=== PATIENT | male | born 1950 ===

== ENCOUNTER 2020-05-28 11:56 | Inpatient (IN) | payer MEDICARE, OTHER, SELFPAY ==
[2020-05-28] VITALS (27 sets, daily range): BP systolic 89–161; BP diastolic 53–103; PULSE 80–106; RESP 11–24; TEMP 36.9–39.5; O2SAT 93–98; BMI 30.7
--- NOTE | 2020-05-28 | PATH_ITS ---
[facility] Accession Number: [id number] . 01 Material submitted: . colon - SIGMOID COLON . 01 Clinical history: . SYMPTOMS RELATED TO COVID, SOB, ABD PAIN STITCH IS IN PROXIMAL END . 02 Diagnosis: Sigmoid Colon, Sigmoid Colectomy: Acute suppurative diverticulitis with abscess formation. Serositis. Negative for dysplasia or malignancy. MRV 05/31/2020 1613 Local . 02 Electronically signed: . Tyesha Holliday MD, Pathologist NPI- [id number] . 01 Gross description: . The specimen is received in formalin, labeled sigmoid colon and consists of a 10.0 cm in length by 2.5 cm in diameter portion of colon with a suture designated proximal end. Both margins are stapled. The specimen has been previously partially opened. The serosa is richardson-pink to pink-purple with fibrinous adhesion, and there is a moderate amount of attached adipose tissue with adherent richardson-still purulent exudate. Opening reveals multiple diverticula and a 4.5 x 1.5 x 1.0 cm richardson-still to green abscess cavity extending into the adipose tissue, located greater than 4 cm from the proximal and distal margins. The wall thickness ranges from 0.3 to 2.0 cm. Sectioning through the attached adipose tissue reveals multiple lymph nodes ranging from 0.1 to 0.4 cm. Also received are multiple additional fragments of colon and richardson-yellow soft tissue measuring 4.5 x 3.0 x 2.0 cm in aggregate. Pneumatic Jack Operator sections are submitted. . A1: proximal margin, loan servicing representative perpendicular sections (blue). A2: distal margin, loan servicing representative perpendicular sections (black). A3-A4: loan servicing representative diverticula. A5-A6: loan servicing representative abscess cavity. A7: lymph nodes. A8: loan servicing representative sections of additional colon fragments. ([id number]) /MRV 05/30/2020 1637 Local . 02 Pathologist provided ICD-10: K57.00 . 02 CPT . 223066 Performed at: 01 [facility] [address] [id number] MD Leonard Cain MD Phone: [phone] Performed at: 02 [place] [id number] [address] [place] [id number] MD Tyesha Holliday MD Phone: [phone]
[2020-05-28 13:02] LABS: COVID19 -Nasal RAPID Negative (Negative)
[2020-05-28 13:17] LABS: Add Manual Diff / Slide Review NO; Basophils Absolute Auto 0 /uL (0-100); Basophils Percent Auto 0.5 % (0-2); Eosinophils Absolute Auto 100 /uL (0-450); Eosinophils Percent Auto 0.8 % (2-4); Hematocrit 44.4 % (41-53); Hemoglobin 15.6 g/dL (13.5-17.5); Lymphocytes Absolute Auto 1000 /uL (1100-4500); Lymphocytes Percent Auto 10.4 % (25-40); Mean Corpuscular HGB Conc 35.2 % (30-36); Mean Corpuscular Hemoglobin 34.5 PG (26-34); Mean Corpuscular Volume 98.1 fL (80-100); Monocytes Absolute Auto 700 /uL (0-900); Monocytes Percent Auto 7.2 % (3-14); Neutrophils Absolute Auto 8200 /uL (1500-7000); Neutrophils Percent Auto 81.1 % (50-75); Platelet Count 233 X10^3/uL (150-400); Red Blood Cell Count 4.53 X10^6/uL (4.5-5.9); White Blood Cell Count 10.1 X10^3/uL (4.5-11.0)
[2020-05-28 13:24] LABS: INR 1.2 (0.9-1.3)
[2020-05-28 13:27] LABS: PTT Partial Thromboplastin Tim 31 SECONDS (26.4-36.2)
[2020-05-28 13:29] LABS: Alanine Aminotransferase 29 IU/L (<50); Albumin 4.5 g/dL (3.5-5.0); Albumin Globulin Ratio 1.1 (1.0-2.8); Alkaline Phosphatase 85 U/L (38-126); Amylase 54 U/L (30-110); Aspartate Aminotransferase 27 IU/L (17-59); BUN Creatinine Ratio 20.7 (6-22); Bilirubin Total 2.2 mg/dL (0.2-1.3); Blood Urea Nitrogen 19 mg/dL (9-20); Calcium 9.7 mg/dL (8.4-10.2); Carbon Dioxide 29 mmol/L (22-32); Chloride 101 mmol/L (98-107); Creatine Kinase 77 U/L (55-170); Estimated Glomerular Filt Rate > 60.0 mL/min (>60); Glucose 121 mg/dL (80-110); HEMOLYSIS < 15 (0-50); Lactate (Lactic Acid) 1.2 mmol/L (0.7-2.1); Lipase 31 U/L (23-300); Potassium 3.8 mmol/L (3.4-5.1); Sodium 137 mmol/L (137-145); Total Protein 8.5 g/dL (6.3-8.2)
[2020-05-28 13:40] LABS: Troponin I < 0.012 ng/mL (0.01-0.034)
[2020-05-28 13:44] LABS: Ethanol (ETOH) < 10 mg/dL
[2020-05-28 13:45] LABS: Procalcitonin 1.95 ng/mL (<0.5)
[2020-05-28 14:14] LABS: D Dimer 2432 ng/mL (<230)
--- NOTE | 2020-05-28 14:22 | DI.CT.S_ITS ---
PROCEDURE: CT ABDOMEN PELVIS W CON INDICATIONS: abd pain, fever TECHNIQUE: After the administration of intravenous contrast, 5 mm thick sections acquired from the diaphragm to the symphysis. 5 mm coronal and sagittal reformats were acquired. For radiation dose reduction, the following was used: automated exposure control, adjustment of mA and/or kV according to patient size. COMPARISON: [facility], CT, CT ANGIO CHEST PE PROTOCOL, 05/28/2020, 14:32. FINDINGS: Image quality: Excellent. ABDOMEN: Lung bases: Mild dependent atelectasis can be seen. Heart size is normal. Solid organs: Liver is normal in size and enhancement. Diffuse fatty liver infiltration is noted. Gallbladder wall is not thickened. Biliary system is non dilated. Pancreas enhances normally. Spleen is normal in size and enhancement. No adrenal nodules. Kidneys demonstrate normal size and enhancement, without hydronephrosis. Along the lateral aspect of the left kidney, there is a simple appearing cyst seen that measures water density and 1.8 cm. Peritoneum and bowel: There is a moderate amount of pneumoperitoneum. There is focal wall thickening seen involving the sigmoid colon, with diverticula formation within this region. Surrounding inflammatory changes are seen. No loculated fluid collection is seen to suggest abscess. Mild dilatation of adjacent small bowel loops can be seen, with mildly thickened [place]. No transition point is seen to suggest bowel obstruction. Nodes and vessels: No retroperitoneal or mesenteric adenopathy by size criteria. Aorta and inferior vena cava are normal in size. Miscellaneous: No ventral hernias. PELVIS: Genitourinary: The bladder is relatively decompressed. Moderate circumferential bladder wall thickening is seen. Miscellaneous: No inguinal hernias or adenopathy. Bones: No suspicious bony lesions. No vertebral body compression fractures. Moderate lower lumbar spine degenerative changes are seen. Milder degenerative changes are seen elsewhere. IMPRESSION: Perforated diverticulitis until proven otherwise. No loculated abscess can be seen. Adjacent to the sigmoid inflammatory change, there are thickened, dilated loops of small bowel, which are considered to be reactive to the diverticulitis. Moderate circumferential bladder wall thickening is seen, which is also attributed to the diverticulitis. When clinically appropriate (following adequate treatment of the patient's current clinical episode) a colonoscopy is recommended for further evaluation for a potential underlying mass (if not already recently done). Incidental note is made of: Fatty liver infiltration Simple appearing left renal cyst Lower lumbar spine degenerative change Note: Findings and recommendations discussed by telephone with OTIS Barahona at 2:32 p.m. [place] time on May 28, 2020. Dictated by: Karan Cifuentes M.D. on 05/28/2020 at 14:29 Approved by: Karan Cifuentes M.D. on 05/28/2020 at 14:34
--- NOTE | 2020-05-28 14:22 | DI.CT.S_ITS ---
PROCEDURE: CT ANGIO CHEST PE PROTOCOL INDICATIONS: Short of breath, ddimer 2432 TECHNIQUE: After the administration of intravenous contrast, 2 mm thick sections acquired from the pulmonary apices to the posterior costophrenic angles. 3-dimensional maximum intensity projection (MIP) coronal and sagittal reformats were then acquired through the thorax. For radiation dose reduction, the following was used: automated exposure control, adjustment of mA and/or kV according to patient size. COMPARISON: [facility], CT, CT ABDOMEN PELVIS W CON, 05/28/2020, 14:32. FINDINGS: Image quality: Excellent. Pulmonary arteries: Pulmonary arteries are normal in size, and demonstrate no intraluminal filling defects to suggest central pulmonary embolism. Lungs and pleura: Dependent atelectasis can be seen. No pleural effusions or pneumothorax. Central and peripheral airways are patent. Mediastinum: Heart size is normal, without pericardial effusion. There is moderate coronary artery calcification. No mediastinal or hilar adenopathy. Thoracic aorta is normal in caliber and enhancement. Esophagus is normal in caliber. There is a small hiatal hernia. Bones and chest wall: No suspicious bony lesions. Ribs and thoracic spine appear intact throughout. Thyroid gland is small in size. No axillary or supraclavicular adenopathy. Abdomen: Pneumoperitoneum can be seen within upper. There is a simple appearing cyst exophytic from left kidney laterally measuring 1.8 cm. The visualized portions of the upper abdominal structures are otherwise unremarkable for imaging technique. IMPRESSION: Negative for pulmonary embolism. Pneumoperitoneum can be seen. Please see the accompanying report of the abdomen and pelvis CT. Incidental note is made of: Small hiatal hernia Moderate coronary artery calcification Simple appearing left renal cyst Dictated by: Karan Cifuentes M.D. on 05/28/2020 at 14:26 Approved by: Karan Cifuentes M.D. on 05/28/2020 at 14:29
[2020-05-28] MEDS: ONDANSETRON 4 MG/2 ML INJ IV ×2 (14:30→22:54)
[2020-05-28] MEDS: SODIUM CHLORIDE 0.9% 1,000 ML 1000 ML IV (14:30)
[2020-05-28] MEDS: MORPHINE 4 MG/ML INJ IV (14:31)
[2020-05-28 14:42] LABS: RBC Urine None Seen (0-5/HPF)
[2020-05-28 14:46] LABS: Bilirubin Urine UA 2+ (NEGATIVE); Glucose Urine UA TRACE g/dL (Negative); Ketones Urine UA 3+ (NEGATIVE); Leukocyte Esterase Urine UA TRACE (NEGATIVE); Nitrite Urine UA NEGATIVE (Negative); Occult Blood Urine UA NEGATIVE (Negative); Protein Urine UA 2+ (Negative); Specific Gravity Urine UA 1.025 (1.000-1.035); pH Urine UA 5.5 (4.5-8.0)
[2020-05-28 14:47] LABS: Color Urine UA OTHER
[2020-05-28 14:52] LABS: Amorphous Sediment Urine 1+; Appearance Urine UA Slightly Cloudy; Ictotest Urine Negative (Negative); Squamous Epithelial Cell Urine 1-5 /HPF (0-5/HPF); WBC Urine 5-10/HPF (0-5/HPF)
[2020-05-28 14:53] LABS: Bacteria Urine Few (2-10); Culture Indicated Urine Specimen Cultured; Mucus Urine 3+ (Negative); UR Morphine/Opiate cutoff 300 Negative (Negative); Ur Creatinine Normal (Normal); Ur Specific Gravity Normal (Normal); Urine Amphetamines Negative (Negative); Urine Barbiturates Negative (Negative); Urine Benzodiazepines Negative (Negative); Urine Cocaine Negative (Negative); Urine MDMA Negative (Negative); Urine Methadone Negative (Negative); Urine Methamphetamines Negative (Negative); Urine Oxycodone Negative (Negative); Urine Phencyclidine Negative (Negative); Urine Tetrahydrocannabinol Positive (Negative); Urine Tricyclic Antidepressant Negative (Negative); Urine pH Normal (Normal)
--- NOTE | 2020-05-28 15:20 | ED_ITS ---
HPI - Fever <OTIS Barahona-BC - Last Filed: 05/28/20 16:13> General Chief Complaint: Fever Stated Complaint: Symptoms Related To COVID, SOB, Abd Pain Time Seen by Provider: 05/28/20 12:22 Source: patient Mode of arrival: Ambulatory Limitations: no limitations History of Present Illness HPI Narrative: The patient is a 69-year-old male former smoker who denies pertinent medical history who presents with a chief complaint of multiple complaints. He complains of lower abdominal pain that started a few days ago. He states he was working on his boat, lifting a lot and felt subsequent abdominal pain. He states that he also feels short of breath for the past few days and is unable to walk up stairs any longer. He notes that he has had fevers on and off up to 101-102 for the past 2-3 days. He states that he feels very run down. Denies any dysuria urgency or frequency. He does wonder if this is related to his 1st coronavirus vaccination which he had on Friday. He does note that he drinks every night, at least a few drinks and states that he knows he drinks too much. He denies having a lot of medical history, though notes that he does not go to his primary care physician has not seen them in many years. 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 He does complain of fatigue muscle aches and chills indigestion to the shortness of breath and abdominal pain. Patient states that last solid intake was yesterday, he had water this morning at approximately 9 or 10:00 a.m.. Related Data Home Medications Medication Instructions Recorded Confirmed aspirin 325 mg PO QDAY #0 07/13/16 05/28/20 multivitamin [Multiple Vitamins] 1 tab PO QDAY #0 07/13/16 05/28/20 Previous Rx's Medication Instructions Recorded cephalexin [Keflex] 500 mg PO Q6H #40 cap 07/13/16 Allergies Allergy/AdvReac Type Severity Reaction Status Date / Time No Known Drug Allergies Allergy Verified 05/28/20 17:29 Review of Systems <STARR BarahonaBC - Last Filed: 05/28/20 16:13> Review of Systems Narrative: GENERAL: Denies chills, fatigue, malaise, fever, sweats. HEENT: Denies sinus pain, ear pain, sore throat, difficulty swallowing, dizziness. RESPIRATORY: See HPI CARDIOVASCULAR: Denies chest pain, palpitations, orthopnea, edema, GASTROINTESTINAL: See HPI : Denies dysuria, frequency, incontinence, hematuria, urinary retention. MUSCULOSKELETAL: denies weakness, joint pain, or bony pain SKIN: Denies rash, skin lesions, or other NEUROLOGIC: Denies weakness, headache, numbness, change in speech, confusion, seizures, incoordination. PSYCHIATRIC: No concerning psychosocial issues. 12 point review of systems is negative except for those stated above Patient History <Julia AMALIA LuuP- - Last Filed: 05/28/20 16:13> Social History Smoking Status: Former smoker Smoking Status: Former smoker alcohol intake frequency: 3 or more drinks per day Substance Use Type: marijuana Exam <Julia LuuAMALIAP- - Last Filed: 05/28/20 16:13> Narrative Exam Narrative: GENERAL: This is a well-nourished, well-developed patient, in mild distress. HEAD: Atraumatic. Normocephalic. No temporal or scalp tenderness. EYES: Pupils equal round and reactive. Extraocular motions intact. No scleral icterus. No injection or drainage. ENT: Nose without bleeding, purulent drainage or septal hematoma. No cough. No increased respiratory effort. No accessory muscle use. Airway patent. NECK: Trachea midline. No JVD or lymphadenopathy. Supple, nontender, no meningeal signs. CARDIOVASCULAR: Regular rate and rhythm RESPIRATORY: Clear to auscultation. Breath sounds equal bilaterally. No wheezes, rales, or rhonchi. No cough. No increased respiratory effort. No accessory muscle use. GASTROINTESTINAL: Abdomen soft, diffusely tender to palpation with guarding noted left lower quadrant, right lower quadrant. Active bowel sounds. EXTREMITIES: No clubbing, cyanosis, or edema. No joint tenderness, effusion, or edema noted. BACK: Nontender without deformity or crepitance. No flank tenderness. NEURO: AOx3. SKIN: No rash or erythema on visible skin Initial Vital Signs Initial Vital Signs: Vital Signs Temperature 98.6 F 05/28/20 12:18 Pulse Rate 102 H 05/28/20 12:18 Respiratory Rate 24 05/28/20 12:18 Blood Pressure 156/98 H 05/28/20 12:18 Pulse Oximetry 97 05/28/20 12:18 <Joseph Groves MD - Last Filed: 05/28/20 18:48> Initial Vital Signs Initial Vital Signs: Vital Signs Temperature 98.6 F 05/28/20 12:18 Pulse Rate 102 H 05/28/20 12:18 Respiratory Rate 24 05/28/20 12:18 Blood Pressure 156/98 H 05/28/20 12:18 Pulse Oximetry 97 05/28/20 12:18 Scores <SABRINA Barahona - Last Filed: 05/28/20 16:13> GCS Noah coma scale eye opening: Spontaneous Gays coma scale verbal response: Orientated Noah coma scale motor response: Obey commands Noah coma scale total score: 15 Course <SABRINA Barahona - Last Filed: 05/28/20 16:13> Orders Ordered: ED Orders 05/28/20 12:13 COVID19 Stat 05/28/20 13:05 Amylase Stat Complete Blood Count AUTO DIFF Stat Comprehensive Metabolic Panel Stat D Dimer Stat Ethanol (ETOH) Stat Lactate (Lactic Acid) Stat Lipase Stat Partial Thromboplastin Time Stat Procalcitonin Stat Prothrombin Time INR Stat Troponin & CK Cardiac Panel Stat 05/28/20 13:38 Blood Culture Stat 05/28/20 14:22 CT abdomen pelvis w con Stat CT angio chest PE protocol Stat 05/28/20 14:30 Ictotest Urine Stat UA Complete [Urinalysis and Microscopic] Stat Urine Culture Stat Urine Drug Screen, Rapid Stat Fentanyl (Fentanyl 100 Mcg/2 Ml Inj) 0 mcg IV Q5MIN PRN PRN Reason: Pain, Severe (7-10) Hydromorphone HCl (Hydromorphone 2 Mg Inj) 0 mg IV Q5MIN PRN PRN Reason: Pain, Mild (1-3) Lactated Ringer's (Lactated Ringers) 1,000 mls @ 120 mls/hr IV CONT FERNANDA Lorazepam (Lorazepam 2 Mg/Ml Inj) 0.5 mg IV NOW PRN PRN Reason: Anxiety Ondansetron HCl (Ondansetron 4 Mg/2 Ml Inj) 4 mg IV NOW PRN PRN Reason: Nausea And Vomiting Oxycodone HCl (Oxycodone Ir 5 Mg Tablet) 5 mg PO PACUNOW PRN PRN Reason: Mild or moderate pain Discontinued Medications Sodium Chloride (Normal Saline 0.9%) 1,000 mls @ 1,000 mls/hr IV BOLUS ONE Stop: 05/28/20 15:21 Last Infusion: 05/28/20 15:37 Dose: 0 mls/hr Documented by: Admin: 05/28/20 14:30 Dose: 1,000 mls/hr Documented by: MAXIMILIANO Piperacillin Sod/Tazobactam (Sod 4.5 gm/ Sodium Chloride) 100 mls @ 200 mls/hr IV NOW ONE Stop: 05/28/20 16:00 Last Infusion: 05/28/20 16:54 Dose: 0 mls/hr Documented by: Admin: 05/28/20 16:14 Dose: 200 mls/hr Documented by: MAXIMILIANO Morphine Sulfate (Morphine 4 Mg/Ml Inj) 4 mg IV NOW ONE Stop: 05/28/20 14:23 Last Admin: 05/28/20 14:31 Dose: 4 mg Documented by: MAXIMILIANO Ondansetron HCl (Ondansetron 4 Mg/2 Ml Inj) 4 mg IV NOW ONE Stop: 05/28/20 14:23 Last Admin: 05/28/20 14:30 Dose: 4 mg Documented by: MAXIMILIANO Vital Signs Vital signs: Vital Signs - 8 hr 05/28/20 12:18 05/28/20 12:30 05/28/20 13:00 Temperature 98.6 F Pulse Rate 102 H 96 H 95 H Respiratory Rate 24 Blood Pressure 156/98 H 136/88 157/103 H Pulse Oximetry 97 95 95 05/28/20 13:30 05/28/20 14:00 05/28/20 14:01 Temperature Pulse Rate 91 H 83 86 Respiratory Rate Blood Pressure 100/53 L Pulse Oximetry 93 94 95 05/28/20 14:30 05/28/20 14:31 05/28/20 14:48 Temperature Pulse Rate 102 H 91 H 101 H Respiratory Rate Blood Pressure 149/89 H 161/95 H Pulse Oximetry 94 95 95 05/28/20 15:00 05/28/20 15:30 05/28/20 16:00 Temperature Pulse Rate 99 H 106 H 106 H Respiratory Rate Blood Pressure 144/80 H 134/86 136/89 Pulse Oximetry 95 94 95 05/28/20 16:30 05/28/20 17:00 Temperature Pulse Rate 104 H 105 H Respiratory Rate Blood Pressure 135/87 139/87 Pulse Oximetry 96 94 <Joseph Groves MD - Last Filed: 05/28/20 18:48> Orders Ordered: ED Orders 05/28/20 12:13 COVID19 Stat 05/28/20 13:05 Amylase Stat Complete Blood Count AUTO DIFF Stat Comprehensive Metabolic Panel Stat D Dimer Stat Ethanol (ETOH) Stat Lactate (Lactic Acid) Stat Lipase Stat Partial Thromboplastin Time Stat Procalcitonin Stat Prothrombin Time INR Stat Troponin & CK Cardiac Panel Stat 05/28/20 13:38 Blood Culture Stat 05/28/20 14:22 CT abdomen pelvis w con Stat CT angio chest PE protocol Stat 05/28/20 14:30 Ictotest Urine Stat UA Complete [Urinalysis and Microscopic] Stat Urine Culture Stat Urine Drug Screen, Rapid Stat Fentanyl (Fentanyl 100 Mcg/2 Ml Inj) 0 mcg IV Q5MIN PRN PRN Reason: Pain, Severe (7-10) Hydromorphone HCl (Hydromorphone 2 Mg Inj) 0 mg IV Q5MIN PRN PRN Reason: Pain, Mild (1-3) Lactated Ringer's (Lactated Ringers) 1,000 mls @ 120 mls/hr IV CONT FERNANDA Lorazepam (Lorazepam 2 Mg/Ml Inj) 0.5 mg IV NOW PRN PRN Reason: Anxiety Ondansetron HCl (Ondansetron 4 Mg/2 Ml Inj) 4 mg IV NOW PRN PRN Reason: Nausea And Vomiting Oxycodone HCl (Oxycodone Ir 5 Mg Tablet) 5 mg PO PACUNOW PRN PRN Reason: Mild or moderate pain Discontinued Medications Sodium Chloride (Normal Saline 0.9%) 1,000 mls @ 1,000 mls/hr IV BOLUS ONE Stop: 05/28/20 15:21 Last Infusion: 05/28/20 15:37 Dose: 0 mls/hr Documented by: Admin: 05/28/20 14:30 Dose: 1,000 mls/hr Documented by: MAXIMILIANO Piperacillin Sod/Tazobactam (Sod 4.5 gm/ Sodium Chloride) 100 mls @ 200 mls/hr IV NOW ONE Stop: 05/28/20 16:00 Last Infusion: 05/28/20 16:54 Dose: 0 mls/hr Documented by: Admin: 05/28/20 16:14 Dose: 200 mls/hr Documented by: MAXIMILIANO Morphine Sulfate (Morphine 4 Mg/Ml Inj) 4 mg IV NOW ONE Stop: 05/28/20 14:23 Last Admin: 05/28/20 14:31 Dose: 4 mg Documented by: MAXIMILIANO Ondansetron HCl (Ondansetron 4 Mg/2 Ml Inj) 4 mg IV NOW ONE Stop: 05/28/20 14:23 Last Admin: 05/28/20 14:30 Dose: 4 mg Documented by: MAXIMILIANO Vital Signs Vital signs: Vital Signs - 8 hr 05/28/20 12:18 05/28/20 12:30 05/28/20 13:00 Temperature 98.6 F Pulse Rate 102 H 96 H 95 H Respiratory Rate 24 Blood Pressure 156/98 H 136/88 157/103 H Pulse Oximetry 97 95 95 05/28/20 13:30 05/28/20 14:00 05/28/20 14:01 Temperature Pulse Rate 91 H 83 86 Respiratory Rate Blood Pressure 100/53 L Pulse Oximetry 93 94 95 05/28/20 14:30 05/28/20 14:31 05/28/20 14:48 Temperature Pulse Rate 102 H 91 H 101 H Respiratory Rate Blood Pressure 149/89 H 161/95 H Pulse Oximetry 94 95 95 05/28/20 15:00 05/28/20 15:30 05/28/20 16:00 Temperature Pulse Rate 99 H 106 H 106 H Respiratory Rate Blood Pressure 144/80 H 134/86 136/89 Pulse Oximetry 95 94 95 05/28/20 16:30 05/28/20 17:00 Temperature Pulse Rate 104 H 105 H Respiratory Rate Blood Pressure 135/87 139/87 Pulse Oximetry 96 94 MDM - Fever <OTIS Barahona- - Last Filed: 05/28/20 16:13> Lab Data Attestation: I reviewed the patient's lab results. Result diagrams: 05/28/20 13:05 05/28/20 13:05 Labs: Lab Results 05/28/20 05/28/20 05/28/20 Range/Units 12:13 13:05 13:05 WBC 10.1 (4.5-11.0) X10^3/uL RBC 4.53 (4.5-5.9) X10^6/uL Hgb 15.6 (13.5-17.5) g/dL Hct 44.4 (41-53) % MCV 98.1 (80-100) fL MCH 34.5 H (26-34) PG MCHC 35.2 (30-36) % RDW 13.0 (11.6-14.8) % Plt Count 233 (150-400) X10^3/uL Neut % (Auto) 81.1 H (50-75) % Lymph % (Auto) 10.4 L (25-40) % [place] % (Auto) 7.2 (3-14) % Eos % (Auto) 0.8 L (2-4) % Baso % (Auto) 0.5 (0-2) % Neut # (Auto) 8200 H (5455-6519) /uL Lymph # (Auto) 1000 L (2736-8610) /uL [place] # (Auto) 700 (0-900) /uL Eos # (Auto) 100 (0-450) /uL Baso # (Auto) 0 (0-100) /uL PT 14.0 H (10.1-12.7) SECONDS INR 1.2 (0.9-1.3) APTT 31 (26.4-36.2) SECONDS D-Dimer (<230) ng/mL Sodium (137-145) mmol/L Potassium (3.4-5.1) mmol/L Chloride (98-107) mmol/L Carbon Dioxide (22-32) mmol/L BUN (9-20) mg/dL Creatinine (0.66-1.25) mg/dL Estimated GFR (>60) mL/min BUN/Creatinine Ratio (6-22) Glucose (80-110) mg/dL Lactate (0.7-2.1) mmol/L Calcium (8.4-10.2) mg/dL Total Bilirubin (0.2-1.3) mg/dL AST (17-59) IU/L ALT (<50) IU/L Alkaline Phosphatase (38-126) U/L Total Creatine Kinase (55-170) U/L CK-MB (CK-2) CK-MB (CK-2) Rel Index Troponin I (0.01-0.034) ng/mL Total Protein (6.3-8.2) g/dL Albumin (3.5-5.0) g/dL Globulin (1.7-4.1) g/dL Albumin/Globulin Ratio (1.0-2.8) Amylase (30-110) U/L Lipase (23-300) U/L Procalcitonin (<0.5) ng/mL Urine Color Urine Appearance Urine pH (4.5-8.0) Ur Specific [place] (1.000-1.035) Urine Protein (Negative) Urine Glucose (UA) (Negative) g/dL Urine Ketones (NEGATIVE) Urine Occult Blood (Negative) Urine Nitrate (Negative) Urine Bilirubin (NEGATIVE) Ur Bilirubin Confirm (Negative) Urine Urobilinogen (0.2) E.U./dL Ur Leukocyte Esterase (NEGATIVE) Urine RBC (0-5/HPF) Urine WBC (0-5/HPF) Ur Squamous Epith Cells (0-5/HPF) Amorphous Sediment Urine Bacteria (None) Urine Mucus (Negative) Ur Culture Indicated? U Opiates 300ng/mL cut (Negative) Ur Oxycodone Screen (Negative) Urine Methadone Screen (Negative) Ur Barbiturates Screen (Negative) U Tricyclic Antidepress (Negative) Ur Phencyclidine Scrn (Negative) Ur Amphetamines Screen (Negative) U Methamphetamines Scrn (Negative) Ur MDMA Scrn (Ecstasy) (Negative) U Benzodiazepines Scrn (Negative) Urine Cocaine Screen (Negative) U Marijuana (THC) Screen (Negative) Ethyl Alcohol ( - 10) mg/dL SARS-CoV-2 (PCR) Negative (Negative) 05/28/20 05/28/20 05/28/20 Range/Units 13:05 13:05 13:05 WBC (4.5-11.0) X10^3/uL RBC (4.5-5.9) X10^6/uL Hgb (13.5-17.5) g/dL Hct (41-53) % MCV (80-100) fL MCH (26-34) PG MCHC (30-36) % RDW (11.6-14.8) % Plt Count (150-400) X10^3/uL Neut % (Auto) (50-75) % Lymph % (Auto) (25-40) % [place] % (Auto) (3-14) % Eos % (Auto) (2-4) % Baso % (Auto) (0-2) % Neut # (Auto) (3885-4804) /uL Lymph # (Auto) (5584-6600) /uL [place] # (Auto) (0-900) /uL Eos # (Auto) (0-450) /uL Baso # (Auto) (0-100) /uL PT (10.1-12.7) SECONDS INR (0.9-1.3) APTT (26.4-36.2) SECONDS D-Dimer (<230) ng/mL Sodium 137 (137-145) mmol/L Potassium 3.8 (3.4-5.1) mmol/L Chloride 101 (98-107) mmol/L Carbon Dioxide 29 (22-32) mmol/L BUN 19 (9-20) mg/dL Creatinine 0.92 (0.66-1.25) mg/dL Estimated GFR > 60.0 (>60) mL/min BUN/Creatinine Ratio 20.7 (6-22) Glucose 121 H (80-110) mg/dL Lactate 1.2 (0.7-2.1) mmol/L Calcium 9.7 (8.4-10.2) mg/dL Total Bilirubin 2.2 H (0.2-1.3) mg/dL AST 27 (17-59) IU/L ALT 29 (<50) IU/L Alkaline Phosphatase 85 (38-126) U/L Total Creatine Kinase 77 (55-170) U/L CK-MB (CK-2) TNP CK-MB (CK-2) Rel Index TNP Troponin I < 0.012 (0.01-0.034) ng/mL Total Protein 8.5 H (6.3-8.2) g/dL Albumin 4.5 (3.5-5.0) g/dL Globulin 4.0 (1.7-4.1) g/dL Albumin/Globulin Ratio 1.1 (1.0-2.8) Amylase 54 (30-110) U/L Lipase 31 (23-300) U/L Procalcitonin 1.95 H (<0.5) ng/mL Urine Color Urine Appearance Urine pH (4.5-8.0) Ur Specific [place] (1.000-1.035) Urine Protein (Negative) Urine Glucose (UA) (Negative) g/dL Urine Ketones (NEGATIVE) Urine Occult Blood (Negative) Urine Nitrate (Negative) Urine Bilirubin (NEGATIVE) Ur Bilirubin Confirm (Negative) Urine Urobilinogen (0.2) E.U./dL Ur Leukocyte Esterase (NEGATIVE) Urine RBC (0-5/HPF) Urine WBC (0-5/HPF) Ur Squamous Epith Cells (0-5/HPF) Amorphous Sediment Urine Bacteria (None) Urine Mucus (Negative) Ur Culture Indicated? U Opiates 300ng/mL cut (Negative) Ur Oxycodone Screen (Negative) Urine Methadone Screen (Negative) Ur Barbiturates Screen (Negative) U Tricyclic Antidepress (Negative) Ur Phencyclidine Scrn (Negative) Ur Amphetamines Screen (Negative) U Methamphetamines Scrn (Negative) Ur MDMA Scrn (Ecstasy) (Negative) U Benzodiazepines Scrn (Negative) Urine Cocaine Screen (Negative) U Marijuana (THC) Screen (Negative) Ethyl Alcohol < 10 ( - 10) mg/dL SARS-CoV-2 (PCR) (Negative) 05/28/20 05/28/20 05/28/20 Range/Units 13:05 14:30 14:30 WBC (4.5-11.0) X10^3/uL RBC (4.5-5.9) X10^6/uL Hgb (13.5-17.5) g/dL Hct (41-53) % MCV (80-100) fL MCH (26-34) PG MCHC (30-36) % RDW (11.6-14.8) % Plt Count (150-400) X10^3/uL Neut % (Auto) (50-75) % Lymph % (Auto) (25-40) % [place] % (Auto) (3-14) % Eos % (Auto) (2-4) % Baso % (Auto) (0-2) % Neut # (Auto) (7447-0979) /uL Lymph # (Auto) (4310-8205) /uL [place] # (Auto) (0-900) /uL Eos # (Auto) (0-450) /uL Baso # (Auto) (0-100) /uL PT (10.1-12.7) SECONDS INR (0.9-1.3) APTT (26.4-36.2) SECONDS D-Dimer 2432 H (<230) ng/mL Sodium (137-145) mmol/L Potassium (3.4-5.1) mmol/L Chloride (98-107) mmol/L Carbon Dioxide (22-32) mmol/L BUN (9-20) mg/dL Creatinine (0.66-1.25) mg/dL Estimated GFR (>60) mL/min BUN/Creatinine Ratio (6-22) Glucose (80-110) mg/dL Lactate (0.7-2.1) mmol/L Calcium (8.4-10.2) mg/dL Total Bilirubin (0.2-1.3) mg/dL AST (17-59) IU/L ALT (<50) IU/L Alkaline Phosphatase (38-126) U/L Total Creatine Kinase (55-170) U/L CK-MB (CK-2) CK-MB (CK-2) Rel Index Troponin I (0.01-0.034) ng/mL Total Protein (6.3-8.2) g/dL Albumin (3.5-5.0) g/dL Globulin (1.7-4.1) g/dL Albumin/Globulin Ratio (1.0-2.8) Amylase (30-110) U/L Lipase (23-300) U/L Procalcitonin (<0.5) ng/mL Urine Color Other Urine Appearance Slightly cloudy Urine pH 5.5 (4.5-8.0) Ur Specific [place] 1.025 (1.000-1.035) Urine Protein 2+ H (Negative) Urine Glucose (UA) Trace H (Negative) g/dL Urine Ketones 3+ H (NEGATIVE) Urine Occult Blood Negative (Negative) Urine Nitrate Negative (Negative) Urine Bilirubin 2+ H (NEGATIVE) Ur Bilirubin Confirm Negative (Negative) Urine Urobilinogen 1.0 (0.2) E.U./dL Ur Leukocyte Esterase Trace H (NEGATIVE) Urine RBC None seen (0-5/HPF) Urine WBC 5-10/hpf H (0-5/HPF) Ur Squamous Epith Cells 1-5 /hpf (0-5/HPF) Amorphous Sediment 1+ Urine Bacteria Few (2-10) H (None) Urine Mucus 3+ H (Negative) Ur Culture Indicated? Specimen cultured U Opiates 300ng/mL cut Negative (Negative) Ur Oxycodone Screen Negative (Negative) Urine Methadone Screen Negative (Negative) Ur Barbiturates Screen Negative (Negative) U Tricyclic Antidepress Negative (Negative) Ur Phencyclidine Scrn Negative (Negative) Ur Amphetamines Screen Negative (Negative) U Methamphetamines Scrn Negative (Negative) Ur MDMA Scrn (Ecstasy) Negative (Negative) U Benzodiazepines Scrn Negative (Negative) Urine Cocaine Screen Negative (Negative) U Marijuana (THC) Screen Positive H (Negative) Ethyl Alcohol ( - 10) mg/dL SARS-CoV-2 (PCR) (Negative) Imaging Data CT scan - chest: Radiologist's Impression: [address] [place] [id number] Scan ReportSigned Patient: Maxim Childs RMR#: [id number]: 1950cct:[id number]/Sex: 69 / MDate of Service: 05/28/20Loc: EDAccession Number: [id number] Procedure: CT angio chest PE protocol Ordering Provider: Julia Luu [facility] PROCEDURE: CT ANGIO CHEST PE PROTOCOL INDICATIONS: Short of breath, ddimer 2432 TECHNIQUE: After the administration of intravenous contrast, 2 mm thick sections acquired from the pulmonary apices to the posterior costophrenic angles. 3-dimensional maximum intensity projection (MIP) coronal and sagittal reformats were then acquired through the thorax. For radiation dose reduction, the following was used: automated exposure control, adjustment of mA and/or kV according to patient size. COMPARISON: [facility], CT, CT ABDOMEN PELVIS W CON, 05/28/2020, 14:32. FINDINGS: Image quality: Excellent. Pulmonary arteries: Pulmonary arteries are normal in size, and demonstrate no intraluminal filling defects to suggest central pulmonary embolism. Lungs and pleura: Dependent atelectasis can be seen. No pleural effusions or pneumothorax. Central and peripheral airways are patent. Mediastinum: Heart size is normal, without pericardial effusion. There is moderate coronary artery calcification. No mediastinal or hilar adenopathy. Thoracic aorta is normal in caliber and enhancement. Esophagus is normal in caliber. There is a small hiatal hernia. Bones and chest wall: No suspicious bony lesions. Ribs and thoracic spine appear intact throughout. Thyroid gland is small in size. No axillary or supraclavicular adenopathy. Abdomen: Pneumoperitoneum can be seen within upper. There is a simple appearing cyst exophytic from left kidney laterally measuring 1.8 cm. The visualized portions of the upper abdominal structures are otherwise unremarkable for imaging technique. IMPRESSION: Negative for pulmonary embolism. Pneumoperitoneum can be seen. Please see the accompanying report of the abdomen and pelvis CT. Incidental note is made of: Small hiatal hernia Moderate coronary artery calcification Simple appearing left renal cyst Dictated by: Karan Cifuentes M.D. on 05/28/2020 at 14:26 Approved by: Karan Cifuentes M.D. on 05/28/2020 at 14:29 CT scan - abdomen/pelvis: Radiologist's Impression: [facility] [address] [place] [address] [id number] Scan ReportSigned Patient: Maxim Childs RMR#: [id number]: [id number]:[id number]/Sex: 69 / MDate of Service: 05/28/20Loc: EDAccession Number: [id number] Procedure: CT abdomen pelvis w con Ordering Provider: Julia Luu- PROCEDURE: CT ABDOMEN PELVIS W CON INDICATIONS: abd pain, fever TECHNIQUE: After the administration of intravenous contrast, 5 mm thick sections acquired from the diaphragm to the symphysis. 5 mm coronal and sagittal reformats were acquired. For radiation dose reduction, the following was used: automated exposure control, adjustment of mA and/or kV according to patient size. COMPARISON: [facility], CT, CT ANGIO CHEST PE PROTOCOL, 05/28/2020, 14:32. FINDINGS: Image quality: Excellent. ABDOMEN: Lung bases: Mild dependent atelectasis can be seen. Heart size is normal. Solid organs: Liver is normal in size and enhancement. Diffuse fatty liver infiltration is noted. Gallbladder wall is not thickened. Biliary system is non dilated. Pancreas enhances normally. Spleen is normal in size and enhancement. No adrenal nodules. Kidneys demonstrate normal size and enhancement, without hydronephrosis. Along the lateral aspect of the left kidney, there is a simple appearing cyst seen that measures water density and 1.8 cm. Peritoneum and bowel: There is a moderate amount of pneumoperitoneum. There is focal wall thickening seen involving the sigmoid colon, with diverticula formation within this region. Surrounding inflammatory changes are seen. No loculated fluid collection is seen to suggest abscess. Mild dilatation of adjacent small bowel loops can be seen, with mildly thickened [place]. No transition point is seen to suggest bowel obstruction. Nodes and vessels: No retroperitoneal or mesenteric adenopathy by size cri teria. Aorta and inferior vena cava are normal in size. Miscellaneous: No ventral hernias. PELVIS: Genitourinary: The bladder is relatively decompressed. Moderate circumferential bladder wall thickening is seen. Miscellaneous: No inguinal hernias or adenopathy. Bones: No suspicious bony lesions. No vertebral body compression fractures. Moderate lower lumbar spine degenerative changes are seen. Milder degenerative changes are seen elsewhere. IMPRESSION: Perforated diverticulitis until proven otherwise. No loculated abscess can be seen. Adjacent to the sigmoid inflammatory change, there are thickened, dilated loops of small bowel, which are considered to be reactive to the diverticulitis. Moderate circumferential bladder wall thickening is seen, which is also attributed to the diverticulitis. When clinically appropriate (following adequate treatment of the patient's current clinical episode) a colonoscopy is recommended for further evaluation for a potential underlying mass (if not already recently done). Incidental note is made of: Fatty liver infiltration Simple appearing left renal cyst Lower lumbar spine degenerative change Note: Findings and recommendations discussed by telephone with OTIS Barahona at 2:32 p.m. [place] time on May 28, 2020. Dictated by: Karan Cifuentes M.D. on 05/28/2020 at 14:29 Approved by: Karan Cifuentes M.D. on 05/28/2020 at 14:34 [facility] Narrative Medical decision making narrative: The patient is a 69-year-old male who presents with a chief complaint of fever, lower abdominal pain and shortness of breath. He believes that this might be related to his recent coronavirus vaccination and or musculoskeletal pain. He has no leukocytosis on lab work, no elevated lactate, however his procalcitonin is elevated at 1.95. Given his positive D-dimer as well as significant pain to abdominal wall palpation, CT ang io taken of chest to rule out pulmonary embolism. This resulted negative. CT abdomen pelvis also obtained given his exam, elevated procalcitonin. This was noted to have perforated diverticulitis with associated pneumoperitoneum. I spoke with Dr. Weigle, general surgery at 15:50. The patient is coronavirus negative, has been NPO all day today, last sips of water at 10:00 a.m., last solid food last night. Zosyn ordered per her request. Surgery will be over to see patient. Discussed patient with Dr. Groves pending surgery evaluation. Did speak with Becca collado niece per his request at 16:00 <Joseph Groves MD - Last Filed: 05/28/20 18:48> Lab Data Labs: Lab Results 05/28/20 05/28/20 05/28/20 Range/Units 12:13 13:05 13:05 WBC 10.1 (4.5-11.0) X10^3/uL RBC 4.53 (4.5-5.9) X10^6/uL Hgb 15.6 (13.5-17.5) g/dL Hct 44.4 (41-53) % MCV 98.1 (80-100) fL MCH 34.5 H (26-34) PG MCHC 35.2 (30-36) % RDW 13.0 (11.6-14.8) % Plt Count 233 (150-400) X10^3/uL Neut % (Auto) 81.1 H (50-75) % Lymph % (Auto) 10.4 L (25-40) % [place] % (Auto) 7.2 (3-14) % Eos % (Auto) 0.8 L (2-4) % Baso % (Auto) 0.5 (0-2) % Neut # (Auto) 8200 H (5069-3441) /uL Lymph # (Auto) 1000 L (9538-4685) /uL [place] # (Auto) 700 (0-900) /uL Eos # (Auto) 100 (0-450) /uL Baso # (Auto) 0 (0-100) /uL PT 14.0 H (10.1-12.7) SECONDS INR 1.2 (0.9-1.3) APTT 31 (26.4-36.2) SECONDS D-Dimer (<230) ng/mL Sodium (137-145) mmol/L Potassium (3.4-5.1) mmol/L Chloride (98-107) mmol/L Carbon Dioxide (22-32) mmol/L BUN (9-20) mg/dL Creatinine (0.66-1.25) mg/dL Estimated GFR (>60) mL/min BUN/Creatinine Ratio (6-22) Glucose (80-110) mg/dL Lactate (0.7-2.1) mmol/L Calcium (8.4-10.2) mg/dL Total Bilirubin (0.2-1.3) mg/dL AST (17-59) IU/L ALT (<50) IU/L Alkaline Phosphatase (38-126) U/L Total Creatine Kinase (55-170) U/L CK-MB (CK-2) CK-MB (CK-2) Rel Index Troponin I (0.01-0.034) ng/mL Total Protein (6.3-8.2) g/dL Albumin (3.5-5.0) g/dL Globulin (1.7-4.1) g/dL Albumin/Globulin Ratio (1.0-2.8) Amylase (30-110) U/L Lipase (23-300) U/L Procalcitonin (<0.5) ng/mL Urine Color Urine Appearance Urine pH (4.5-8.0) Ur Specific [place] (1.000-1.035) Urine Protein (Negative) Urine Glucose (UA) (Negative) g/dL Urine Ketones (NEGATIVE) Urine Occult Blood (Negative) Urine Nitrate (Negative) Urine Bilirubin (NEGATIVE) Ur Bilirubin Confirm (Negative) Urine Urobilinogen (0.2) E.U./dL Ur Leukocyte Esterase (NEGATIVE) Urine RBC (0-5/HPF) Urine WBC (0-5/HPF) Ur Squamous Epith Cells (0-5/HPF) Amorphous Sediment Urine Bacteria (None) Urine Mucus (Negative) Ur Culture Indicated? U Opiates 300ng/mL cut (Negative) Ur Oxycodone Screen (Negative) Urine Methadone Screen (Negative) Ur Barbiturates Screen (Negative) U Tricyclic Antidepress (Negative) Ur Phencyclidine Scrn (Negative) Ur Amphetamines Screen (Negative) U Methamphetamines Scrn (Negative) Ur MDMA Scrn (Ecstasy) (Negative) U Benzodiazepines Scrn (Negative) Urine Cocaine Screen (Negative) U Marijuana (THC) Screen (Negative) Ethyl Alcohol ( - 10) mg/dL SARS-CoV-2 (PCR) Negative (Negative) 05/28/20 05/28/20 05/28/20 Range/Units 13:05 13:05 13:05 WBC (4.5-11.0) X10^3/uL RBC (4.5-5.9) X10^6/uL Hgb (13.5-17.5) g/dL Hct (41-53) % MCV (80-100) fL MCH (26-34) PG MCHC (30-36) % RDW (11.6-14.8) % Plt Count (150-400) X10^3/uL Neut % (Auto) (50-75) % Lymph % (Auto) (25-40) % [place] % (Auto) (3-14) % Eos % (Auto) (2-4) % Baso % (Auto) (0-2) % Neut # (Auto) (8754-1920) /uL Lymph # (Auto) (7094-4043) /uL [place] # (Auto) (0-900) /uL Eos # (Auto) (0-450) /uL Baso # (Auto) (0-100) /uL PT (10.1-12.7) SECONDS INR (0.9-1.3) APTT (26.4-36.2) SECONDS D-Dimer (<230) ng/mL Sodium 137 (137-145) mmol/L Potassium 3.8 (3.4-5.1) mmol/L Chloride 101 (98-107) mmol/L Carbon Dioxide 29 (22-32) mmol/L BUN 19 (9-20) mg/dL Creatinine 0.92 (0.66-1.25) mg/dL Estimated GFR > 60.0 (>60) mL/min BUN/Creatinine Ratio 20.7 (6-22) Glucose 121 H (80-110) mg/dL Lactate 1.2 (0.7-2.1) mmol/L Calcium 9.7 (8.4-10.2) mg/dL Total Bilirubin 2.2 H (0.2-1.3) mg/dL AST 27 (17-59) IU/L ALT 29 (<50) IU/L Alkaline Phosphatase 85 (38-126) U/L Total Creatine Kinase 77 (55-170) U/L CK-MB (CK-2) TNP CK-MB (CK-2) Rel Index TNP Troponin I < 0.012 (0.01-0.034) ng/mL Total Protein 8.5 H (6.3-8.2) g/dL Albumin 4.5 (3.5-5.0) g/dL Globulin 4.0 (1.7-4.1) g/dL Albumin/Globulin Ratio 1.1 (1.0-2.8) Amylase 54 (30-110) U/L Lipase 31 (23-300) U/L Procalcitonin 1.95 H (<0.5) ng/mL Urine Color Urine Appearance Urine pH (4.5-8.0) Ur Specific [place] (1.000-1.035) Urine Protein (Negative) Urine Glucose (UA) (Negative) g/dL Urine Ketones (NEGATIVE) Urine Occult Blood (Negative) Urine Nitrate (Negative) Urine Bilirubin (NEGATIVE) Ur Bilirubin Confirm (Negative) Urine Urobilinogen (0.2) E.U./dL Ur Leukocyte Esterase (NEGATIVE) Urine RBC (0-5/HPF) Urine WBC (0-5/HPF) Ur Squamous Epith Cells (0-5/HPF) Amorphous Sediment Urine Bacteria (None) Urine Mucus (Negative) Ur Culture Indicated? U Opiates 300ng/mL cut (Negative) Ur Oxycodone Screen (Negative) Urine Methadone Screen (Negative) Ur Barbiturates Screen (Negative) U Tricyclic Antidepress (Negative) Ur Phencyclidine Scrn (Negative) Ur Amphetamines Screen (Negative) U Methamphetamines Scrn (Negative) Ur MDMA Scrn (Ecstasy) (Negative) U Benzodiazepines Scrn (Negative) Urine Cocaine Screen (Negative) U Marijuana (THC) Screen (Negative) Ethyl Alcohol < 10 ( - 10) mg/dL SARS-CoV-2 (PCR) (Negative) 05/28/20 05/28/20 05/28/20 Range/Units 13:05 14:30 14:30 WBC (4.5-11.0) X10^3/uL RBC (4.5-5.9) X10^6/uL Hgb (13.5-17.5) g/dL Hct (41-53) % MCV (80-100) fL MCH (26-34) PG MCHC (30-36) % RDW (11.6-14.8) % Plt Count (150-400) X10^3/uL Neut % (Auto) (50-75) % Lymph % (Auto) (25-40) % [place] % (Auto) (3-14) % Eos % (Auto) (2-4) % Baso % (Auto) (0-2) % Neut # (Auto) (7500-5825) /uL Lymph # (Auto) (0348-1509) /uL [place] # (Auto) (0-900) /uL Eos # (Auto) (0-450) /uL Baso # (Auto) (0-100) /uL PT (10.1-12.7) SECONDS INR (0.9-1.3) APTT (26.4-36.2) SECONDS D-Dimer 2432 H (<230) ng/mL Sodium (137-145) mmol/L Potassium (3.4-5.1) mmol/L Chloride (98-107) mmol/L Carbon Dioxide (22-32) mmol/L BUN (9-20) mg/dL Creatinine (0.66-1.25) mg/dL Estimated GFR (>60) mL/min BUN/Creatinine Ratio (6-22) Glucose (80-110) mg/dL Lactate (0.7-2.1) mmol/L Calcium (8.4-10.2) mg/dL Total Bilirubin (0.2-1.3) mg/dL AST (17-59) IU/L ALT (<50) IU/L Alkaline Phosphatase (38-126) U/L Total Creatine Kinase (55-170) U/L CK-MB (CK-2) CK-MB (CK-2) Rel Index Troponin I (0.01-0.034) ng/mL Total Protein (6.3-8.2) g/dL Albumin (3.5-5.0) g/dL Globulin (1.7-4.1) g/dL Albumin/Globulin Ratio (1.0-2.8) Amylase (30-110) U/L Lipase (23-300) U/L Procalcitonin (<0.5) ng/mL Urine Color Other Urine Appearance Slightly cloudy Urine pH 5.5 (4.5-8.0) Ur Specific [place] 1.025 (1.000-1.035) Urine Protein 2+ H (Negative) Urine Glucose (UA) Trace H (Negative) g/dL Urine Ketones 3+ H (NEGATIVE) Urine Occult Blood Negative (Negative) Urine Nitrate Negative (Negative) Urine Bilirubin 2+ H (NEGATIVE) Ur Bilirubin Confirm Negative (Negative) Urine Urobilinogen 1.0 (0.2) E.U./dL Ur Leukocyte Esterase Trace H (NEGATIVE) Urine RBC None seen (0-5/HPF) Urine WBC 5-10/hpf H (0-5/HPF) Ur Squamous Epith Cells 1-5 /hpf (0-5/HPF) Amorphous Sediment 1+ Urine Bacteria Few (2-10) H (None) Urine Mucus 3+ H (Negative) Ur Culture Indicated? Specimen cultured U Opiates 300ng/mL cut Negative (Negative) Ur Oxycodone Screen Negative (Negative) Urine Methadone Screen Negative (Negative) Ur Barbiturates Screen Negative (Negative) U Tricyclic Antidepress Negative (Negative) Ur Phencyclidine Scrn Negative (Negative) Ur Amphetamines Screen Negative (Negative) U Methamphetamines Scrn Negative (Negative) Ur MDMA Scrn (Ecstasy) Negative (Negative) U Benzodiazepines Scrn Negative (Negative) Urine Cocaine Screen Negative (Negative) U Marijuana (THC) Screen Positive H (Negative) Ethyl Alcohol ( - 10) mg/dL SARS-CoV-2 (PCR) (Negative) Discharge Plan Departure Admit Date/Time: 05/28/20 17:11 Admit Provider: Ijeoma Castelan <Joseph Groves MD - Last Filed: 05/28/20 18:48> Cosign ED Attending Cosignature Attestation: I was immediately available in the department for consultation. This documentation has been reviewed and I agree with assessment and plan. Supervised by Joseph Groves MD
[2020-05-28] MEDS: PIPERACILLIN/TAZO 4.5 GM in SODIUM CHLORIDE 0.9% 100 ML 200 ML IV (16:14)
--- NOTE | 2020-05-28 17:09 | PM.HP.1 ---
History of Present Illness History of Present Illness Date Patient Seen: 05/28/20 Time Patient Seen: 17:09 Chief complaint: Symptoms Related To COVID, SOB, Abd Pain Narrative: This is a 69-year-old man with about 5 days of lower abdominal pain. 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 Since then he says that he has been feeling short of breath and having upper abdominal pain as well as lower. His worst pain is in the left lower abdomen. He reports on and off fevers up to 102 for the past 2-3 days. He reports generally feeling run down. Denies any dysuria, pyuria, air in the urine, or debris in the urine. He reports he has not had a bowel movement in 3 days. He came into the ER today, had a CT scan which showed free air, and some inflamed looking diverticula in the sigmoid colon. He reports his only significant medical history includes bilateral knee replacements. He denies any prior abdominal surgery. He says he had a colonoscopy over 10 years ago, and was told that he needed to come back for another 1 in 10 years. He denies any known episodes of diverticulitis in the past. He denies any heart or lung problems. He denies being a cigarette smoker. He says he uses marijuana from time to time, and drinks about 3-4 drinks per night. He says his last drink was Friday. He says he does not tend to get the shakes if he goes without a drink. He says he sometimes goes with the drink for a month when he is on a boat. ROS: General: Reports fevers, fatigue, malaise HEENT: Denies sinus pain, ear pain, sore throat, difficulty swallowing, dizziness. RESPIRATORY: See HPI CARDIOVASCULAR: Denies chest pain, palpitations, orthopnea, edema, GASTROINTESTINAL: See HPI : Denies dysuria, frequency, incontinence, hematuria, urinary retention. MUSCULOSKELETAL: denies weakness, joint pain, or bony pain SKIN: Denies rash, skin lesions, or other NEUROLOGIC: Denies weakness, headache, numbness, change in speech, confusion, seizures, incoordination. PSYCHIATRIC: No concerning psychosocial issues. PE: GENERAL: Alert, in no acute distress. Appears stated age. Answers questions promptly and appropriately. Vital signs noted. HENT: Normocephalic, atraumatic. Hearing intact. EYES: Conjunctiva pink, sclera white, no periorbital swelling. CARDIOVASCULAR: Regular rate. No pedal edema. RESPIRATORY: Non-tachypneic, breathing comfortably on room air. GASTROINTESTINAL: Abdomen somewhat firm, distended, focally tender to palpation in the left lower quadrant, vaguely tender and tympanic in the upper abdomen GENITALURINARY: No flank tenderness. MUSCULOSKELETAL: Equal tone and mass bilaterally. SKIN: Warm, dry, soft, appropriate color for ethnicity. No other lesions, rashes, or wounds. NEURO: Alert and Oriented X 3. No gross sensory deficits, or cognitive issues. PSYCH: A little bit hypervigilant, with a hint of pressured speech. Otherwise appropriate affect and mood. Patient History Family & Social History Safety & Behavioral: Feels Safe in Current Yes Environment Tobacco & Substance use: Smoking Status Former smoker alcohol intake frequency 3 or more drinks per day Substance Use Type marijuana Meds Home Medications and Allergies Home Medications Medication Instructions Recorded Confirmed Type aspirin 325 mg PO QDAY #0 07/13/16 History cephalexin [Keflex] 500 mg PO Q6H #40 cap 07/13/16 Rx multivitamin [Multiple Vitamins] 1 tab PO QDAY #0 07/13/16 History oxycodone-acetaminophen [Percocet] 1 tab PO Q4HP PRN #15 tab 07/13/16 Rx Allergies Allergy/AdvReac Type Severity Reaction Status Date / Time No Known Drug Allergies Allergy Verified 05/28/20 12:18 Exam Vital Signs (past 8 hours): - 05/28/20 12:18 05/28/20 12:30 05/28/20 13:00 Temperature 98.6 F Pulse Rate 102 H 96 H 95 H Respiratory Rate 24 Blood Pressure 156/98 H 136/88 157/103 H Pulse Oximetry 97 95 95 05/28/20 13:30 05/28/20 14:00 05/28/20 14:01 Temperature Pulse Rate 91 H 83 86 Respiratory Rate Blood Pressure 100/53 L Pulse Oximetry 93 94 95 05/28/20 14:30 05/28/20 14:31 05/28/20 14:48 Temperature Pulse Rate 102 H 91 H 101 H Respiratory Rate Blood Pressure 149/89 H 161/95 H Pulse Oximetry 94 95 95 05/28/20 15:00 05/28/20 15:30 Temperature Pulse Rate 99 H 106 H Respiratory Rate Blood Pressure 144/80 H 134/86 Pulse Oximetry 95 94 Oxygen Delivery Method Room Air Objective Imaging CT scan - abdomen: Radiologist's impression: [address] [id number] Scan ReportSigned Patient: Maxim Childs RMR#: [id number]: [id number]/Sex: 69 / MDate of Service: 05/28/20Loc: EDAccession Number: [id number] Procedure: CT abdomen pelvis w con Ordering Provider: Julia Luu DEVOPS ENGINEER-BC PROCEDURE: CT ABDOMEN PELVIS W CON INDICATIONS: abd pain, fever TECHNIQUE: After the administration of intravenous contrast, 5 mm thick sections acquired from the diaphragm to the symphysis. 5 mm coronal and sagittal reformats were acquired. For radiation dose reduction, the following was used: automated exposure control, adjustment of mA and/or kV according to patient size. COMPARISON: [facility], CT, CT ANGIO CHEST PE PROTOCOL, 05/28/2020, 14:32. FINDINGS: Image quality: Excellent. ABDOMEN: Lung bases: Mild dependent atelectasis can be seen. Heart size is normal. Solid organs: Liver is normal in size and enhancement. Diffuse fatty liver infiltration is noted. Gallbladder wall is not thickened. Biliary system is non dilated. Pancreas enhances normally. Spleen is normal in size and enhancement. No adrenal nodules. Kidneys demonstrate normal size and enhancement, without hydronephrosis. Along the lateral aspect of the left kidney, there is a simple appearing cyst seen that measures water density and 1.8 cm. Peritoneum and bowel: There is a moderate amount of pneumoperitoneum. There is focal wall thickening seen involving the sigmoid colon, with diverticula formation within this region. Surrounding inflammatory changes are seen. No loculated fluid collection is seen to suggest abscess. Mild dilatation of adjacent small bowel loops can be seen, with mildly thickened [place]. No transition point is seen to suggest bowel obstruction. Nodes and vessels: No retroperitoneal or mesenteric adenopathy by size criteria. Aorta and inferior vena cava are normal in size. Miscellaneous: No ventral hernias. PELVIS: Genitourinary: The bladder is relatively decompressed. Moderate circumferential bladder wall thickening is seen. Miscellaneous: No inguinal hernias or adenopathy. Bones: No suspicious bony lesions. No vertebral body compression fractures. Moderate lower lumbar spine degenerative changes are seen. Milder degenerative changes are seen elsewhere. IMPRESSION: Perforated diverticulitis until proven otherwise. No loculated abscess can be seen. Adjacent to the sigmoid inflammatory change, there are thickened, dilated loops of small bowel, which are considered to be reactive to the diverticulitis. Moderate circumferential bladder wall thickening is seen, which is also attributed to the diverticulitis. When clinically appropriate (following adequate treatment of the patient's current clinical episode) a colonoscopy is recommended for further evaluation for a potential underlying mass (if not already recently done). Incidental note is made of: Fatty liver infiltration Simple appearing left renal cyst Lower lumbar spine degenerative change Note: Findings and recommendations discussed by telephone with OTIS Barahona at 2:32 p.m. [place] time on May 28, 2020. Labs Result Diagrams: 05/28/20 13:05 05/28/20 13:05 Labs: Laboratory Results - last 24 hr 05/28/20 05/28/20 05/28/20 12:13 13:05 13:05 WBC 10.1 RBC 4.53 Hgb 15.6 Hct 44.4 MCV 98.1 MCH 34.5 H MCHC 35.2 RDW 13.0 Plt Count 233 Neut % (Auto) 81.1 H Lymph % (Auto) 10.4 L [place] % (Auto) 7.2 Eos % (Auto) 0.8 L Baso % (Auto) 0.5 Neut # (Auto) 8200 H Lymph # (Auto) 1000 L [place] # (Auto) 700 Eos # (Auto) 100 Baso # (Auto) 0 PT 14.0 H INR 1.2 APTT 31 D-Dimer Sodium Potassium Chloride Carbon Dioxide BUN Creatinine Estimated GFR BUN/Creatinine Ratio Glucose Lactate Calcium Total Bilirubin AST ALT Alkaline Phosphatase Total Creatine Kinase CK-MB (CK-2) CK-MB (CK-2) Rel Index Troponin I Total Protein Albumin Globulin Albumin/Globulin Ratio Amylase Lipase Procalcitonin Urine Color Urine Appearance Urine pH Ur Specific [place] Urine Protein Urine Glucose (UA) Urine Ketones Urine Occult Blood Urine Nitrate Urine Bilirubin Ur Bilirubin Confirm Urine Urobilinogen Ur Leukocyte Esterase Urine RBC Urine WBC Ur Squamous Epith Cells Amorphous Sediment Urine Bacteria Urine Mucus Ur Culture Indicated? U Opiates 300ng/mL cut Ur Oxycodone Screen Urine Methadone Screen Ur Barbiturates Screen U Tricyclic Antidepress Ur Phencyclidine Scrn Ur Amphetamines Screen U Methamphetamines Scrn Ur MDMA Scrn (Ecstasy) U Benzodiazepines Scrn Urine Cocaine Screen U Marijuana (THC) Screen Ethyl Alcohol SARS-CoV-2 (PCR) Negative 05/28/20 05/28/20 05/28/20 13:05 13:05 13:05 WBC RBC Hgb Hct MCV MCH MCHC RDW Plt Count Neut % (Auto) Lymph % (Auto) [place] % (Auto) Eos % (Auto) Baso % (Auto) Neut # (Auto) Lymph # (Auto) [place] # (Auto) Eos # (Auto) Baso # (Auto) PT INR APTT D-Dimer Sodium 137 Potassium 3.8 Chloride 101 Carbon Dioxide 29 BUN 19 Creatinine 0.92 Estimated GFR > 60.0 BUN/Creatinine Ratio 20.7 Glucose 121 H Lactate 1.2 Calcium 9.7 Total Bilirubin 2.2 H AST 27 ALT 29 Alkaline Phosphatase 85 Total Creatine Kinase 77 CK-MB (CK-2) TNP CK-MB (CK-2) Rel Index TNP Troponin I < 0.012 Total Protein 8.5 H Albumin 4.5 Globulin 4.0 Albumin/Globulin Ratio 1.1 Amylase 54 Lipase 31 Procalcitonin 1.95 H Urine Color Urine Appearance Urine pH Ur Specific [place] Urine Protein Urine Glucose (UA) Urine Ketones Urine Occult Blood Urine Nitrate Urine Bilirubin Ur Bilirubin Confirm Urine Urobilinogen Ur Leukocyte Esterase Urine RBC Urine WBC Ur Squamous Epith Cells Amorphous Sediment Urine Bacteria Urine Mucus Ur Culture Indicated? U Opiates 300ng/mL cut Ur Oxycodone Screen Urine Methadone Screen Ur Barbiturates Screen U Tricyclic Antidepress Ur Phencyclidine Scrn Ur Amphetamines Screen U Methamphetamines Scrn Ur MDMA Scrn (Ecstasy) U Benzodiazepines Scrn Urine Cocaine Screen U Marijuana (THC) Screen Ethyl Alcohol < 10 SARS-CoV-2 (PCR) 05/28/20 05/28/20 05/28/20 13:05 14:30 14:30 WBC RBC Hgb Hct MCV MCH MCHC RDW Plt Count Neut % (Auto) Lymph % (Auto) [place] % (Auto) Eos % (Auto) Baso % (Auto) Neut # (Auto) Lymph # (Auto) [place] # (Auto) Eos # (Auto) Baso # (Auto) PT INR APTT D-Dimer 2432 H Sodium Potassium Chloride Carbon Dioxide BUN Creatinine Estimated GFR BUN/Creatinine Ratio Glucose Lactate Calcium Total Bilirubin AST ALT Alkaline Phosphatase Total Creatine Kinase CK-MB (CK-2) CK-MB (CK-2) Rel Index Troponin I Total Protein Albumin Globulin Albumin/Globulin Ratio Amylase Lipase Procalcitonin Urine Color Other Urine Appearance Slightly cloudy Urine pH 5.5 Ur Specific [place] 1.025 Urine Protein 2+ H Urine Glucose (UA) Trace H Urine Ketones 3+ H Urine Occult Blood Negative Urine Nitrate Negative Urine Bilirubin 2+ H Ur Bilirubin Confirm Negative Urine Urobilinogen 1.0 Ur Leukocyte Esterase Trace H Urine RBC None seen Urine WBC 5-10/hpf H Ur Squamous Epith Cells 1-5 /hpf Amorphous Sediment 1+ Urine Bacteria Few (2-10) H Urine Mucus 3+ H Ur Culture Indicated? Specimen cultured U Opiates 300ng/mL cut Negative Ur Oxycodone Screen Negative Urine Methadone Screen Negative Ur Barbiturates Screen Negative U Tricyclic Antidepress Negative Ur Phencyclidine Scrn Negative Ur Amphetamines Screen Negative U Methamphetamines Scrn Negative Ur MDMA Scrn (Ecstasy) Negative U Benzodiazepines Scrn Negative Urine Cocaine Screen Negative U Marijuana (THC) Screen Positive H Ethyl Alcohol SARS-CoV-2 (PCR) Assessment & Plan Assessment and plan (1) Free intraperitoneal air: Status: Acute (2) Diverticulosis: Status: Acute (3) Diverticulitis: Status: Acute (4) Obstipation: Status: Acute Assessment & Plan narrative: I had a long discussion with the patient regarding his symptoms, and CT scan findings. He clearly has free air on the CT scan, although no visible evidence of free fluid over stool in the abdomen. I told him that we would need to take a look, and assess things with a camera, laparoscopically at 1st. Depending on how it looks, we may need to do a colon resection, and he may end up with an end colostomy, or diverting ileostomy. I explained the concept of each, and the fact that either 1 would be intended to be temporary. Explained the risks of surgery including bleeding, infection, damage to nearby structures, need for additional procedures, need for open surgery, need for in into or diverting colostomy, need for future surgery for colostomy or ileostomy takedown. The patient desires to proceed with surgery. Plan: NPO, IV fluids, IV antibiotics, schedule for emergency diagnostic laparoscopy, possible bowel resection, possible laparotomy, possible ileostomy or colostomy COVID-19 COVID-19 status: Negative Result date/Date tested (Pos, Neg/Pending): 05/28/20 Time Spent With Patient Time with patient: 25 - 35 minutes Quality VTE Deep Vein Thrombosis/Pulmonary Embolism Present on Admission: No
--- NOTE | 2020-05-28 17:38 | SUR.HOLD ---
Notified Anesthesiology of oral temp of 103.1..
[2020-05-28] MEDS: LACTATED RINGERS 1,000 ML 120 ML IV ×3 (18:00→21:58)
--- NOTE | 2020-05-28 18:56 | SUR.OPER ---
Supine on padded OR bed, head on pillow, arms padded and tucked at sides, legs uncrossed, safety belt at thigh, tape over blanket over lower legs .
[2020-05-28] MEDS: BUPIVACAINE 0.5% W/ EPI (PF) 30 ML VIAL INJ ×2 (19:32→21:09)
[2020-05-28] MEDS: LACTATED RINGERS 1,000 ML 100 ML IV ×2 (19:53→22:58)
[2020-05-28] MEDS: METHYLENE BLUE 50 MG/10 ML VIAL 100 MG INJ (20:39)
[2020-05-28] MEDS: BUPIVACAINE LIPOSOME 266 MG/20 ML VIAL INJ (21:10)
--- NOTE | 2020-05-28 22:11 | PM.OP.1 ---
Operative Date/Time/Diagnoses Date of procedure: 05/28/20 Time of procedure: 22:11 Pre-op diagnosis: Free air, abdominal pain, diverticulitis, obstipation x 3 days Post-op diagnosis: other (Perforated and obstructed sigmoid colon, with inflammatory appearing sigmoid mass/possible neoplasm; fecal peritonitis) Procedure & Clinicians Procedure: 1) Diagnostic laparoscopy 2) Open Manuel's procedure (sigmoid colectomy, end colostomy) 3) Washout of fecal peritonitis Same procedure as scheduled: Yes Indications: This is a 69 yo man who came into the ER with several days of worsening abdominal pain and was found to have free air with unclear source on CT scan. Surgeon: Ijeoma Castelan Click Yes if Unassisted: Yes Anesthesia Type: General Operative Notes Findings: Liquid stool and purulent fluid in all four quadrants of the abomen; thickened perforated sigmoid colon consistent with possible diverticulitis or possible neoplam; sigmoid colon densely adherent to abdominal wall Specimen(s): other (Sigmoid colon) Applied: catheter (guido) and drain(s) (DAYTON, NGT, ostomy appliance) Estimated Blood Loss (mL): 500 Blood products transfused: none Procedure in detail: The patient was brought into the operating room and placed supine on the OR table. Sequential compression devices were placed on both legs and turned on. Appropriate perioperative antibiotics were given prior to the start of surgery. General anesthesia was induced the patient was intubated. Guido catheter was placed sterilely in the bladder. The abdomen was prepped and draped in sterile fashion. Surgical time-out was conducted. Local anesthetic was injected under the skin just superior to the umbilicus and a 5 mm vertical incision was made at this site. The umbilical stalk was grasped with a Hunter and elevated. A Veress needle was passed through the fascia into proper position. The position was tested with a saline drop test which was appropriate for intra-abdominal Veress needle placement. The abdomen was then insufflated in the usual fashion. Once insufflated to 15 mm Hg the Veress needle was removed and a 5 mm optical trocar was placed under direct vision using a 5 mm 30 degree scope. Once the camera was inside the abdomen I took a look around. There was no injury from port placement. On first look there were many loops of dilated small bowel seen, and purulent fluid in the left and right gutters and in the pelvis. Two additional ports were placed in a similar fashion in the right mid abdomen, and left mid abdomen. Attention was then turned to the pelvis and the patient was placed in steep Trendelenburg position. With gentle pressure, began to push down the dilated loops of small bowel that were adherent to the lower abdominal wall. Relatively quickly, green stool began to well up. This was clearly our source. At this point, a vertical midline incision was made about 7cm in length and a hand port was placed. Dissection was carried down to the fascia, and the fascia was opened vertically for about 7 cm in order to place a Gelport hand port. A GelPort hand port was placed. I then used my right hand to assist with dissection. I was able to use blunt dissection with finger fracture technique to free the adhesed small bowel loops from the abdominal wall, but ultimately, the sigmoid colon was so densely attached to the abdominal wall anteriorly I could not take it down by this technique. At this point, the decision was made to open. The midline incision was lengthened to 25cm vertically and the Bookwalter was placed. We ran the entire small bowel and found no injuries to the small bowel although much of it was caked with purulent adhesions and stool. I then turned my attention back to the sigmoid colon. It was hard and thickened, and a perforation was seen just proximal to the obstruction and stool was leaking out. Using cautery and LigaSure, I was able to gradually take this down from the abdominal wall, taking some of the fascia with it. I dissected out the involved sigmoid colon and divided it proximal and distal to the perforated and thickened portion of colon using blue load Endo-HUMERA stapler proximal in using a green load contour stapler distal. The involved sigmoid colon was marked with a stitch proximal, and then passed off the table for pathology. There was a remaining defect in the lower anterior abdominal wall where the sigmoid colon was excised. We filled the bladder with methylene blue and saline to test for a leak. Once the bladder was tense, no fluid was seen leaking out, and the bladder was again allowed to empty into the guido bag. The mesentery of the sigmoid was firm and thickened and friable. There were several areas of bleeding from the mesentery which were controlled with sutures and Ligasure. We then got hemostasis using 3-0 silk suture and LigaSure. We then washed out the entire abdomen with 3 L of warm saline, washing out all 4 quadrants. I placed an 0 Prolene suture at the apex of the rectal stump. I then turned my attention to creating an end colostomy. The descending colon was freed from its lateral attachments, taking down the white line of toldt along the descending colon, adequate for end colostomy. A circular incision in the skin was then made using cut cautery. It was then then carried down to the fascia, and the fascia was opened in a cruciate fashion in the anterior fascia, and the muscle was split deep to that using a hemostat, and then the peritoneum was opened with cautery. I was able to fit 2 fingers in the opening, and I brought up the stapled end of the descending colon through that site. I then placed a 19 round Gregg drain in the right lower quadrant with the drain down in the pelvis. This was sutured in place with a 2 0 nylon suture. The fascia was then closed at the midline with running 0 PDS, and interrupted 0 Vicryl [id number]. And the skin was closed with skin jeanne. Each port site was then closed with skin jeanne. Each of the wounds was dressed with a sterile dressing. The colostomy was then brooked in the usual fashion, and an ostomy appliance was placed. The specimen was opened on the back table and was found to be thickened stenotic colon consistent with chronic diverticulitis, but could not rule out neoplasm. The Guido catheter was left in place. Ostomy appliance was placed. Needle sponge and instrument counts were correct x2 at the end of the procedure. The patient tolerated the procedure well. Patient was awakened from anesthesia and extubated. He was transferred to the postanesthesia care unit in stable condition. Complications: none Post-operative Condition: stable Disposition: PACU
--- NOTE | 2020-05-28 22:49 | SUR.PHASEI ---
Late entry (2225) Patient presents to PACU with NG tube to right nare; oral airway, guido catheter and Gregg drain. Placed patient on pvc monitor; simple face mask at 6 liters per minute, and NG tube to low intermittent suction. Patient not responsive to any actions taken by nursing staff. Suctioned out oral airway. No gag reflex appreciated at this time. Dressings to abdominal wall clean, dry and intact. Ostomy noted.
--- NOTE | 2020-05-28 22:51 | SUR.PHASEI ---
Patient remains stable but still unresponsive. VSS. Titrated oxygen down from 6 liters per minute to 4 liters per minute. .
[2020-05-28] MEDS: HYDROMORPHONE 2 MG INJ IV (22:54)
[2020-05-29] VITALS (10 sets, daily range): BP systolic 110–136; BP diastolic 59–97; PULSE 76–92; RESP 16–20; TEMP 36.9–37.8; O2SAT 92–96; BMI 30.7
[2020-05-29] MEDS: LACTATED RINGERS 1,000 ML 100 ML IV ×2 (00:51→11:47)
--- NOTE | 2020-05-29 02:19 | PC.NURSE ---
Addendum entered by Tawanna Onofre R.N. 05/29/20 06:21: Spoke with Dr. Castelan. There were transfer orders in the chart that I was not aware needed to be entered by clicking the transfer orders button. Orders are now transferred. Thankfully, all care orders were already in place: NG tube was set to low, intermittent suction; SCDs were in place; guido in place; LR was infusing at 100mL/h. Addendum entered by Tawanna Onofre R.N. 05/29/20 03:41: Note: There is no antibiotic scheduled in the [facility] at this time. Addendum entered by Tawanna Onofre R.N. 05/29/20 03:31: 0130 CIWA score was a 4 for moderate tremor in bilateral upper extremities; possibly r/t anesthesia? baseline? Unclear. Will reassess when patient is more awake. Original Note: 0050 Pt arrives from PACU via surgical bed. He is alert but lethargic; s/p anesthesia. He is on room air. He has a right hand PIV that is saline-locked and a left antecubital, saline-locked. He has an indwelling catheter in place and an NG tube in the left nare. He also has a DAYTON drain with sangineous drainage. His ostomy is beefy, red and moist; skin around is intact; drainage is sangineous. No s/sx of distress. Pt oriented to room and unit. Bed alarm is on, call-light within reach.
[2020-05-29 06:40] LABS: Add Manual Diff / Slide Review NO; Basophils Absolute Auto 0 /uL (0-100); Basophils Percent Auto 0.2 % (0-2); Eosinophils Absolute Auto 0 /uL (0-450); Hematocrit 36.5 % (41-53); Hemoglobin 12.6 g/dL (13.5-17.5); Lymphocytes Absolute Auto 400 /uL (1100-4500); Lymphocytes Percent Auto 3.5 % (25-40); Mean Corpuscular HGB Conc 34.4 % (30-36); Mean Corpuscular Volume 98.8 fL (80-100); Monocytes Absolute Auto 600 /uL (0-900); Monocytes Percent Auto 5.9 % (3-14); Neutrophils Absolute Auto 9900 /uL (1500-7000); Neutrophils Percent Auto 90.4 % (50-75); Platelet Count 196 X10^3/uL (150-400); Red Cell Distribution Width 12.9 % (11.6-14.8)
[2020-05-29 06:58] LABS: BUN Creatinine Ratio 22.2 (6-22); Blood Urea Nitrogen 20 mg/dL (9-20); Carbon Dioxide 25 mmol/L (22-32); Chloride 104 mmol/L (98-107); Estimated Glomerular Filt Rate > 60.0 mL/min (>60); Glucose 159 mg/dL (80-110); HEMOLYSIS < 15 (0-50); Magnesium 1.9 mg/dL (1.6-2.3); Phosphorous 2.9 mg/dL (2.3-3.7); Potassium 4.1 mmol/L (3.4-5.1); Sodium 135 mmol/L (137-145)
[2020-05-29] MEDS: HYDROMORPHONE 1 MG INJ 0.5 MG IV (07:28)
[2020-05-29] MEDS: PIPERACILLIN-TAZO 3.375 GM/50 ML FROZ.PIGGY IV ×3 (07:29→18:05)
[2020-05-29] MEDS: ACETAMINOPHEN 325 MG TABLET 650 MG PO ×3 (08:39→18:01)
[2020-05-29] MEDS: ENOXAPARIN 40 MG/0.4 ML SYRINGE SUBCUT (08:43)
[2020-05-29] MEDS: GABAPENTIN 300 MG CAPSULE PO ×2 (08:43→22:12)
--- NOTE | 2020-05-29 08:44 | CM.DANOTE ---
Addendum entered by Petra Rucker R.N. 05/29/20 08:52: Confirmed with Lisa at [facility] that they do not go to [facility]. Original Note: DCP: Case received, EMR reviewed and met with patient. Introduced self and role. Was able to obtain information from patient regarding his baseline activity status and living situation prior to hospitalization. DCP assessment completed with information currently available. Patient is a 69 year old male who admitted yesterday afternoon to the care of the hospitalist/surgical team. PCP: Dr. King. Payer: confirmed: Medicare/[employer]. Patient came to the hospital via private vehicle secondary to having abdominal discomfort as well as shortness of breath. Patient was diagnosed with perforated diverticulitis/perforated signoid colon. Patient has surgical procedure yesterday, a diagnostic laparoscopy. Patient currently has ostomy, and has NG tube as well. Met with patient in his room. He is alert and oriented. 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 He is away during fishing season, has his own boat, for this is also the mode of transportation on [facility], which is where he lives. He understands that he will most likely go home with an ostomy. Stated, they will try to reverse it, but it will be a new thing that I will need to manage. Patient also has a cousin named Lindsey Redd who also lives on [place]. P: DCP to continue to follow and be available for any resources needed. Patient will most likely not qualify for home health, since he is not home bound, and [facility] most likely does not go to [facility]. Petra Rucker RN/Compliance Testing Analyst
[2020-05-29] MEDS: PANTOPRAZOLE 40 MG VIAL IV (09:12)
[2020-05-29] MEDS: KETOROLAC 30 MG/ML VIAL IV (13:16)
--- NOTE | 2020-05-29 14:15 | PC.NURSE ---
Patient denies nausea and has minimal abdominal pain, bowel tones tympanic in all quadrants. Patient mostly complains of throat pain and soreness. Patient has had 550 cc of fluid out of NG tube. Abdominal dressing is intact with some shadow drainage that has been outlined on this shift. Gregg drain drainage 75cc, Ostomy is red/beefy and has serous drainage. Patient pain control with toradol Q6 PRN and dilaudid 0.5 PRN. Patient's throat is sore, could benefit from some lozenges.
[2020-05-29] MEDS: BENZOCAINE/MENTHOL 1 LOZ PKT 1 EACH PO ×2 (15:35→18:02)
--- NOTE | 2020-05-29 18:48 | PM.PNPO.1 ---
Subjective Subjective Date Patient Seen: 05/29/20 Time Patient Seen: 18:49 Interval history: The patient was seen earlier today and again this evening. Seems to be pretty comfortable. Having some pain and generalized discomfort but overall given the abnormality what was accomplished seems to be feeling okay. Little anxious and need something for sleep. Looked at his ostomy bag for the 1st time this evening and was pleased to find out it was not is because he had imagined it. Exam Vital Signs (past 8 hours): - 05/29/20 11:30 05/29/20 15:10 Temperature 98.7 F 99.9 F H Pulse Rate 78 76 Respiratory Rate 20 19 Blood Pressure 116/59 L 126/88 Pulse Oximetry 93 93 Oxygen Delivery Method Room Air Oxygen Flow Rate 0 Narrative Exam Narrative: Patient's eyes are nonicteric. Lungs excellent effort drawing about 2000 cc on his incentive spirometer. He does cut off at that point because of pain in his abdomen. Heart regular rate and rhythm. His abdomen is distended and protuberant. Soft. Ostomy is edematous but bright pink and healthy. Objective Labs Result Diagrams: 05/29/20 06:31 05/29/20 06:31 Labs: Laboratory Results - last 24 hr 05/29/20 05/29/20 06:31 06:31 WBC 11.0 RBC 3.70 L Hgb 12.6 L Hct 36.5 L MCV 98.8 MCH 34.0 MCHC 34.4 RDW 12.9 Plt Count 196 Neut % (Auto) 90.4 H Lymph % (Auto) 3.5 L [place] % (Auto) 5.9 Eos % (Auto) 0.0 L Baso % (Auto) 0.2 Neut # (Auto) 9900 H Lymph # (Auto) 400 L [place] # (Auto) 600 Eos # (Auto) 0 Baso # (Auto) 0 Sodium 135 L Potassium 4.1 Chloride 104 Carbon Dioxide 25 BUN 20 Creatinine 0.90 Estimated GFR > 60.0 BUN/Creatinine Ratio 22.2 H Glucose 159 H Calcium 8.0 L Phosphorus 2.9 Magnesium 1.9 PFSH Social History household members: none Smoking Status: Former smoker Assessment & Plan Post-op Postoperative Procedures: Procedures Operation Date: 05/28/20 18:00 Actual Procedures Side Surgeon p Laparoscopy, Diagnostic, GEN; converted to laparotomy w/bowel resection and colostomy Ijeoma Castelan MD Postoperative status narrative: Postop diversion, resection of a perforated colon and Manuel's procedure. Doing pretty much as 1 would expect at this point. Encouraged him to work on breathing. He has been out of bed walking in the room. NG continues. The drainage from his drain is a bit cloudy. Mostly serous. Slight blood tinge. Postoperative plan narrative: Continue broad-spectrum antibiotics. Mobilize. Labs in the morning. Continue IV fluids. Quality VTE Deep Vein Thrombosis/Pulmonary Embolism Present on Admission: No
[2020-05-29] MEDS: LORazepam 2 MG/ML INJ 1 MG IV (22:12)
--- NOTE | 2020-05-29 23:26 | PC.NURSE ---
Pt reports sore throat, and mild pain to abdomen; Bulky drsg c/d/i; BTs hypoactive; Colostomy draining liquid, pink; Gregg drain Serosanguinous; this RN instructed patient regarding disease process, and surgery, encouraged deep breathing with pillow across abdomen, IS 1500; IV ativan at bedtime for mild anxiety; CIWA 0
[2020-05-30] VITALS (8 sets, daily range): BP systolic 127–153; BP diastolic 69–93; PULSE 59–76; RESP 16–20; TEMP 36.5–37.7; O2SAT 92–96
[2020-05-30] MEDS: ACETAMINOPHEN 325 MG TABLET 650 MG PO ×4 (00:16→17:54)
[2020-05-30] MEDS: PIPERACILLIN-TAZO 3.375 GM/50 ML FROZ.PIGGY IV ×4 (00:16→17:54)
[2020-05-30] MEDS: LACTATED RINGERS 1,000 ML 100 ML IV ×3 (00:19→22:02)
[2020-05-30] MEDS: BENZOCAINE/MENTHOL 1 LOZ PKT 1 EACH PO (00:31)
--- NOTE | 2020-05-30 01:44 | PC.NURSE ---
Addendum entered by Shamika Bueno R.N. 05/30/20 06:04: Slept well. States pain only 3/10 this morning but after coughing states pain now up to 6/10 so medicated with Toradol. Original Note: 0046: patient is alert and oriented. Breath sounds CTA with RA sat of 92%. Complains of sore throat due to NG tube; medicated with Cepacol lozenge. HRR w/telemetry reading of SR w/1st degree AVB. Denies nausea. NG patent to intermittent suction; clamped for 30 minutes after meds. Is able to take ice chips and sips of water with meds. BT are present but hypoactive but has not passed flatus as yet. Abdomen is soft but distended. Midline dressing with old drainage within previously drawn outline. Bandaid dressing is CDI. Gregg drain is intact and compressed with serosanguinous drainage in bulb. Ostomy with beefy red stoma and small amount blood tinged liquid in bag. Indwelling catheter is patent; urine is dark noemí. Able to turn himself in bed. Gait not assessed but reports he is weak when up so using a walker and 1 assist. Wearing bilateral calf SCD's. Denies pain except when being assisted to be repositioned higher in the bed. CIWA score is 1 as patient uncertain of date. Fall risk score is high and bed alarm is activated.
[2020-05-30] MEDS: KETOROLAC 30 MG/ML VIAL IV (06:00)
[2020-05-30 06:23] LABS: Add Manual Diff / Slide Review NO; Basophils Absolute Auto 0 /uL (0-100); Basophils Percent Auto 0.1 % (0-2); Eosinophils Absolute Auto 0 /uL (0-450); Eosinophils Percent Auto 0.1 % (2-4); Hematocrit 31.4 % (41-53); Hemoglobin 10.7 g/dL (13.5-17.5); Lymphocytes Absolute Auto 700 /uL (1100-4500); Lymphocytes Percent Auto 5.8 % (25-40); Mean Corpuscular Hemoglobin 33.8 PG (26-34); Mean Corpuscular Volume 99.2 fL (80-100); Monocytes Absolute Auto 1000 /uL (0-900); Monocytes Percent Auto 7.6 % (3-14); Neutrophils Absolute Auto 10800 /uL (1500-7000); Neutrophils Percent Auto 86.4 % (50-75); Platelet Count 247 X10^3/uL (150-400); Red Blood Cell Count 3.17 X10^6/uL (4.5-5.9); Red Cell Distribution Width 12.8 % (11.6-14.8); White Blood Cell Count 12.5 X10^3/uL (4.5-11.0)
[2020-05-30 06:36] LABS: Alanine Aminotransferase 20 IU/L (<50); Albumin 3.2 g/dL (3.5-5.0); Alkaline Phosphatase 55 U/L (38-126); Aspartate Aminotransferase 33 IU/L (17-59); BUN Creatinine Ratio 23.6 (6-22); Blood Urea Nitrogen 26 mg/dL (9-20); Calcium 8.4 mg/dL (8.4-10.2); Carbon Dioxide 29 mmol/L (22-32); Chloride 104 mmol/L (98-107); Estimated Glomerular Filt Rate > 60.0 mL/min (>60); Globulin 3.1 g/dL (1.7-4.1); Glucose 115 mg/dL (80-110); HEMOLYSIS < 15 (0-50); Magnesium 2.4 mg/dL (1.6-2.3); Potassium 3.8 mmol/L (3.4-5.1); Sodium 138 mmol/L (137-145); Total Protein 6.3 g/dL (6.3-8.2)
[2020-05-30 06:49] LABS: Procalcitonin 5.08 ng/mL (<0.5)
[2020-05-30] MEDS: PANTOPRAZOLE 40 MG VIAL IV (08:11)
[2020-05-30] MEDS: ENOXAPARIN 40 MG/0.4 ML SYRINGE SUBCUT (08:13)
[2020-05-30] MEDS: GABAPENTIN 300 MG CAPSULE PO ×2 (08:14→21:37)
--- NOTE | 2020-05-30 12:54 | PC.NURSE ---
Addendum entered by Isiah Pan R.N. 05/30/20 14:26: Provided patient with educational material regarding Colostomy. We looked over material and talked about it. I asked him to let us know if he has any questions. Addendum entered by Isiah Pan R.N. 05/30/20 13:00: Patient had laptop and phone accessories dropped off by Joseph Romero at 1200. Original Note: Patient is having only mild stomach discomfort, denies nausea, bowel tones hypoactive in all quadrants, mild serosanguinous drainage in colostomy bag. Patient had dressing change on abdomen today, ABD pad applied with tape, new gauze and tape around Gregg drain site. Patient is up ambulating in room and hallway this shift.
--- NOTE | 2020-05-30 14:32 | P.PN_ITS ---
Subjective Subjective Date Patient Seen: 05/30/20 Time Patient Seen: 09:00 Interval history: No acute events overnight. No gas in the bag. Pain well controlled. Exam Vital Signs (past 8 hours): - 05/30/20 08:00 05/30/20 08:42 05/30/20 12:00 Temperature 97.7 F 99.1 F 98.8 F Pulse Rate 60 76 64 Respiratory Rate 16 20 18 Blood Pressure 127/84 127/84 133/91 H Pulse Oximetry 94 92 95 Oxygen Delivery Method Room Air Oxygen Flow Rate 0 Narrative Exam Narrative: PE: GENERAL: Alert, comfortable. Appears stated age. Answers questions promptly and appropriately. Vital signs noted. HENT: Normocephalic, atraumatic. Hearing intact. EYES: Conjunctiva pink, sclera white, no periorbital swelling. CARDIOVASCULAR: Regular rate. No pedal edema. RESPIRATORY: Non-tachypneic, breathing comfortably on room air. GASTROINTESTINAL: Abdomen soft, incision c/d/i, DAYTON drain serosanguinous, ostomy p/p; no output GENITALURINARY: No flank tenderness. MUSCULOSKELETAL: Equal tone and mass bilaterally. SKIN: Warm, dry, soft, appropriate color for ethnicity. No other lesions, rashes, or wounds. NEURO: Alert and Oriented X 3. No gross sensory deficits, or cognitive issues. PSYCH: A little bit hypervigilant, with a hint of pressured speech. Otherwise appropriate affect and mood. Objective Labs Result Diagrams: 05/31/20 06:39 05/31/20 06:39 Labs: Laboratory Results - last 24 hr 05/30/20 05/30/20 05:57 05:57 WBC 12.5 H RBC 3.17 L Hgb 10.7 L Hct 31.4 L MCV 99.2 MCH 33.8 MCHC 34.0 RDW 12.8 Plt Count 247 Neut % (Auto) 86.4 H Lymph % (Auto) 5.8 L [place] % (Auto) 7.6 Eos % (Auto) 0.1 L Baso % (Auto) 0.1 Neut # (Auto) 60865 H Lymph # (Auto) 700 L [place] # (Auto) 1000 H Eos # (Auto) 0 Baso # (Auto) 0 Sodium 138 Potassium 3.8 Chloride 104 Carbon Dioxide 29 BUN 26 H Creatinine 1.10 Estimated GFR > 60.0 BUN/Creatinine Ratio 23.6 H Glucose 115 H Calcium 8.4 Magnesium 2.4 H Total Bilirubin 1.0 AST 33 ALT 20 Alkaline Phosphatase 55 Total Protein 6.3 Albumin 3.2 L Globulin 3.1 Albumin/Globulin Ratio 1.0 Procalcitonin 5.08 H PFSH Social History household members: none Smoking Status: Former smoker Assessment & Plan Assessment and plan (1) S/P partial colectomy: Status: Acute (2) Fecal peritonitis: Status: Acute Assessment & Plan narrative: 69 yo man POD# 2 s/p lap converted to open sigmoid colectomy for perforated colon with fecal peritonitis. Doing well. No clear return of bowel function. Plan: Continue NGT ambulate ostomy teaching IV fluids IV abx COVID-19 COVID-19 status: Negative Result date/Date tested (Pos, Neg/Pending): 05/28/20 Time Spent With Patient Time with patient: 15-24 minutes Quality VTE Deep Vein Thrombosis/Pulmonary Embolism Present on Admission: No
--- NOTE | 2020-05-30 15:04 | CM.DPC ---
DCP Cont: Met with patient. Discussed discharge planning, and let him know the resources available. Asked him if he was interested in residential,due to his new ostomy. Patient indicated, he didn't think he needed it, but if so, would let care management know. Also, mentioned [facility] for outpatient follow up to assist with ostomy teaching. Wrote down information for patient. P: DCP to continue to follow and be available for any resources needed. Patient is still NPO, with NG tube. Gracia was removed today, has drains. Petra Rucker RN/Envelope Stamping Machine Operator
[2020-05-31] MEDS: ACETAMINOPHEN 325 MG TABLET 650 MG PO ×4 (00:04→18:28)
[2020-05-31] MEDS: PIPERACILLIN-TAZO 3.375 GM/50 ML FROZ.PIGGY IV ×4 (00:05→18:29)
[2020-05-31] MEDS: LORazepam 2 MG/ML INJ 1 MG IV (00:20)
--- NOTE | 2020-05-31 03:19 | PC.NURSE ---
0028: patient is alert and oriented. Breath sounds CTA w/RA sat of 95%. HRR. Continues to trend higher BP with current reading of 153/69. Denies nausea. NG to intermittent suction except for clamping when ambulating in [place] and for 30 minutes after po meds. Continues to be NPO except for ice chips. BT present but hypoactive. Abdomen is soft but distended. Evening RN reported earlier flatus in ostomy bag but none noted at this time; does have small amount serosanguinous drainage in ostomy bag. Had catheter removed yesterday and has been using urinal; denies dysuria, frequency or urgency. Moving himself in bed. Gait not assessed but states he ambulated multiple times yesterday with walker and 1 assist. Denies pain at rest but states pain increases to 3/10 when coughing; receiving scheduled Tylenol. Midline dressing, bandaid dressing and Gregg drain dressings are all CDI. Gregg drain is intact and compressed with serosanguinous drainage in bulb. Stoma of ostomy is beefy red. Wearing bilateral calf SCD's. Fall risk score is high and bed alarm is activated. Patient requested/medicated with Ativan to help him sleep. CIWA score is 1 as patient is uncertain of date and has slight hand tremors.
[2020-05-31 06:00] VITALS: BP 171/94; PULSE 60; RESP 16; TEMP 37.9; O2SAT 97
[2020-05-31] MEDS: DEXTROSE 5%-LACTATED RINGERS 1,000 ML 100 ML IV (06:25)
[2020-05-31 06:30] VITALS: TEMP 36.9
[2020-05-31 07:03] LABS: Blood Urea Nitrogen 29 mg/dL (9-20); Calcium 8.4 mg/dL (8.4-10.2); Carbon Dioxide 28 mmol/L (22-32); Chloride 107 mmol/L (98-107); Estimated Glomerular Filt Rate > 60.0 mL/min (>60); Glucose 95 mg/dL (80-110); HEMOLYSIS < 15 (0-50); Magnesium 2.6 mg/dL (1.6-2.3); Phosphorous 3.3 mg/dL (2.3-3.7); Potassium 3.7 mmol/L (3.4-5.1); Sodium 138 mmol/L (137-145)
[2020-05-31 07:04] LABS: Add Manual Diff / Slide Review NO; Basophils Absolute Auto 0 /uL (0-100); Basophils Percent Auto 0.5 % (0-2); Eosinophils Absolute Auto 300 /uL (0-450); Eosinophils Percent Auto 3.1 % (2-4); Hematocrit 31.5 % (41-53); Hemoglobin 10.7 g/dL (13.5-17.5); Lymphocytes Absolute Auto 1300 /uL (1100-4500); Lymphocytes Percent Auto 12.6 % (25-40); Mean Corpuscular HGB Conc 34.1 % (30-36); Mean Corpuscular Hemoglobin 33.9 PG (26-34); Mean Corpuscular Volume 99.3 fL (80-100); Monocytes Absolute Auto 800 /uL (0-900); Monocytes Percent Auto 7.3 % (3-14); Neutrophils Absolute Auto 7900 /uL (1500-7000); Neutrophils Percent Auto 76.5 % (50-75); Platelet Count 282 X10^3/uL (150-400); Red Blood Cell Count 3.17 X10^6/uL (4.5-5.9); White Blood Cell Count 10.4 X10^3/uL (4.5-11.0)
--- NOTE | 2020-05-31 07:58 | PM.PN.1 ---
Subjective Subjective Date Patient Seen: 05/31/20 Time Patient Seen: 16:26 Interval history: Passing copious gas into the ostomy bag last night and this morning. Pain well controlled. Ambulating independently. Exam Vital Signs (past 8 hours): - 05/31/20 06:00 05/31/20 06:30 Temperature 100.2 F H 98.5 F Pulse Rate 60 Respiratory Rate 16 Blood Pressure 171/94 H Pulse Oximetry 97 Oxygen Delivery Method Room Air Oxygen Flow Rate 0 Narrative Exam Narrative: GENERAL: Alert, comfortable. Appears stated age. Answers questions promptly and appropriately. Vital signs noted. HENT: Normocephalic, atraumatic. Hearing intact. EYES: Conjunctiva pink, sclera white, no periorbital swelling. CARDIOVASCULAR: Regular rate. No pedal edema. RESPIRATORY: Non-tachypneic, breathing comfortably on room air. GASTROINTESTINAL: Abdomen soft, incision c/d/i, DAYTON drain serosanguinous, ostomy p/p; Gas in the bag Objective Labs Result Diagrams: 05/31/20 06:39 05/31/20 06:39 Labs: Laboratory Results - last 24 hr 05/31/20 05/31/20 05/31/20 06:39 06:39 06:39 WBC 10.4 RBC 3.17 L Hgb 10.7 L Hct 31.5 L MCV 99.3 MCH 33.9 MCHC 34.1 RDW 13.0 Plt Count 282 Neut % (Auto) 76.5 H Lymph % (Auto) 12.6 L [place] % (Auto) 7.3 Eos % (Auto) 3.1 Baso % (Auto) 0.5 Neut # (Auto) 7900 H Lymph # (Auto) 1300 [place] # (Auto) 800 Eos # (Auto) 300 Baso # (Auto) 0 Sodium 138 Potassium 3.7 Chloride 107 Carbon Dioxide 28 BUN 29 H Creatinine 1.00 Estimated GFR > 60.0 BUN/Creatinine Ratio 29.0 H Glucose 95 Calcium 8.4 Phosphorus 3.3 Magnesium 2.6 H Procalcitonin 2.90 H PFSH Social History household members: none Smoking Status: Former smoker Assessment & Plan Assessment and plan (1) S/P partial colectomy: Status: Acute (2) Fecal peritonitis: Status: Acute Assessment & Plan narrative: 69 yo man POD# 3 s/p lap converted to open sigmoid colectomy for perforated colon with fecal peritonitis. Doing well. Has gas in the bag, NG tube removed during exam. Procalcitonin is coming down, but is still markedly abnormal. Plan: And labs tomorrow Advance to clears Advanced to fulls as tolerated ambulate ostomy teaching DC IV fluids Continue IV abx COVID-19 COVID-19 status: Negative Result date/Date tested (Pos, Neg/Pending): 05/28/20 Time Spent With Patient Time with patient: 15-24 minutes Quality VTE Deep Vein Thrombosis/Pulmonary Embolism Present on Admission: No
[2020-05-31 08:44] VITALS: BP 146/59; PULSE 64; RESP 20; TEMP 37.2; O2SAT 95
[2020-05-31] MEDS: PANTOPRAZOLE 40 MG VIAL IV (09:20)
[2020-05-31] MEDS: ENOXAPARIN 40 MG/0.4 ML SYRINGE SUBCUT (09:24)
[2020-05-31] MEDS: GABAPENTIN 300 MG CAPSULE PO ×2 (09:24→20:58)
[2020-05-31] MEDS: KETOROLAC 30 MG/ML VIAL IV (12:07)
[2020-05-31 12:35] VITALS: BP 140/63; PULSE 63; RESP 18; TEMP 37; O2SAT 96
--- NOTE | 2020-05-31 15:38 | PC.NURSE ---
Colostomy stoma remains beefy red, with appliance in place. Patient educated on colostomy care, full appliance changed with patient to assist with education and return demonstration. Midline incision with jeanne in place, CDI, and clean gauze dressing applied to incision and bulb drain insertion site. Bulb drain intact and compressed. Patient tolerating clear liquids without nausea or vomiting. Ostomy shows gas but no stool yet. Order to advance to full liquids tonight as patient tolerates and to SLIV. Patient up in chair, talking on phone, call light withinr each
[2020-05-31 19:38] VITALS: BP 139/93; PULSE 64; RESP 16; TEMP 36.3; O2SAT 98
[2020-05-31 23:50] VITALS: BP 138/83; PULSE 54; RESP 16; TEMP 37.2; O2SAT 97
[2020-06-01] MEDS: PIPERACILLIN-TAZO 3.375 GM/50 ML FROZ.PIGGY IV ×5 (00:04→23:50)
[2020-06-01] MEDS: ACETAMINOPHEN 325 MG TABLET 650 MG PO ×5 (00:04→23:49)
[2020-06-01] MEDS: SODIUM CHLORIDE 0.9% FLUSH 10 ML IV ×7 (00:05→23:53)
[2020-06-01] MEDS: LORazepam 2 MG/ML INJ 1 MG IV (01:12)
--- NOTE | 2020-06-01 03:09 | PC.NURSE ---
0100: patient is alert and oriented. Breath sounds CTA with RA sat of 97%. HRR but bradycardic with rate in 50's. BP elevated at 138/83 but improved from last nights readings. Denies nausea. BT present and abdomen is soft but still distended. Ostomy is patent and has small amount soft brown stool at stoma. Dressings to abdomen are all CDI; Gregg drain is intact and compressed. Denies dysuria, frequency or urgency with urination. Able to move self in bed. Evening RN reports patient getting up by himself and gait not assessed at this time. Since fall risk score is high activated bed alarm and instructed patient to use urinal or call staff for assist when getting up to bathroom. Denies pain. Medicated with Ativan for sleep. CIWA is 1 for slight tremor in left UE. Bilateral calf SCD's put on at shift change.
[2020-06-01 05:59] VITALS: BP 138/87; PULSE 53; RESP 16; TEMP 36.9; O2SAT 99
[2020-06-01 06:33] LABS: Procalcitonin 1.65 ng/mL (<0.5)
[2020-06-01 07:40] VITALS: BP 160/98; PULSE 55; RESP 16; TEMP 37.6; O2SAT 98
[2020-06-01] MEDS: PANTOPRAZOLE 40 MG VIAL IV (09:10)
[2020-06-01] MEDS: ENOXAPARIN 40 MG/0.4 ML SYRINGE SUBCUT (09:10)
[2020-06-01] MEDS: GABAPENTIN 300 MG CAPSULE PO ×2 (09:10→20:21)
--- NOTE | 2020-06-01 10:08 | PM.PN.1 ---
Subjective Subjective Date Patient Seen: 05/31/20 Time Patient Seen: 16:26 Interval history: Passing gas and some stool into the ostomy bag this morning. Pain well controlled. Ambulating independently. Exam Vital Signs (past 8 hours): - 06/01/20 05:59 06/01/20 07:40 Temperature 98.4 F 99.6 F Pulse Rate 53 L 55 L Respiratory Rate 16 16 Blood Pressure 138/87 160/98 H Pulse Oximetry 99 98 Oxygen Delivery Method Room Air Oxygen Flow Rate 0 Narrative Exam Narrative: GENERAL: Alert, comfortable. Appears stated age. Answers questions promptly and appropriately. Vital signs noted. HENT: Normocephalic, atraumatic. Hearing intact. EYES: Conjunctiva pink, sclera white, no periorbital swelling. CARDIOVASCULAR: Regular rate. No pedal edema. RESPIRATORY: Non-tachypneic, breathing comfortably on room air. GASTROINTESTINAL: Abdomen soft, incision c/d/i, DAYTON drain serosanguinous, ostomy p/p; Gas and stool in the bag Objective Labs Result Diagrams: 05/31/20 06:39 05/31/20 06:39 Labs: Laboratory Results - last 24 hr 06/01/20 05:49 Procalcitonin 1.65 H PFS Social History household members: none Smoking Status: Former smoker Assessment & Plan Assessment and plan (1) S/P partial colectomy: Status: Acute (2) Fecal peritonitis: Status: Acute Assessment & Plan narrative: 69 yo man POD# 4 s/p lap converted to open sigmoid colectomy for perforated colon with fecal peritonitis. Doing well. Getting ostomy teaching, continuing IV antibiotics until procalcitonin is normal. Plan: AM procalcitonin tomorrow ADAT ambulate ostomy teaching Continue IV abx COVID-19 COVID-19 status: Negative Result date/Date tested (Pos, Neg/Pending): 05/28/20 Time Spent With Patient Time with patient: 15-24 minutes Quality VTE Deep Vein Thrombosis/Pulmonary Embolism Present on Admission: No
--- NOTE | 2020-06-01 11:44 | DIET.PN ---
Dietary Progress Note RD Note: Met c pt this afternoon to go over ostomy nutrition and provided pt c copy of the [facility] Eating with an Ostomy guide. Recc pt follow low residue diet for 4-6w. Bookmarked acceptable foods and foods to avoid in each category. Pt feels confident he can follow dietary guidelines and is grateful for the book. Pt asked appropriate questions and all questions answered.
[2020-06-01 11:56] VITALS: BP 174/104; PULSE 57; RESP 16; TEMP 36.6; O2SAT 100
[2020-06-01 13:30] VITALS: BP 130/86; PULSE 66
--- NOTE | 2020-06-01 13:32 | PC.NURSE ---
Left AC IV line was leaking and discontinued by professional nursing assistant Lisa , IV site was restarted at right AC by professional nursing assistant Lisa
--- NOTE | 2020-06-01 14:11 | CM.DPNOTE ---
[facility]ed [facility] per Debbie for pt to have services in [place] and this service could not be provided by these facilities in that location. I called [facility] in [place] [phone] and their fax is [phone]. I sent a referral packet to them on 06/01/20. Fax confirmation received. Mary Shaw CM Asst.
--- NOTE | 2020-06-01 14:45 | CM.DPC ---
DCP: continued: case received, EMR reviewed, was updated several times today be Dr. Castelan re specifics of the d/c plan need. Dietary consult was ordered and Jewell did see pt and provided materials for him to take home. Met now with pt. Introduced self and role. Pt confirms that he is now planning to recover at his sister's home in [place]: Alisson Yosi: [address] [facility] [address]. Confirmed all this with discussion on pt's cell phone/speaker with pt, this d/c conference planner and Alisson. Alisson noted that she would be the one to pick pt up and her schedule is open except for her Covid vax #2 on Friday. Have now called [facility] agency back to let them know specifics of the d/c disposition. Was routed to the [place] branch: [phone] and spoke with Lisa. She confirmed that the fax has gone to a general [facility] fax and she was just receiving it now. She took the updated information. (the [facility] branch is aware to disregard the referral) Will be faxing more clinical tomorrow and letting her know d/c date. Dr. Castelan did note today in discussion with RN Coordinator Anabel that she does not know the specifics of the ostomy supplies being used. She asked that nurses caring for pt place specific noted in their PT Notes charting and Karlene agreed to facilitate this with her floor nurse team. Dr. Castelan also stated she wanted enough supply sent with pt as a bridge until the RN can open him to service and begin to provide the supplies. Will be following up tomorrow. Will include this DCP note in updates sent to [facility].
[2020-06-01 16:00] VITALS: BP 124/90; PULSE 62; RESP 18; TEMP 35.7; O2SAT 94
[2020-06-01 20:30] VITALS: BP 138/84; PULSE 62; RESP 17; TEMP 36.9; O2SAT 97
--- NOTE | 2020-06-01 23:31 | PC.NURSE ---
Ostomy Teaching Ostomy teaching for discharge home done with this patient to nurses best ability. Patient given booklet on ostomy teaching and step by step chart/diagram on changing appliance. This RN offered patient to change appliance with nurse supervision. Patient stated appliance had been previously change by day shift RN the day prior along with some ostomy teaching. Refused change of appliance today but this RN suggested at least one change with nurse supervision before patient discharge home, patient agreeable. Patient given take home packet with supplies to bridge until home health visit. These supplies included stoma measuring guide, skin prep packages, several ostomy wafers/bags, Stomahesive powder, Stomahesive paste and ostomy appliance belt. Demonstrated/described use of all supplies. Questions/concerns answered to nurses best ability. Take home package at patients bedside.
[2020-06-01] MEDS: OXYCODONE IR 5 MG TABLET PO (23:53)
[2020-06-02] VITALS: BP 132/85; PULSE 62; RESP 18; TEMP 37.2; O2SAT 93
--- NOTE | 2020-06-02 03:45 | PC.NURSE ---
0011: patient is alert and oriented. Breath sounds CTA with RA sat of 93%. HRR. BP continues elevated at 132/85. Denies nausea. Having more abdominal pain tonight rating severity as 5/10 with movement or coughing so medicated with Oxycodone. BT present and abdomen is soft but tender. Dressings CDI. Gregg drain is intact and compressed with scant serosanguinous drainage in bulb. Ostomy patent with brown liquid in bag; flatus from bag expelled. Abdomen still appears a little distended. Is independent with mobility. Bilateral calf SCD's applied for night. Due to patient being given oxycodone bed alarm is activated and patient verbalizes understanding. Fall risk score is moderate. CIWA score is 1 due to slight tremor in left UE.
[2020-06-02] MEDS: SODIUM CHLORIDE 0.9% FLUSH 10 ML IV ×4 (05:38→23:26)
[2020-06-02] MEDS: ACETAMINOPHEN 325 MG TABLET 650 MG PO ×3 (05:38→17:40)
[2020-06-02] MEDS: PIPERACILLIN-TAZO 3.375 GM/50 ML FROZ.PIGGY IV ×4 (05:38→23:25)
[2020-06-02 06:00] VITALS: BP 137/86; PULSE 59; RESP 18; TEMP 36.8; O2SAT 96
[2020-06-02 06:14] LABS: Procalcitonin 1.02 ng/mL (<0.5)
[2020-06-02] MEDS: PANTOPRAZOLE 40 MG TABLET PO (06:40)
[2020-06-02] MEDS: ENOXAPARIN 40 MG/0.4 ML SYRINGE SUBCUT (08:07)
[2020-06-02] MEDS: PSYLLIUM HUSK 1 PACKET PO ×2 (08:08→20:12)
[2020-06-02] MEDS: OXYCODONE IR 5 MG TABLET PO ×2 (08:08→16:23)
[2020-06-02] MEDS: GABAPENTIN 300 MG CAPSULE PO ×2 (08:08→20:12)
[2020-06-02 08:20] VITALS: BP 125/91; PULSE 67; RESP 16; TEMP 36.4; O2SAT 97
--- NOTE | 2020-06-02 10:22 | PC.NURSE ---
Assess- Patient is alert and oriented x3. He took a shower this morning on his own and tolerated well. Gregg drain intact with ss drainage, output is minimal. Dressing to ml is cdi, just up to the floor and she states that she will be up to take out his drain and that he is also going to stay here for another day as his Prolactin is still elevated, he is aware of this. Colostomy putting out brown liquid stool, stoma beefy red, patient also started on metamucil today.
--- NOTE | 2020-06-02 12:05 | PM.PN.1 ---
Subjective Subjective Date Patient Seen: 06/02/20 Time Patient Seen: 16:52 Interval history: No acute events overnight. The patient is tolerating PO, denies significant pain. Passing gas and stool, and learning ostomy care. Exam Vital Signs (past 8 hours): - 06/02/20 06:00 06/02/20 08:20 Temperature 98.3 F 97.6 F Pulse Rate 59 L 67 Respiratory Rate 18 16 Blood Pressure 137/86 125/91 H Pulse Oximetry 96 97 Oxygen Delivery Method Room Air Oxygen Flow Rate 0 Narrative Exam Narrative: GENERAL: Alert, comfortable. Appears stated age. Answers questions promptly and appropriately. Vital signs noted. HENT: Normocephalic, atraumatic. Hearing intact. EYES: Conjunctiva pink, sclera white, no periorbital swelling. CARDIOVASCULAR: Regular rate. No pedal edema. RESPIRATORY: Non-tachypneic, breathing comfortably on room air. GASTROINTESTINAL: Abdomen soft, incision c/d/i, DAYTON drain serosanguinous, ostomy p/p; Gas and stool in the bag; erythematous band along the right lower abdominal wall; three jeanne removed from the incision during exam and packed with xeroform; no purulence or fluid drained out Objective Labs Result Diagrams: 05/31/20 06:39 05/31/20 06:39 Labs: Laboratory Results - last 24 hr 06/02/20 05:16 Procalcitonin 1.02 H [facility] Social History household members: none Smoking Status: Former smoker Assessment & Plan Assessment and plan (1) S/P partial colectomy: Status: Acute (2) Fecal peritonitis: Status: Acute Assessment & Plan narrative: 69 yo man POD# 5 s/p lap converted to open sigmoid colectomy for perforated colon with fecal peritonitis. Doing well. Getting ostomy teaching, continuing IV antibiotics until procalcitonin is normal. New cellulitis identified today. Adding vancomycin. Will recheck procalcitonin and exam tomorrow before deciding about discharge. Patient will need education about wound care. Plan: AM procalcitonin tomorrow ADAT ambulate ostomy teaching Continue IV abx, added vancomycin Wound care COVID-19 COVID-19 status: Negative Result date/Date tested (Pos, Neg/Pending): 05/28/20 Time Spent With Patient Time with patient: 15-24 minutes Quality VTE Deep Vein Thrombosis/Pulmonary Embolism Present on Admission: No
--- NOTE | 2020-06-02 12:45 | CM.DPC ---
Addendum entered by Debbie Carey LPN 06/02/20 15:28: Spoke now with Dr. Castelan. She confirms she will gladly follow as the physician for HH services. She states she is unsure if pt's labs will be stable enough for d/c tomorrow but she will be here to see him and if all is ok he will d/c with HH services as noted and I will make sure he has enough ostomy product to bridge him to HH opening. Followed up with phone conversation to [facility]. She states they now have all they need except for the DC orders/summary and that If we have an opening earlier than we will see pt earlier. DCP team will be following up tomorrow. Original Note: DCP: assessment: Received a call from Cassy MEADOWS/[facility]. She noted that she had reached out to pt's PCP, identified by pt as Dr. Cuate King. She stated Dr. King's office had not seen pt in clinic since 2015 and are not willing to follow pt for HH need until he is re-established as a pt there. She stated they cannot accept the referral unless Dr. Castelan is willing to follow in this capacity. Have alerted care team members to alert this dc shoe planner when Dr. Castelan returns to the acute care floor again today and will discuss same with her. Called [facility] but they clarified that she is doing surgical procedures today. Have updated pt re this also. Cassy says if they receive all that they need they can see pt at his sister's home FridayJune 07. She advises sending pt with a full week of supplies when he leaves. Did find a note from martin FELDMAN re ostomy training and will send this along to Cassy as well as ABDIEL pringle and Dr. Castelan's updated note from yesterday. DCP team to follow up tomorrow with Cassy/Ladonna: [phone] and fax: [phone]. Will fax completed Face/Face once Dr. Castelan confirms she will follow for the HH services.
[2020-06-02 12:53] VITALS: BP 143/89; PULSE 67; RESP 16; TEMP 36.2; O2SAT 98
--- NOTE | 2020-06-02 16:43 | PC.NURSE ---
Shift note: Dr Castelan came to bedside to remove drain, noted increased erythema around drain site and to staple line. Removed several jeanne and then packed open area with xeroform gauze. Place multiple steri strips over site of removed drain. Both new sites covered with gauze and tape. Removed old bandaid on right side and covered staple with piece of paper tape. Medicated during procedure per JUN. New orders to be placed by Dr Castelan. Patient tolerated well.
[2020-06-02] MEDS: VANCOMYCIN 1,500 MG/300 ML PIGGYBACK 200 MG IV (18:17)
[2020-06-02 20:38] VITALS: BP 146/94; PULSE 68; RESP 18; TEMP 36.6; O2SAT 98
[2020-06-02 23:20] VITALS: BP 137/95; PULSE 67; RESP 18; TEMP 36.7; O2SAT 95
[2020-06-03] MEDS: ACETAMINOPHEN 325 MG TABLET 650 MG PO ×4 (00:05→17:36)
[2020-06-03] MEDS: LORazepam 2 MG/ML INJ 1 MG IV ×2 (00:52→22:47)
--- NOTE | 2020-06-03 03:26 | PC.NURSE ---
Pt. requested Lorazepam 1 mg. IVP @ 0052 for insomnia. States I got some medicine the other night to help me sleep. Pt. sound asleep now, CIWA score @ 2355 was zero. Pain level with movement 3-4, medicated with routine 650 mg. PO Tylenol. Will cont. POC & monitor.
[2020-06-03 03:54] VITALS: BP 144/95; PULSE 70; RESP 18; TEMP 36.6; O2SAT 96
[2020-06-03] MEDS: PIPERACILLIN-TAZO 3.375 GM/50 ML FROZ.PIGGY IV ×3 (05:11→17:36)
[2020-06-03] MEDS: SODIUM CHLORIDE 0.9% FLUSH 10 ML IV ×4 (05:12→20:22)
[2020-06-03 05:50] LABS: Add Manual Diff / Slide Review YES; Hematocrit 32.8 % (41-53); Hemoglobin 11.2 g/dL (13.5-17.5); Mean Corpuscular HGB Conc 34.3 % (30-36); Mean Corpuscular Hemoglobin 33.6 PG (26-34); Mean Corpuscular Volume 98.2 fL (80-100); Platelet Count 392 X10^3/uL (150-400); Red Blood Cell Count 3.34 X10^6/uL (4.5-5.9); Red Cell Distribution Width 12.8 % (11.6-14.8); White Blood Cell Count 12.8 X10^3/uL (4.5-11.0)
[2020-06-03] MEDS: VANCOMYCIN 1,500 MG/300 ML PIGGYBACK 200 MG IV (05:53)
[2020-06-03 06:13] LABS: Procalcitonin 0.66 ng/mL (<0.5)
[2020-06-03] MEDS: PANTOPRAZOLE 40 MG TABLET PO (06:36)
[2020-06-03 06:52] LABS: Neutrophils Absolute Manual 8704 /uL (3000-5900); Total Cells Counted 100
[2020-06-03 06:53] LABS: RBC Morphology Normal Morphology
[2020-06-03 08:00] VITALS: BP 144/87; PULSE 69; RESP 15; TEMP 36.6; O2SAT 96
[2020-06-03] MEDS: ENOXAPARIN 40 MG/0.4 ML SYRINGE SUBCUT (10:01)
[2020-06-03] MEDS: GABAPENTIN 300 MG CAPSULE PO ×2 (10:02→21:14)
[2020-06-03] MEDS: PSYLLIUM HUSK 1 PACKET PO ×2 (10:02→21:14)
[2020-06-03] MEDS: OXYCODONE IR 5 MG TABLET PO ×2 (11:43→17:42)
[2020-06-03 11:44] VITALS: RESP 14; O2SAT 97
--- NOTE | 2020-06-03 11:56 | PM.PNPO.1 ---
Subjective Subjective Date Patient Seen: 06/03/20 Time Patient Seen: 11:56 Interval history: Developed cellulitis right of midline incision several jeanne were removed yesterday from the incision. Today he has tenderness right of midline. he is tolerating a diet ostomy is working appropriately. Exam Vital Signs (past 8 hours): - 06/03/20 08:00 06/03/20 11:44 Temperature 98 F Pulse Rate 69 Respiratory Rate 15 14 Blood Pressure 144/87 H Pulse Oximetry 96 97 Oxygen Delivery Method Room Air Oxygen Flow Rate 0 Narrative Exam Narrative: General adult male alert oriented no acute distress Chest nonlabored respiration Abdomen midline incision with jeanne in place removed additional jeanne to open a 3 in midline wound purulence drained from the wound the fascia is intact the skin right of midline is warm and red Objective Labs Result Diagrams: 06/03/20 05:35 05/31/20 06:39 Labs: Laboratory Results - last 24 hr 06/03/20 06/03/20 05:35 05:35 WBC 12.8 H RBC 3.34 L Hgb 11.2 L Hct 32.8 L MCV 98.2 MCH 33.6 MCHC 34.3 RDW 12.8 Plt Count 392 Neut % (Auto) Not Reportable Lymph % (Auto) Not Reportable [place] % (Auto) Not Reportable Eos % (Auto) Not Reportable Baso % (Auto) Not Reportable Lymph # (Auto) Not Reportable [place] # (Auto) Not Reportable Baso # (Auto) Not Reportable Total Counted 100 Seg Neutrophils % 67.0 Band Neutrophils % 1.0 L Lymphocytes % (Manual) 16.0 L Monocytes % (Manual) 8.0 Eosinophils % (Manual) 6.0 H Basophils % (Manual) 1.0 Myelocytes % 1.0 H Neutrophils # (Manual) 8704 H RBC Morphology Normal morphology Procalcitonin 0.66 H PFSH Social History household members: none Smoking Status: Former smoker Assessment & Plan Post-op Postoperative Procedures: Procedures Operation Date: 05/28/20 18:00 Actual Procedures Side Surgeon p Laparoscopy, Diagnostic, GEN; converted to laparotomy w/bowel resection and colostomy Ijeoma Castelan MD Postoperative plan narrative: 69M sp hartmans for perforated diverticulitis. Progressing has return of bowel function #Cellulitis/wound infection-Packing to midline wound twice daily with iodoform gauze. Continue antibiotics until resolution of cellulitis #Diet-soft low fiber #Disposition -Tomorrow vs Friday once cellulitis improves -ostomy and wound care teaching Quality VTE Deep Vein Thrombosis/Pulmonary Embolism Present on Admission: No
--- NOTE | 2020-06-03 13:12 | CM.DPC ---
DCP Cont: Patient is to not be discharged today. Dr. Pablo, surgeon, has noted that patient has some infection around wound site. It is being packed by iodiform dressing, and will continue with IV antibiotics. Patient could possibly be ready for discharge either tomorrow or Friday. P: DCP to continue to follow. Patient could possibly discharge tomorrow or Friday. Plan is for home health with [facility] services, since they cover the area of [place]. Patient is staying with his sister in [place]. Will need to contact them and fax them over forms, DC summary at discharge. Patient is supposed to be leaving with some ostomy supplies. Petra Rucker RN/Saute Chef
--- NOTE | 2020-06-03 13:21 | PC.NURSE ---
VSS, Lung sounds clear. Patient is encouraged to use his IS. Bowel tones are hypoactive, patient has output to colostomy brown, liquidy. Dr. Pablo took jeanne out packed with Iodoform packing, and covered with dressing. Patient is tolerating ok, needed 5mg Oxycodone after dressing change. Patient pathology report given to him and he verbalized understanding of report. Patient continues to learn Ostomy care and acknowledge instructions regarding low residual diet.
[2020-06-03 15:25] VITALS: BP 133/77; PULSE 70; RESP 18; TEMP 36.7; O2SAT 95
[2020-06-03 20:02] VITALS: BP 142/69; PULSE 73; RESP 18; TEMP 37.1; O2SAT 96
[2020-06-03 23:41] VITALS: BP 127/90; PULSE 75; RESP 16; TEMP 37.1; O2SAT 97
[2020-06-04] MEDS: PIPERACILLIN-TAZO 3.375 GM/50 ML FROZ.PIGGY IV ×3 (00:05→10:50)
[2020-06-04] MEDS: PANTOPRAZOLE 40 MG TABLET PO (05:15)
[2020-06-04] MEDS: ACETAMINOPHEN 325 MG TABLET 650 MG PO ×2 (05:15→10:51)
[2020-06-04 05:44] VITALS: BP 157/90; PULSE 76; RESP 16; TEMP 36.4; O2SAT 95
[2020-06-04 06:07] LABS: Blood Urea Nitrogen 10 mg/dL (9-20); Calcium 8.7 mg/dL (8.4-10.2); Carbon Dioxide 28 mmol/L (22-32); Chloride 106 mmol/L (98-107); Estimated Glomerular Filt Rate > 60.0 mL/min (>60); Glucose 108 mg/dL (80-110); HEMOLYSIS < 15 (0-50); Sodium 135 mmol/L (137-145)
[2020-06-04 06:13] LABS: Hematocrit 33.8 % (41-53); Hemoglobin 11.7 g/dL (13.5-17.5); Mean Corpuscular HGB Conc 34.5 % (30-36); Mean Corpuscular Hemoglobin 33.9 PG (26-34); Mean Corpuscular Volume 98.2 fL (80-100); Platelet Count 453 X10^3/uL (150-400); Red Blood Cell Count 3.44 X10^6/uL (4.5-5.9); Red Cell Distribution Width 12.9 % (11.6-14.8); White Blood Cell Count 11.9 X10^3/uL (4.5-11.0)
[2020-06-04 06:14] LABS: Add Manual Diff / Slide Review YES
[2020-06-04 07:17] LABS: Neutrophils Absolute Manual 8211 /uL (3000-5900); RBC Morphology Normal Morphology; Total Cells Counted 100
[2020-06-04 08:00] VITALS: BP 138/86; PULSE 79; RESP 16; TEMP 36.6; O2SAT 96
[2020-06-04] MEDS: ENOXAPARIN 40 MG/0.4 ML SYRINGE SUBCUT (08:38)
[2020-06-04] MEDS: GABAPENTIN 300 MG CAPSULE PO (08:39)
[2020-06-04] MEDS: PSYLLIUM HUSK 1 PACKET PO (08:39)
[2020-06-04] MEDS: SODIUM CHLORIDE 0.9% FLUSH 10 ML IV (08:39)
[2020-06-04] MEDS: OXYCODONE IR 5 MG TABLET PO (08:39)
--- NOTE | 2020-06-04 09:50 | PC.NURSE ---
Addendum entered by Heidi Lanier R.N. 06/04/20 12:20: IV removed. Wound redressed. Extensive teaching regarding medications, follow up appointments, colostomy care, diet, exercise, activity given. Patient verbalized understanding. Patients IV removed. No items in safe. patient discharged with belongings via wheelchair with assist. Original Note: Patient A/O x 4. Abdomen is soft except RUQ is distended, patient is passing gas and stool into colostomy. Midline wound dsg changed. Moderate serosang drainage noted on allyvn, packing removed, ribbon 100% covered with sanginous drainage. Periwound intact, redness noted extending across right lateral aspect. No increase in warmth. Redressed with ribbon packing, gauze and tape. Patient tolerated. Patient denies abd pain while at rest, only with ambulation. Remaining jeanne intact. Patient tolerating diet. Voiding. VS WNL, stable. Patient remains afebrile.
--- NOTE | 2020-06-04 10:54 | CM.DPC ---
Addendum entered by Petra Rucker R.N. 06/04/20 11:45: Tyler called back from [facility] and stated that she did received orders, and is set for Friday visit. Original Note: DCP Cont: Dr. Pablo is planning on discharging patient home. He will go with some dressing and ostomy supplies. Spoke to patient, stated that his sister is having her COVID shot today, but has a friend in [place] that can pick him up. Stated that he will plan on going to his sister's house tomorrow, in [place]. Called [facility] and spoke to answering service. They will call back. Will fax over DC summary when complete, and face to face with orders. Patient will also need would care. P: Patient is to discharge home today, will stay with friend nikhil, then, sister's. He will go with ostomy supplies. Spoke to his home health agency, they will forward to [place] office, and will fax over DC Summary and orders. Petra Rucker RN/Flux Mixer
--- NOTE | 2020-06-04 10:57 | PM.DS.1 ---
History of Present Illness History of Present Illness Date Patient Seen: 06/04/20 Time Patient Seen: 10:57 Chief complaint: Symptoms Related To COVID, SOB, Abd Pain Narrative: 69-year-old man history of obesity who presented to the hospital May 28, 2020 with abdominal pain. He was found to have free air on CT abdomen pelvis and sigmoid diverticulitis. Discharge Providers Provider Date of admission: 05/28/20 17:11 Discharge Date: 06/04/20 Primary care physician: Cuate King MD Consults: 05/29/20 06:12 Consult to Discharge Planning Routine Comment: Consult to Ostomy Specialist Routine Comment: Consulting Provider: 05/31/20 16:32 Consult to Discharge Planning Routine Comment: Patient will need ostomy supplies set up 06/02/20 12:06 Consult to Home Health Routine Comment: pt needs one week of supplies sent with him at d/c Reason For Exam: RN for new ostomy care and supplies. Discharge provider: Barrett Pablo MD Summary Hospital Course Discharge Diagnosis: Fecal peritonitis Diverticulitis Status post partial colectomy Cellulitis Hospital Course: The patient underwent an open and sigmoid colectomy 05/28/20, he had feculent peritonitis. Postoperatively he had return of bowel function received IV antibiotics and ostomy teaching. He developed cellulitis of the midline wound 06/02. Several midline jeanne were removed and packing was placed to the midline abdominal wound. The drainage and antibiotics effectively resolved his cellulitis. On the date of discharge 06/04 he is tolerating a regular diet, has a productive ostomy, is ambulating and pain is well controlled on oral medication. Time Spent with Patient Time spent: Greater than 30 minutes Exam Vital Signs (past 8 hours): - 06/04/20 05:44 06/04/20 08:00 Temperature 97.6 F 97.8 F Pulse Rate 76 79 Respiratory Rate 16 16 Blood Pressure 157/90 H 138/86 Pulse Oximetry 95 96 Oxygen Delivery Method Room Air Oxygen Flow Rate 0 Narrative Exam Narrative: General adult male alert oriented no acute distress Chest nonlabored respiration Abdomen midline incision with jeanne. Productive ostomy. Open portion of midline wound approximately 3 in in length no active drainage erythema surrounding the wound has resolved over the past 24 hours Extremities warm well perfused without edema Objective Labs Result Diagrams: 06/04/20 05:15 06/04/20 05:15 Labs: Laboratory Results - last 24 hr 06/04/20 06/04/20 05:15 05:15 WBC 11.9 H RBC 3.44 L Hgb 11.7 L Hct 33.8 L MCV 98.2 MCH 33.9 MCHC 34.5 RDW 12.9 Plt Count 453 H Neut % (Auto) Not Reportable Lymph % (Auto) Not Reportable Freeborn % (Auto) Not Reportable Eos % (Auto) Not Reportable Baso % (Auto) Not Reportable Lymph # (Auto) Not Reportable Freeborn # (Auto) Not Reportable Baso # (Auto) Not Reportable Total Counted 100 Seg Neutrophils % 68.0 Band Neutrophils % 1.0 L Lymphocytes % (Manual) 14.0 L Atypical Lymphs % 3.0 H Monocytes % (Manual) 6.0 Eosinophils % (Manual) 3.0 Metamyelocytes % 2.0 H Myelocytes % 3.0 H Neutrophils # (Manual) 8211 H RBC Morphology Normal morphology Sodium 135 L Potassium 4.0 Chloride 106 Carbon Dioxide 28 BUN 10 Creatinine 0.83 Estimated GFR > 60.0 BUN/Creatinine Ratio 12.0 Glucose 108 Calcium 8.7 PFSH Social History household members: none Smoking Status: Former smoker Discharge Plan Discharge Plan Patient Disposition: Home Provider Discharge Comment: Discharge comment: Drink plenty of water to keep yourself hydrated. If you feel dry mouth or notice your urine becomes darker, increase your fluid intake. Wound care: Keep the lower midline wound covered. You may remove the outer dressing to shower. Pat dry after showering, replace packing, and re-cover with 4x4 gauze dressing. Change the dressing at least once per day. Pain management: Take your prescription pain medication as needed so you are able to cough, take deep breaths, sleep, and get up to walk around. You should also use Tylenol as needed for pain, as well as NSAID's such as Aleve, Advil, Ibuprofen if you are able to do so without stomach upset. Make sure to take NSAID's with food. Do not take more than the recommended dose of each. Activity: Keep active with light activity such as gentle exercise and taking walks. Avoid lifting over 10lbs, abdominal core work, or very strenuous activity. Also avoid being sedentary for prolonged periods. Other concerns: If you have any other concerns about your surgery or post operative care, please call the surgeon's office number and speak to the office nurse or the surgeon photonics engineering technologist. Emergencies: If you become ill with significant chest pain, shortness of breath, significant bleeding, or other life threatening symptoms, please call 911 or go to the ER right away. Ostomy and wound care: Continue to follow the verbal and written instructions given by the nurse regarding care and management of your ostomy site. Contact the wound care nurse at [facility] [phone] in order to continue ostomy care, support, and teaching as an outpatient. Contact your assigned home health provider for ongoing ostomy assistance at home and ostomy care supplies. Discharge orders & Medications Prescriptions: New acetaminophen [Acetaminophen Pain Relief] 500 mg tablet 1,000 mg PO Q8HR PRN (Reason: pain) Qty: 120 RF: 0 docusate sodium 100 mg capsule 100 mg PO BID PRN (Reason: prevent constipation) Qty: 60 RF: 0 oxycodone 5 mg tablet 5 mg PO Q6H PRN (Reason: post operative pain) Qty: 30 RF: 0 gabapentin 300 mg capsule 300 mg PO TID Qty: 60 RF: 0 Metamucil 3.4 gram/5.4 gram powder 1 tbsp PO BID Qty: 660 RF: 0 sulfamethoxazole-trimethoprim [Bactrim DS] 800-160 mg tablet 1 tab PO BID Qty: 14 RF: 0 Continued multivitamin [Multiple Vitamins] 1 EACH tablet 1 tab PO QDAY Qty: 0 RF: 0 aspirin 325 MG tablet,delayed release (DR/EC) 325 mg PO QDAY Qty: 0 RF: 0 Follow up/Referrals: Cuate King MD [Primary Care Provider] - Ijeoma Castelan MD [Physician] - (Please make a follow up appointment to see Dr. Castelan in the [facility] office during the week of June 12-) Diet/Activity/Treatments Diet: Diet as Tolerated Diet comment: Low Residual diet Skin/Wound/Dressing Care Report to your healthcare provider any signs of infection, such as:: chills, fever, night sweats, increased pain, unusual drainage and unusual redness Other wound treatment: Daily remove lower midline gauze dressing and packing. Replace packing with xeroform gauze, cover with dry dressing and secure with tape. Visit Report/Discharge Packet Instructions: How to Care for Your Colostomy or Ileostomy, Low-Fiber/Low-Residue Diet, DI for Prescription Opioid Use, Colostomy / Ileostomy, [facility]: Wound Care Stand Alone Forms: Surgery Discharge Discharge Data Primary Care Provider: Cuate King VTE Deep Vein Thrombosis/Pulmonary Embolism Present on Admission: No
== END 2020-06-04 12:30 | disposition home health service (06) | DRG 329 ==
LOC: ED 17:10 → AC 17:11
PROVIDERS: Specialist; Admitting Provider Surgery; Emergency Provider Nurse Practitioner Family; PCP Internal Medicine; Referring Provider Nurse Practitioner Family; Visit Provider Surgery
PROC: 0DTN0ZZ Resection of Sigmoid Colon, Open Approach (ICD-10-PCS; CPT 49320; principal; 2020-05-28 18:00)
DX: K57.20 Diverticulitis of large intestine with perforation and abscess without bleeding (principal); K65.9 Peritonitis, unspecified; L03.311 Cellulitis of abdominal wall; Z20.822 Contact with and (suspected) exposure to COVID-19; Z87.891 Personal history of nicotine dependence
CPT/HCPCS: 36415; 44143; 71275; 74177; 80048; 80053; 80305; 80320; 81001; 82150; 82550; 83605; 83690; 83735; 84100; 84145; 84484; 85007; 85025; 85379; 85610; 85730; 87040; 87077; 87086; 87635; 93005; 96361; 96365; 96375; 99222; 99284; C9803; C9113; C9290; J0330; J1100; J1170; J1650; J1885; J2060; J2250; J2270; J2405; J2543; J2704; J3010; J7121; Q9967; Q9968

== ENCOUNTER → 2020-07-07 14:33 | Outpatient (CLI) | payer MEDICARE, SELFPAY ==
[2020-05-29 02:17] VITALS: BMI 30.7
--- NOTE | 2020-07-07 | DI.RAD.S_ITS ---
PROCEDURE: XR SHOULDER LT MIN 2V INDICATIONS: Pain In Left Shoulder TECHNIQUE: 3 views of the shoulder were acquired. COMPARISON: None. FINDINGS: Bones: There are degenerative changes of the left acromioclavicular joint and the glenohumeral joint. No fractures or dislocations. No suspicious bony lesions. Visualized ribs appear intact. Soft tissues: No suspicious soft tissue calcifications. IMPRESSION: Mild degenerative changes of the left shoulder. No acute abnormality. Dictated by: David Milner M.D. on 07/07/2020 at 14:59 Approved by: David Milner M.D. on 07/07/2020 at 15:00
== END ==
PROVIDERS: PCP Internal Medicine; Referring Provider Physician Assistant; Visit Provider Physician Assistant
DX: M25.512 Pain in left shoulder (principal)
CPT/HCPCS: 73030

== ENCOUNTER → 2021-01-10 09:00 | Outpatient (CLI) | payer MEDICARE, OTHER, SELFPAY ==
[2020-05-29 02:17] VITALS: BMI 30.7
[2021-01-10 11:28] LABS: COVID19 -Nasal RAPID Negative (Negative)
== END ==
PROVIDERS: PCP Internal Medicine; Referring Provider Specialist; Visit Provider Specialist
DX: Z20.822 Contact with and (suspected) exposure to COVID-19 (principal); Z01.812 Encounter for preprocedural laboratory examination
CPT/HCPCS: 87635; C9803

== ENCOUNTER 2021-01-11 07:53 | Day surgery (SDC) | payer MEDICARE, SELFPAY ==
[2020-05-29 02:17] VITALS: BMI 30.7
--- NOTE | 2021-01-11 | PATH_ITS ---
[facility] Accession Number: [id number] . 01 Material submitted: . colon - LESION NEAR APPENDICEAL ORIFICE . 02 Diagnosis: Lesion Near Appendiceal Orifice, Biopsy: Tubular adenoma. I 01/16/2021 1356 Local . 02 Electronically signed: . Tyesha Holliday MD, Pathologist NPI- [id number] . 01 Gross description: . LESION NEAR APPENDICEAL ORIFICE: Received in formalin is 1 fragment(s) of richardson, soft tissue measuring 0.4 x 0.3 x 0.2 cm submitted entirely in 1 cassette(s) /ASAD 01/12/2021 0421 Local . 02 Pathologist provided ICD-10: D12.1 . 02 CPT . 272761 Performed at: 01 [facility] [address], [place], [place] [id number] MD Leonard Cain MD Phone: [phone] Performed at: 02 [facility] [address] [place], [place] [id number] MD Tyesha Holliday MD Phone: [phone]
[2021-01-11 08:24] VITALS: BP 138/103; PULSE 98; RESP 16; TEMP 36.5; O2SAT 98; BMI 28.0
[2021-01-11] MEDS: LACTATED RINGERS 1,000 ML 200 ML IV (08:38)
--- NOTE | 2021-01-11 09:13 | PM.PREOP ---
Pre-operative Note COVID-19 COVID-19 status: Negative Result date/Date tested (Pos, Neg/Pending): 01/10/21 Interval Note History & Physical reviewed/Exam performed by Physician: Yes Changes to H&P: No ASA Class (for procedural sedation): I
[2021-01-11] MEDS: fentaNYL 250 MCG/5 ML INJ IV (09:58)
[2021-01-11] MEDS: MIDAZOLAM 5 MG/5 ML VIAL IV (09:58)
[2021-01-11 10:18] VITALS: BP 119/88; PULSE 73; RESP 12; TEMP 36.1; O2SAT 97
--- NOTE | 2021-01-11 10:19 | PM.OP.COLON ---
Operative Date/Time/Diagnoses Date of procedure: 01/11/21 Time of procedure: 10:19 Pre-op diagnosis: Screening examination. No prior colonoscopy. Post-op diagnosis: same (One tiny lesion near the appendiceal opening. Biopsied and removed.) Procedure & Clinicians Study performed: Colonoscopy with cold biopsy. Same procedure as scheduled: Yes Indications: Patient is a gentleman who had as an end colostomy and Manuel's procedure for perforated diverticulitis. He has never had a colonoscopy. He is brought for a preoperative colonoscopy to determine if he has any colon lesions and also to determine if there are any strictures. Surgeon: Carlos Martinez Procedure Notes SCOAP/Timeout: Performed Procedure in detail: The patient was placed supine on the bed and underwent sedation. This was directed by the surgeon consisting of fentanyl and Versed. Digital rectal exam revealed a somewhat lax sphincter. Scope was inserted advanced through the rectum into a depth of 20 cm. I encountered a ball of formed stool at this point that I could not get around. I suspect that this is the upper limits however of his stump. The scope was slowly brought out. I did not see any evidence of stricture any other lesion. The scope was removed. He was given additional sedation and digital exam was performed of his colostomy. No lesions were felt. The scope was inserted advanced through the colon into the cecum. There was a tiny lesions seen adjacent to the appendix. This was biopsied and appeared to be removed. It may not be neoplastic. Scope was gradually brought out. Identified no other lesions in the colon. Patient scope was removed and he tolerated the procedure well. There was a rare diverticulum seen. Scope withdrawal time: Not applicable Sedation minutes: 23 Specimen(s): other (Cecal lesion) Complications: none Post-procedure Recommendations: Other recommendation(s) (Repeat colonoscopy depends and upon the pathology report.) Plan for aftercare: Will schedule colostomy closure. Disposition: PACU
[2021-01-11 10:23] VITALS: BP 116/92; PULSE 77; RESP 16; TEMP 36.2; O2SAT 96
[2021-01-11 10:27] VITALS: BP 114/90; PULSE 67; RESP 14; TEMP 36.2; O2SAT 96
[2021-01-11 10:44] VITALS: BP 122/91; PULSE 67; RESP 16; TEMP 36.4; O2SAT 97
== END 2021-01-11 10:49 | disposition home or self-care (01) ==
PROVIDERS: PCP Internal Medicine; Referring Provider Specialist; Visit Provider Specialist
PROC: 0DJD8ZZ Inspection of Lower Intestinal Tract, Via Natural or Artificial Opening Endoscopic (ICD-10-PCS; CPT 45378; principal; 2021-01-11 09:45)
DX: Z12.11 Encounter for screening for malignant neoplasm of colon (principal); Z93.3 Colostomy status; Z87.19 Personal history of other diseases of the digestive system; D12.1 Benign neoplasm of appendix
CPT/HCPCS: 44389; G0104; 99152; J2250; J3010

== ENCOUNTER 2021-02-20 07:54 | Inpatient (IN) | payer MEDICARE, OTHER, SELFPAY ==
[2021-02-05 16:45] VITALS: BMI 30.7
[2021-02-14 07:35] VITALS: BMI 29.2
[2021-02-20] VITALS (18 sets, daily range): BP systolic 101–131; BP diastolic 69–102; PULSE 72–90; RESP 14–18; TEMP 36.3–37.2; O2SAT 95–97; BMI 29.2
--- NOTE | 2021-02-20 | PATH_ITS ---
[facility] Accession Number: [id number] . 01 Material submitted: . anastomosis - ANASTOMOTIC DONUT . 02 Diagnosis: Anastomotic Donut: Portions of colorectal wall (anastomotic donuts) x2; negative for dysplasia or malignancy. MRV 02/22/2021 1327 Local . 02 Electronically signed: . Katia Zamarripa MD, Pathologist NPI- [id number] . 01 Gross description: . The specimen is received in formalin, labeled anastomotic donut and consists of two irregular portions of bowel measuring 1.0 x 1.0 x 0.8 cm and 3.2 x 1.5 x 1.5 cm. The mucosa is richardson-pink with normal mucosal folds, and the wall thickness measures 0.2 cm. Primer Expeditor And Drier sections are submitted in cassettes A1-A2. (EA:[id number]) /MRV 02/21/2021 1111 Local . 02 Pathologist provided ICD-10: Z43.3 . 02 CPT . 213863 Performed at: 01 [facility] [address], [place], [place] [id number] MD Leonard Cain MD Phone: [phone] Performed at: [facility] [address] [place], [place] [id number] MD Tyesha Holliday MD Phone: [phone]
[2021-02-20] MEDS: LACTATED RINGERS 1,000 ML 100 ML IV ×3 (07:30→14:24)
--- NOTE | 2021-02-20 07:30 | PM.PREOP ---
Pre-operative Note Interval Note History & Physical reviewed/Exam performed by Physician: Yes Changes to H&P: No
--- NOTE | 2021-02-20 07:43 | PM.PREOP ---
Pre-operative Note COVID-19 COVID-19 status: Result pending Result date/Date tested (Pos, Neg/Pending): 02/20/21 Interval Note History & Physical reviewed/Exam performed by Physician: Yes Changes to H&P: No
[2021-02-20 08:04] LABS: COVID19 -Nasal RAPID Negative (Negative)
--- NOTE | 2021-02-20 08:35 | P.OP_ITS ---
Procedure & Clinicians Procedure: Cystoscopy with bilateral ureteral catheter placement and Gracia catheter placement. Same procedure as scheduled: Yes Indications: This is a very pleasant gentleman who is presenting for colostomy takedown and reanastomosis. Dr. Pablo his surgeon has requested ureteral catheters to identify and help protect the ureters. The patient has been counseled regarding the procedure, risks, alternatives and wishes to proceed. Surgeon: Joseph Pepper Click Yes if Unassisted: Yes Anesthesia Type: General Operative Notes Findings: External genitalia with vitiligo. Urethral meatus normal urethra normal along its length, the sphincter it well well coapted, normal mucosa is observed throughout. The prostate shows moderate obstructive character. Ureteral orifices in normal position with clear efflux. Bladder mucosa is normal without papillary lesion or other abnormality. No stones or other abnormalities are noted within the bladder. The whistle-tip catheters are placed in the right and left collecting system without difficulty. Sixteen Armenian Gracia catheter is left in place with the ureteral catheters plugged into the Gracia. Closure Type: not applicable Specimen(s): none sent Applied: catheter Estimated Blood Loss (mL): 0 Blood products transfused: none Procedure in detail: Procedure in detail: After informed consent was obtained, the patient was identified and brought to the operating room where he was placed in a supine position on the table. Anesthesia was induced and maintained. After ensuring an adequate level of anesthesia the patient was transition to a lithotomy position. The patient was then prepped, draped and prepared in a sterile fashion for transurethral procedure. After prepping draping and ensuring an adequate level of anesthesia a 21 Armenian cystoscope was passed to the urethra prostate and into the bladder were cystoscopy is performed. The ureteral orifices again had been identified. The left ureteral orifice visualized and the whistle-tip catheter was passed up and into the collecting system. Attention was then turned to the right ureteral orifice and the 2nd was tip catheter was passed up and into the collecting system. The scope was then removed leaving the catheters in place. Gracia catheter was then passed along the whistle-tip catheters through the urethra and into the bladder once in the bladder the balloon was filled with 10 cc of sterile water. Using a 14 gauge Angiocath 1 of the whistle-tip catheters was passed to the flange of the Gracia. Using a 2nd 14 gauge Angiocath the 2nd catheter was passed through the flange of the Gracia. The drainage bag was in plugged into the flange with the ureteral catheters inside the tubing. The ureteral catheters were then secured in place with a Tegaderm. The catheter was placed to gravity drainage and the patient went on to his general surgical procedure per Dr. Pablo. Patient tolerated my procedure well and there were no complications. Complications: none Post-operative Condition: stable Disposition: other (Per Dr. Pablo) Plan for aftercare: Per Dr. Pablo
[2021-02-20] MEDS: BUPIVACAINE 0.25% (PF) VIAL 30 ML INJ (08:50)
--- NOTE | 2021-02-20 08:52 | SUR.OPER ---
Supine on padded OR bed, head on pillow, arms secured on padded arm boards at <90 degrees abduction, legs uncrossed, safety belt at thigh, tape over blanket over lower legs. Right and Left legs positioned in yellow fins.
[2021-02-20] MEDS: MINERAL OIL LIGHT TOPICAL 10 ML TOP (08:59)
[2021-02-20] MEDS: PIPERACILLIN/TAZO 4.5 GM in SODIUM CHLORIDE 0.9% 100 ML 200 ML IV (09:02)
--- NOTE | 2021-02-20 09:08 | SUR.OPER ---
Addendum entered by Linda Ware R.N. 02/20/21 09:41: zosyn 4.5 grams was started by Dr. Reed. Original Note: ZOSYN 4.5 GRAM VIAL STARTED AT 0805 AND ENDED AT [address] Mckeon.
--- NOTE | 2021-02-20 12:34 | SUR.PHASEI ---
pacu-patient care transferred to Cecily FELDMAN after Report given.
--- NOTE | 2021-02-20 12:48 | P.OP_ITS ---
Operative Date/Time/Diagnoses Date of procedure: 02/20/21 Time of procedure: 12:48 Pre-op diagnosis: Colostomy in place Post-op diagnosis: same Procedure & Clinicians Procedure: Colostomy reversal Same procedure as scheduled: Yes Indications: 70-year-old man history of perforated diverticulitis treated with Manuel's here for colostomy reversal Surgeon: Barrett Pablo Horticultural Specialty Grower Field: Stanley Millan Anesthesia Type: General Operative Notes Findings: Anastomosis is patent and without leak Specimen(s): other (Anastomotic donuts) Estimated Blood Loss (mL): 100 Procedure in detail: Patient was brought to the operating room placed supine on the table. Bilateral lower extremity compression devices were applied. He received Zosyn prior to skin incision. General anesthesia was induced and he was intubated with an endotracheal tube. He was prepped and draped in sterile fashion placed into lithotomy. Bilateral ureteral stents were placed by Dr. Pepper of Urology. The patient was then re-prepped and draped for the general surgery portion of the case. The previous midline incision was opened. The subcutaneous tissue was divided the fascia was grasped elevated and sharply incised the abdomen was entered atraumatically. The rectal stump was identified and was carefully freed from the surrounding adhesions. The rectal stump was soft. Attention was turned to the colostomy. An incision around the colostomy was made and then the colostomy was from the subcutaneous tissue and then the fascia. The colostomy was then used as a handle and the descending colon was mobilized to the level of the spleen opening the line of tolt. The colostomy now reached to the rectal stump without tension. The previous colostomy was excised and the proximal colon fit a 29 Wolof EEA Sizer. Pursestring was formed with PDS suture. The EEA stapler was then inserted into the rectum carefully advanced forward and its point deployed through the anterior rectal wall. The anvil and stapler were mated. A complete proximal and distal donuts were retrieved. The rectum was insufflated and the anastomosis was placed under saline there was a single site of bubbling from the anterior surface of the anastomosis. Several 3-0 silk sutures were used to imbricate the site of leak which was clearly id entifiable. A second leak test was performed there was no evidence of any leak. The colonoscopy was advanced to the anastomosis which appeared patent and hemostatic. A 19 Wolof drain was then placed adjacent to the anastomosis and brought out through the right abdominal wall. I placed the greater omentum into the pelvis over the anastamosis. The abdomen was irrigated with several liters of saline and gloves and gown were changed. I close the posterior rectus sheath of the previous colostomy with interupted Eithbond suture. The midline fascia was closed in running fashion from above and below with 1 PDS. The anterior sheath of the colostomy was then closed with interurpted Ethibond suture. A antwan drain was placed into the colostomy wound which was then closed with jeanne as well as midline skin incision. The ureteral stents were removed and he emerged from anesthesia and transfered to recovery in stable condition. Complications: none Post-operative Condition: stable Disposition: Acute Care
--- NOTE | 2021-02-20 13:54 | SUR.PHASEI ---
Addendum entered by Eli Rodriges R.N. 02/20/21 13:58: correct time for note: 1335 not 1345 Original Note: pacu: 1345-Patient met criteria for transfer. vss. wide awake and alert. Report to floor RN by phone (Melchor). iv saline locked. pain 2/10-=reports tolerable. No nausea. abdominal dressing with scant shadowing to dressing-area marked. binder on. maewx 4. transfer by bed on room air. belongings bag with patient. 1350-care handoff given at bedside to Melchor FELDMAN.
--- NOTE | 2021-02-20 14:05 | PT-IP ANOTE ---
checked on pt and pt just came back from surgery and refused PT. PLOF and home set up obtained. Pt agreed for PT checked back later and see how he feels.
--- NOTE | 2021-02-20 14:12 | PC.NURSE ---
Received patient from PACU to room 225, oriented to room and call light. Patient states pain is very mild, maybe a 2. Gracia in place draining clear blood tinged urine. Abdominal bulky dressing with LLQ antwan drain and RLQ DAYTON drain in place, scant dry drainage noted. VSS. Call light within reach, continue to monitor.
--- NOTE | 2021-02-20 15:49 | PC.NURSE ---
VORB: Increase LR IV fluids to 200ml per hour for next 3 hours. Monitor urine color and output. (see MAR for infusion rate change)
--- NOTE | 2021-02-20 16:01 | PT.IIE ---
Current Diagnoses Encounter for attention to colostomy (02/20/21) Surgery Performed Operation Date: 02/20/21 07:45 Actual Procedures s Ureteral Stent Placement(Bilateral) - Joseph Pepper MD p Colostomy Reversal(Not Applicable) - Barrett Pablo MD Medical History (Last Reviewed 02/19/21 @ 14:59 by Joseph Pepper MD) Arthritis Diverticula of colon Perforated diverticulum Physical Therapy Inpatient Evaluation/Re-Eval M1 PT/OT-IP Prior Functional Status Start: 02/20/21 15:03 Freq: NEEDED Status: Active Protocol: Document 02/20/21 16:01 AB (Rec: 02/20/21 17:15 [email or web address]) Medical Review Prior Functional Status Medical History Reviewed Yes Communication able to make needs known Mobility and Gait pt stated that he is independent with all mobilities and ambulation without AD Social History Household Members none Living Arrangements House Number of Floors (Floors) One Floor Number of Stairs To Enter/Railing? 3 steps wide B rails and can only hold on to one rail at a time Home Environment High Toilet,Walk in Shower Home Equipment Straight Cane,Crutches,Hand Held Shower,Grab Bars In Shower Additional Social History Comment pt stated that he will stay at his friends house in [place] initially on d/c and his friend will be able to assist him; stated that when he is allowed to drive, he will stay at his sister's house in [place] M2 PT-IP Current Condition Start: 02/20/21 15:03 Freq: NEEDED Status: Active Protocol: Document 02/20/21 16:01 AB (Rec: 02/20/21 17:15 [email or web address]) Physical Therapy Current Condition Current Condition Evaluation Date 02/20/21 Treatment Diagnosis s/p colostomy reversal; difficulty in walking Onset Date 02/20/21 M3 PT-IP Subjective Start: 02/20/21 15:03 Freq: NEEDED Status: Active Protocol: Document 02/20/21 16:01 AB (Rec: 02/20/21 17:15 [email or web address]) Subjective Physical Therapy Visit Type Type Initial Evaluation Visit Start Time 16:01 Visit Stop Time 16:36 Total Visit Minutes 35 Number of CONSULTING SME Visits 0 Physical Therapy Visit Comments Patient Comments checked back on pt and agreed to do PT Therapy Pain Assessment Pain When Pain Assessed During Mobility Pain Present Pain Present Pain Reported Location Abdomen Scale Used pain scale not stated Pain Management Techniques Distraction,Modification of Treatment,Re-positioning, Timing of Activity with Medications M4 PT-IP Mobility and Gait Start: 02/20/21 15:03 Freq: NEEDED Status: Active Protocol: Document 02/20/21 16:01 AB (Rec: 02/20/21 17:15 AB [id number]) PT-Bed Mobility Assessment Rolling Type of Rolling Log Rolling Level of Assist Maximal Assistance,1 Person Assistance Supine to Sit Supine to Sit Maximum Assistance,1 Person Assistance,Head of Bed Elevated,Bedrails Sit to Supine Sit to Supine Moderate Assistance,Head of Bed Elevated,Bedrails PT-Transfer Assessment Sit to and From Stand Sit to and from Stand Moderate Assistance,1 Person Assistance,Use of Upper Extremities Equipment Transfer Assistive Device Gait Belt,Front Wheeled Walker Orthotic/Prosthetic Devices or Brace: Yes Comments Mobility Comments educated on abdominal precautions and log roll bed mobility. pt has abdominal binder on. BP supine: 120/88. completed supine to sit HOB elevated max A and max cues and pt used bed rail. pt was able to sit on EOB SBA. c/o slight dizziness. BP: 138/88. pt completed sit to stand mod A and cues. informed nurse that bed sheets has to be change. pt tolerate standing using FWW for support mod A and was able to take a few steps ~ 3 ft using FWW but does not want to ambulate much but wants to stay standing for awhile. Tolerated ~ 8 min of standing. pt went back to bed and completed sit to supine mod A and cues. positioned pt in bed. call light and table placed within reach. Gait Assessment Gait Gait Assistance Required: Moderate Assistance,1 Person Assist Distance (Feet) 3 Able to Maintain Weight Bearing Status Yes During Gait Assistive Devices Assistive Device Gait Belt,Front Wheeled Walker Orthotic/Prosthetic Devices or Brace: No Gait Deviations General Gait Pattern Decreased Stride Length, Decreased Feet Clearance Factors Limiting Gait Function Factors Limiting Gait Function Decreased Activity Tolerance, Decreased Strength,Limited Range of Motion,Pain,Poor Balance Comments Gait Comments pls refer to mobility section for details PT-Balance Assessment Sitting Balance and Reactions Static Sitting Balance Ability Good Dynamic Sitting Balance Ability Good Standing Balance and Reactions Static Standing Balance Ability Fair Dynamic Standing Balance Ability Fair Device Used FWW M5 PT-IP Objective Assessments Start: 02/20/21 15:03 Freq: NEEDED Status: Active Protocol: Document 02/20/21 16:01 AB (Rec: 02/20/21 17:15 AB [id number]) Orientation Orientation/Cognition Level of Alertness Alert Orientation Name,Place,Situation Language Function Ability No Deficits Noted Safety Awareness Decreased Safety Awareness Memory Description No Deficits Noted Gross Range of Motion Lower Extremity ROM Assessment Within Functional Limits Strength Lower Extremity Strength Assessment Within Functional Limits Coordination Assessment Gross Coordination Gross Coordination WNL Sensation Assessment Sensation Gross Sensation WNL Muscle Tone Muscle Tone WNL Yes M6 PT-IP Treatment Start: 02/20/21 15:03 Freq: NEEDED Status: Active Protocol: Document 02/20/21 16:01 AB (Rec: 02/20/21 17:15 AB [id number]) Physical Therapy Treatment Education Education Provided Precautions,Safety M7 PT-IP Assessment and Plan Start: 02/20/21 15:03 Freq: NEEDED Status: Active Protocol: Document 02/20/21 16:01 AB (Rec: 02/20/21 17:15 AB [email or web address]) PT Summary Assessment and Plan Potential Rehabilitation Potential Good Status of Condition at Evaluation Evolving Summary Impairments Pain,ROM,Strength,Balance, Coordination,Sensation,Tone, Cognition,Bed Mobility, Transfers,Gait,Activity Tolerance Assessment Summary pt s/p colectomy reversal POD 0 and unable to toelrate much activity but sheila likely progress during hospital stay. pt plans to go to his friend 's house upon d/c and stated that his friend will be able to assist as needed. will continue to assess progress. Goals Bed Mobility Goal Independent Transfer Goal Independent,Cane,Front Wheeled Walker Gait Goal Independent,Cane,Front Wheel Walker Gait Distance 250 Other Goals up/down 3 steps 1 rail mod I improve ambulation without AD 250 ft SBA Days to Meet Goals 10 Frequency of Treatment Frequency Of Treatment Once a Day Treatment Plan Physical Therapy Treatment Plan Bed Mobility Training,Transfer Training,Gait Training, Therapeutic Exercise,Balance Retraining,Post Op Education, Discharge Planning,Hot or Cold Pack,Neuromuscular Re-ed, Coordination Retraining,Manual Therapy Other Recommendations and Next Treatment ambulation Focus Precautions Abdominal Surgery Precautions Log Roll,Lifting Restrictions, Gait Belt above Incisional Area Brace abdominal binder Recommendations To Nursing Amount of Assist Needed 1 Person Assist Discharge Recommendations PT Discharge Recommendations Home with Assistance Equipment Needed for Home Before FWW if not safe with SPC/ Discharge without AD Transportation Needs at Discharge Private Vehicle
[2021-02-20] MEDS: PIPERACILLIN/TAZO 3.375 GM in SODIUM CHLORIDE 0.9% 100 ML 25 ML IV (17:28)
[2021-02-20] MEDS: ACETAMINOPHEN 325 MG TABLET 650 MG PO ×2 (17:29→23:17)
[2021-02-20] MEDS: OXYCODONE IR 5 MG TABLET PO ×2 (17:29→22:06)
[2021-02-20] MEDS: MELATONIN 3 MG TABLET 9 MG PO (22:07)
[2021-02-21] VITALS (11 sets, daily range): BP systolic 110–148; BP diastolic 49–101; PULSE 60–81; RESP 14–23; TEMP 36.1–36.7; O2SAT 92–97
[2021-02-21] MEDS: OXYCODONE IR 5 MG TABLET PO ×5 (00:43→20:59)
[2021-02-21] MEDS: PIPERACILLIN/TAZO 3.375 GM in SODIUM CHLORIDE 0.9% 100 ML 25 ML IV ×2 (00:44→08:23)
[2021-02-21] MEDS: ACETAMINOPHEN 325 MG TABLET 650 MG PO ×2 (05:11→23:46)
[2021-02-21 05:48] LABS: Add Manual Diff / Slide Review NO; Basophils Absolute Auto 0 /uL (0-100); Basophils Percent Auto 0.2 % (0-2); Eosinophils Absolute Auto 0 /uL (0-450); Hematocrit 39.4 % (41-53); Hemoglobin 13.4 g/dL (13.5-17.5); Lymphocytes Absolute Auto 1000 /uL (1100-4500); Lymphocytes Percent Auto 7.4 % (25-40); Mean Corpuscular HGB Conc 34.1 % (30-36); Mean Corpuscular Hemoglobin 33.2 PG (26-34); Mean Corpuscular Volume 97.4 fL (80-100); Monocytes Absolute Auto 1100 /uL (0-900); Neutrophils Absolute Auto 11600 /uL (1500-7000); Neutrophils Percent Auto 84.4 % (50-75); Platelet Count 214 X10^3/uL (150-400); Red Blood Cell Count 4.04 X10^6/uL (4.5-5.9); Red Cell Distribution Width 12.8 % (11.6-14.8); White Blood Cell Count 13.7 X10^3/uL (4.5-11.0)
[2021-02-21 05:55] LABS: BUN Creatinine Ratio 12.4 (6-22); Blood Urea Nitrogen 13 mg/dL (9-20); Calcium 8.7 mg/dL (8.4-10.2); Carbon Dioxide 27 mmol/L (22-32); Chloride 101 mmol/L (98-107); Estimated Glomerular Filt Rate > 60.0 mL/min (>60); Glucose 132 mg/dL (80-110); HEMOLYSIS < 15 (0-50); Magnesium 2.3 mg/dL (1.6-2.3); Phosphorous 3.7 mg/dL (2.3-3.7); Potassium 4.4 mmol/L (3.4-5.1); Sodium 134 mmol/L (137-145)
[2021-02-21] MEDS: ENOXAPARIN 40 MG/0.4 ML SYRINGE SUBCUT (08:22)
[2021-02-21] MEDS: LACTATED RINGERS 1,000 ML 100 ML IV (08:25)
--- NOTE | 2021-02-21 09:35 | OT.IP.EVAL ---
Current Diagnoses Encounter for attention to colostomy (02/20/21) Surgery Performed Operation Date: 02/20/21 07:45 Actual Procedures s Ureteral Stent Placement(Bilateral) - Joseph Pepper MD p Colostomy Reversal(Not Applicable) - Barrett Pablo MD Past Medical History (Last Reviewed 02/19/21 @ 14:59 by Joseph Pepper MD) Arthritis Diverticula of colon History of creation of ostomy History of total left knee replacement History of total right knee replacement Hx of circumcision Hx of colostomy (05/28/20) Hx of vasectomy Perforated diverticulum S/P surgery on nasal septum Surgical History (Last Reviewed 02/19/21 @ 14:59 by Joseph Pepper MD) History of creation of ostomy History of total left knee replacement History of total right knee replacement Hx of circumcision Hx of colostomy (05/28/20) Hx of vasectomy S/P surgery on nasal septum Occupational Therapy Inpatient Evaluation/Re-Eval M1 PT/OT-IP Prior Functional Status Start: 02/20/21 15:03 Freq: NEEDED Status: Active Protocol: Document 02/21/21 09:00 [facility] (Rec: 02/21/21 14:17 [facility] [id number]) Medical Review Prior Functional Status Medical History Reviewed Yes Communication able to make needs known Mobility and Gait pt stated that he is independent with all mobilities and ambulation without AD Activities of Daily Living and IADL's Independent with all his needs . Social History Household Members none Living Arrangements House Number of Floors (Floors) One Floor Number of Stairs To Enter/Railing? 3 steps wide B rails and can only hold on to one rail at a time Home Environment High Toilet,Walk in Shower Home Equipment Straight Cane,Crutches,Hand Held Shower,Grab Bars In Shower Additional Social History Comment pt stated that he will stay at his friends house in [place] initially on d/c and his friend will be able to assist him; stated that when he is allowed to drive, he will stay at his sister's house in [place] M2 OT-IP Current Condition Start: 02/21/21 13:58 Freq: Status: Active Protocol: Document 02/21/21 09:00 [facility] (Rec: 02/21/21 14:17 [facility] [id number]) Occupational Therapy Current Condition Current Condition Evaluation Date 02/21/21 Treatment Diagnosis S/p colostomy reversal Diagnosis Onset Date 02/21/21 Post Operative Precautions Abdominal Surgery Precautions Log Roll,Lifting Restrictions, Gait Belt above Incisional Area M3 OT- IP Subjective and Pain Start: 02/21/21 13:58 Freq: Status: Active Protocol: Document 02/21/21 09:00 [facility] (Rec: 02/21/21 14:17 [facility] [id number]) OT- Subjective Occupational Therapy Visit Type Type Initial Evaluation Visit Start Time 09:00 Visit Stop Time 09:35 Total Visit Minutes 35 Occupational Therapy Visit Comments Patient Comments Pt agreed to get up for OT eval. Patient/Caregiver Goals TO go home. OT Pain Assessment Pain When Pain Assessed At Rest Pain Present Pain Present Pain Reported Location Abdomen Intensity 3 Scale Used Numeric (0 - 10) M4 OT- IP ADL's Start: 02/21/21 13:58 Freq: Status: Active Protocol: Document 02/21/21 09:00 [facility] (Rec: 02/21/21 14:17 [facility] [id number]) OT [id number] Comments OT Self-Feeding Comments Pt not issues with curret diet . OT ADL-Grooming General Evaluation Grooming Ability Standby Assistance Areas Needing Assistance Retrieving/Set-up of Grooming Items OT ADL-Oral Care General Eval Oral Care Ability Standby Assistance Areas of Assistance Retrieving/Set-Up of Items OT ADL-Dressing General Eval Lower Body Dressing Ability Standby Assistance,Maximum Assistance Comments OT Dressing Comments ABle to issue sock aid educated pt on use and able to demonstrate good safety for LB dressing needs. Pt states has a multicultural services librarian at home to use to assist for his needs. OT ADL-Toileting Comments OT Toileting Comments Pt not having to go. Gracia in place. OT ADL-Bathing Comments OT Bathing Comments NOt performed, suggested best to use a shower chair for now. M5 OT- IP IADL's Start: 02/21/21 13:58 Freq: Status: Active Protocol: Document 02/21/21 09:00 [facility] (Rec: 02/21/21 14:17 [facility] [id number]) OT-Instrumental Activities of Daily Living Home Safety Awareness Awareness of Need for Assistance at Home Good Awareness Ability to Problem Solve Emergency Able to Problem Solve Situations Home Safety Comments Pt to stay with friends and then eventually his sister house for assist. M6 OT- IP Functional Cognition Start: 02/21/21 13:58 Freq: Status: Active Protocol: Document 02/21/21 09:00 [facility] (Rec: 02/21/21 14:17 [facility] [id number]) Cognitive Factors Limiting Selfcare Function Cognitive Ability Level of Alertness Alert Patient Orientation Name,Place,Situation Attention Span Ability Capable of Focused Attention, Capable of Sustained Attention Ability to Follow Commands Able to Follow One Step Commands Safety Awareness Decreased Ability to Apply Precautions Cognitive Comments Cognitive Assessment Comments Pt needing cues to follow his precautions. OT- Vision and Hearing OT- Hearing Assessment OT- Hearing Assessment WFL M7 OT- IP Mobility and Balance Start: 02/21/21 13:58 Freq: Status: Active Protocol: Document 02/21/21 09:00 [facility] (Rec: 02/21/21 14:17 [facility] [id number]) OT-Transfer Assessment Sit to and From Stand Sit to and from Stand Contact Guard Assistance Transfers Transfer Ability Standby Assistance,Contact Guard Assistance Technique Transfer Destination Bed,Chair Transfer Technique Stand Step Pivot Devices Transfer Assistive Devices Gait Belt,Front Wheeled Walker Comments Mobility Comments CGA initially and then pt SBA with FWW. OT- Gait Assessment Comments Gait Ability Comments SBA with FWW. Pt states to look into fww if needed for home use. Pt states has a SPC. OT- Balance Assessment Sitting Balance and Reactions Static Sitting Balance Ability Good Dynamic Sitting Balance Ability Good Standing Balance and Reactions Static Standing Balance Ability Fair M8 OT- IP Objective Assessments Start: 02/21/21 13:58 Freq: Status: Active Protocol: Document 02/21/21 09:00 [facility] (Rec: 02/21/21 14:17 [facility] [id number]) OT-Muscle Tone Assessment Muscle Tone WNL Yes M9 OT- IP Assessment and Plan Start: 02/21/21 13:58 Freq: Status: Active Protocol: Document 02/21/21 09:00 [facility] (Rec: 02/21/21 14:17 [facility] [id number]) OT Summary Assessment and Plan Potential Rehabilitation Potential Good Analytic Complexity at Evaluation Low Summary OT Impairments Pain,Balance,Functional Mobility,Dressing,Toileting, Bathing,Toilet Transfers, Shower Transfers Progress Towards Goals Progressing Toward Goals Assessment Summary Pt low complexity and here due to colostomy reversal. Pt doing well so far but needing assist for ADl needs and able to issue sock aid and pt already has a multicultural services librarian to use to assist for LB dressing needs. Also suggested getting a shower chair for showering. At this time pt safer to use FWW and would need to get one. HOwever pt has a cane, but did not attempt single point cane with pt as ANTHROPOLOGY PROFESSOR just came in to work with the pt. Goals Grooming Goal Independent Dressing Goal Independent Toileting Goal Independent Bathing Goal Independent Toilet Transfer Goal Independent Shower Transfer Goal Independent Days to Meet Goals 5 Frequency of Treatment Frequency Of Treatment Once a Day Treatment Plan OT Treatment Plan ADL Training,Functional Mobility,Patient/Family Education,Discharge Planning Discharge Recommendations OT Discharge Recommendations Home with Assistance Home Equipment Needs FWW?, shower chair Transportation Needs at Discharge Private Vehicle
--- NOTE | 2021-02-21 10:27 | PT.IPTN ---
Current Diagnoses Encounter for attention to colostomy (02/20/21) Surgery Performed Operation Date: 02/20/21 07:45 Actual Procedures s Ureteral Stent Placement(Bilateral) - Joseph Pepper MD p Colostomy Reversal(Not Applicable) - Barrett Pablo MD Physical Therapy Treatment Note M2 PT-IP Current Condition Start: 02/20/21 15:03 Freq: NEEDED Status: Active Protocol: Document 02/20/21 16:01 AB (Rec: 02/20/21 17:15 AB [id number]) Physical Therapy Current Condition Current Condition Evaluation Date 02/20/21 Treatment Diagnosis s/p colostomy reversal; difficulty in walking Onset Date 02/20/21 M3 PT-IP Subjective Start: 02/20/21 15:03 Freq: NEEDED Status: Active Protocol: Document 02/21/21 10:12 [facility] (Rec: 02/21/21 10:26 [facility] [id number]) Subjective Physical Therapy Visit Type Type Treatment Note Visit Start Time 09:19 Visit Stop Time 09:42 Total Visit Minutes 23 Number of FOUR CORNER STAYER MACHINE OPERATOR Visits 1 Physical Therapy Visit Comments Patient Comments Willing to do PT Therapy Pain Assessment Pain When Pain Assessed During Mobility Pain Present Pain Present Pain Reported M4 PT-IP Mobility and Gait Start: 02/20/21 15:03 Freq: NEEDED Status: Active Protocol: Document 02/21/21 10:12 [facility] (Rec: 02/21/21 10:26 [facility] [id number]) PT-Transfer Assessment Sit to and From Stand Sit to and from Stand Contact Guard Assistance,1 Person Assistance,Use of Upper Extremities Equipment Transfer Assistive Device Gait Belt,Front Wheeled Walker Orthotic/Prosthetic Devices or Brace: Yes Comments Mobility Comments Reviewed abdominal precautions with pt prior to ambulating. Pt seated in chair as OT finishing up treatment. Pt stood pushing up from chair rails CGA. Pt stood for several seconds then walked from chair to end of bed. Continued to walk outside the room toward nurse's station SBA with assist with IV pole. Pt stood for several minutes looking outside window stating he was a bit tired. He then ambulated back to room SBA. Pt was offered to trial ambulation without AD but declined. Pt returned to sitting in the chair lowering himself down carefully using arm rests. Pt left in chair with all needs within reach. Gait Assessment Gait Gait Assistance Required: Standby Assistance,Contact Guard Assist,1 Person Assist Distance (Feet) 100 Able to Maintain Weight Bearing Status Yes During Gait Assistive Devices Assistive Device Gait Belt,Front Wheeled Walker Orthotic/Prosthetic Devices or Brace: No Gait Deviations General Gait Pattern Decreased Stride Length, Decreased Feet Clearance Factors Limiting Gait Function Factors Limiting Gait Function Decreased Activity Tolerance, Decreased Strength,Limited Range of Motion,Pain,Poor Balance Comments Gait Comments Please refer to mobility section M5 PT-IP Objective Assessments Start: 02/20/21 15:03 Freq: NEEDED Status: Active Protocol: Document 02/20/21 16:01 AB (Rec: 02/20/21 17:15 AB [id number]) Orientation Orientation/Cognition Level of Alertness Alert Orientation Name,Place,Situation Language Function Ability No Deficits Noted Safety Awareness Decreased Safety Awareness Memory Description No Deficits Noted Gross Range of Motion Lower Extremity ROM Assessment Within Functional Limits Strength Lower Extremity Strength Assessment Within Functional Limits Coordination Assessment Gross Coordination Gross Coordination WNL Sensation Assessment Sensation Gross Sensation WNL Muscle Tone Muscle Tone WNL Yes M6 PT-IP Treatment Start: 02/20/21 15:03 Freq: NEEDED Status: Active Protocol: Document 02/21/21 10:12 [facility] (Rec: 02/21/21 10:26 [id number]) Physical Therapy Treatment Education Education Provided Precautions,Safety M7 PT-IP Assessment and Plan Start: 02/20/21 15:03 Freq: NEEDED Status: Active Protocol: Document 02/21/21 10:12 [facility] (Rec: 02/21/21 10:26 [id number]) PT Summary Assessment and Plan Potential Rehabilitation Potential Good Status of Condition at Evaluation Evolving Summary Impairments Pain,ROM,Strength,Balance, Coordination,Sensation,Tone, Cognition,Bed Mobility, Transfers,Gait,Activity Tolerance Assessment Summary Pt able to tolerate more mobility this session with less pain. Able to increase ambulation distance with less pain. Will be stayinig with friend who has 2 steps to enter house so will need to trial stairs prior to DC. Goals Bed Mobility Goal Independent Transfer Goal Independent,Cane,Front Wheeled Walker Gait Goal Independent,Cane,Front Wheel Walker Gait Distance 250 Other Goals up/down 3 steps 1 rail mod I improve ambulation without AD 250 ft SBA Days to Meet Goals 10 Frequency of Treatment Frequency Of Treatment Once a Day Treatment Plan Physical Therapy Treatment Plan Bed Mobility Training,Transfer Training,Gait Training, Therapeutic Exercise,Balance Retraining,Post Op Education, Discharge Planning,Hot or Cold Pack,Neuromuscular Re-ed, Coordination Retraining,Manual Therapy Other Recommendations and Next Treatment ambulation, stairs Focus Precautions Abdominal Surgery Precautions Log Roll,Lifting Restrictions, Gait Belt above Incisional Area Brace abdominal binder Recommendations To Nursing Amount of Assist Needed 1 Person Assist Discharge Recommendations PT Discharge Recommendations Home with Assistance Equipment Needed for Home Before FWW if not safe with SPC/ Discharge without AD Transportation Needs at Discharge Private Vehicle
--- NOTE | 2021-02-21 11:24 | CM.DANOTE ---
Patient is a 70 yo male who was admitted on 02/20/21 for planned colostomy takedown. Pt has [employer] and [employer] for insurance and his PCP shows [facility] but has not been seen since 2016. EMR was reviewed. Per Surgeon, pt's surgical procedure went well with the assist of Urologist for ureteral cath and guido placement. Pt was last admitted in May 2020 for initial new colostomy placement and pt was able to d/c to friend's house in [place] for a couple days and then to his sister's house in [place] for assist with new referral to [facility] with Surgeon Dr. Pool to follow as MD since pt was not established with PCP at that time. Per PT/OT, pt has improved and recommending d/c home with assist and FWW. SW met bedside with pt and explained role and he confirms he still lives independently on [facility] and confirms that his d/c plan at last admit with friend assist and then sister assist and HH went well. Pt confirms this is his plan again but likely not needing HH. Pt's friend can transport at d/c. Pt does not anticipate any further needs but will need to advance his diet and have bowel/output function prior to discharge. Plan: SW to follow to confirm safe plan of d/c home to friend's house and sister assist when medically stable to discharge and any further identified discharge planning needs. LALIT Baez Discharge Planning/Care Management CM Discharge Assessment Start: 02/21/21 11:22 Freq: Status: Active Protocol: Document 02/21/21 11:22 BF (Rec: 02/21/21 11:24 [id number]) Discharge Planning Assessment Assigned Environmental Compliance Officer LALIT Ghosh Advance Directives? No Advance Directives on File No History Provided By Patient,Medical Record Has Patient been admitted in last 30 No days? Comment Last admission was May 2020 for initial colostomy surg Prior Living Arrangements House Household Members none Type of transporation used prior to Drives own vehicle admit Independent with ADL's Yes Is patient alert and oriented? Yes Caregiver for Another No Comment r/o HH Barriers to Discharge No Discharge Plan Home Transportation Arrangement Friend who lives in [place] will transport Referrals Initiated None needed Additional Comment r/o HH but likely not homebound Whiteboard Updated in Patient Room with Yes name and ext. # of Environmental Compliance Officer Review Status In Process Please Provide Date Initial DC 02/21/21 Assessment Was Performed Next Review Type Continued Stay Review Pre-Anesthesia Assessment Start: 02/14/21 07:35 Freq: Status: Complete Protocol: Document 02/14/21 07:35 CAB (Rec: 02/14/21 08:16 CAB [email or web address]) Pre-Anesthesia Assessment PAC Comment Pt is s/p colostomy 05/28/20. He declined PAC phone assess, reports no changes to medical/ medication history, no questions/concerns with upcoming surgery. Chart review only Patient Information Reviewed Via Chart Review Comment COVID screen not identified Primary Care Provider [facility] Seen Specialist in Last 12 Months Yes Specialist Seen Emergency,General surgeon Primary Language Argentine Preferred Language Argentine Director Audience Marketing Required No Height 180.34 cm Weight 95.254 kg Body Mass Index (BMI) 29.2 Barriers to Learning None Hx Anesthesia Reactions No Hx Family Anesthesia Reaction No Hx Malignant Hyperthermia No Hx Blood Transfusion Reaction No Anesthesia Review Requested No Fusion Analyst No alcohol intake current alcohol intake frequency 3 or more drinks per day Smoking Status Former smoker Substance Use Type marijuana History of Falling (Recent or History of No ) Patient is completely paralyzed or No completely immobile Mental Status Oriented to own ability Hx Sleep Apnea No CPAP/BIPAP use not prescribed Currently Taking a Beta Queta No Anti-Coagulant Therapy No Has a Weight Clerk No Cardiac Testing No Hx Pacemaker/ICD No Pacemaker Rep Required? No Urinary Catheter Present No Hx Urinary Self Catheterization No Diabetes No Presence of External or Internal Medical Yes Devices Received a COVID vaccine? Yes Lives With friend(s),none Patient Discharge Plan Description Return Home Comment Lives on [facility] Feels Safe in Current Environment Yes Been Physically Hurt or Threatened By a No Person in Current Environment Do you have thoughts of harming yourself None or others? Are you currently considering suicide? No Do you have a plan to hurt yourself or No Plan others? Do You Have Any Spiritual Beliefs That No May Affect Your HC Choices? Do You Have Any Cultural Practices That No May Affect Your HC Choices? Emergency Contact Name Becca Armando (niece) Emergency Contact Advance Directives? No Power of Qc Analyst No
[2021-02-21] MEDS: CALCIUM CARBONATE 500 MG TAB 1000 MG PO ×2 (12:01→17:55)
--- NOTE | 2021-02-21 13:03 | P.PN_ITS ---
Subjective Subjective Date Patient Seen: 02/21/21 Time Patient Seen: 13:03 Interval history: POD 1 colostomy reversal. No nausea no flatus. Pain adequately controlled. Exam Vital Signs (past 8 hours): - 02/21/21 05:30 02/21/21 07:45 Temperature 97.0 F L 97.6 F Pulse Rate 60 67 Respiratory Rate 16 19 Blood Pressure 143/49 H 125/94 H Pulse Oximetry 96 97 Oxygen Delivery Method Room Air Oxygen Flow Rate 0 Narrative Exam Narrative: Gen-Adult man alert and oriented no acute distress Abdomen-Drain SS appropriately tender to palpation. Dressings Clean Objective Labs Result Diagrams: 02/21/21 05:22 02/21/21 05:22 Labs: Laboratory Results - last 24 hr 02/21/21 02/21/21 05:22 05:22 WBC 13.7 H RBC 4.04 L Hgb 13.4 L Hct 39.4 L MCV 97.4 MCH 33.2 MCHC 34.1 RDW 12.8 Plt Count 214 Neut % (Auto) 84.4 H Lymph % (Auto) 7.4 L [place] % (Auto) 8.0 Eos % (Auto) 0.0 L Baso % (Auto) 0.2 Neut # (Auto) 56343 H Lymph # (Auto) 1000 L [place] # (Auto) 1100 H Eos # (Auto) 0 Baso # (Auto) 0 Sodium 134 L Potassium 4.4 Chloride 101 Carbon Dioxide 27 BUN 13 Creatinine 1.05 Estimated GFR > 60.0 BUN/Creatinine Ratio 12.4 Glucose 132 H Calcium 8.7 Phosphorus 3.7 Magnesium 2.3 PFSH Medical History Arthritis Diverticula of colon Perforated diverticulum Surgical History History of creation of ostomy History of total left knee replacement History of total right knee replacement Hx of circumcision Hx of colostomy (05/28/20) Hx of vasectomy S/P surgery on nasal septum Social History household members: none Smoking Status: Former smoker alcohol intake: current Assessment & Plan Post-op Postoperative Procedures: Procedures Operation Date: 02/20/21 07:45 Actual Procedure Side Surgeon s Ureteral Stent Placement Bilateral Joseph Pepper MD p Colostomy Reversal Not Applicable Barrett Pablo MD Postoperative plan narrative: 70M POD 1 sp colostomy reversal doing well. -Clears advance once return of bowel function -IVF saline lock once adequate PO -Remove guido cath -OOB ambulate PT/OT -SCDs and pLovenox
[2021-02-21] MEDS: MAG HYDROX/ALUM/SIMETH 30 ML UDC PO ×2 (14:23→20:59)
[2021-02-21] MEDS: ONDANSETRON 4 MG/2 ML INJ IV (23:29)
[2021-02-21] MEDS: MELATONIN 3 MG TABLET 9 MG PO (23:46)
[2021-02-22] VITALS (10 sets, daily range): BP systolic 136–151; BP diastolic 87–95; PULSE 67–76; RESP 14–19; TEMP 36.7–38; O2SAT 93–94
[2021-02-22] MEDS: PANTOPRAZOLE 40 MG VIAL IV ×3 (00:58→21:20)
[2021-02-22 05:41] LABS: Add Manual Diff / Slide Review NO; Basophils Absolute Auto 0 /uL (0-100); Basophils Percent Auto 0.4 % (0-2); Eosinophils Absolute Auto 0 /uL (0-450); Eosinophils Percent Auto 0.3 % (2-4); Hematocrit 39.6 % (41-53); Hemoglobin 13.5 g/dL (13.5-17.5); Lymphocytes Absolute Auto 1200 /uL (1100-4500); Lymphocytes Percent Auto 10.8 % (25-40); Mean Corpuscular Hemoglobin 33.2 PG (26-34); Mean Corpuscular Volume 97.6 fL (80-100); Monocytes Absolute Auto 800 /uL (0-900); Monocytes Percent Auto 6.8 % (3-14); Neutrophils Absolute Auto 9200 /uL (1500-7000); Neutrophils Percent Auto 81.7 % (50-75); Platelet Count 204 X10^3/uL (150-400); Red Blood Cell Count 4.05 X10^6/uL (4.5-5.9); Red Cell Distribution Width 12.6 % (11.6-14.8); White Blood Cell Count 11.2 X10^3/uL (4.5-11.0)
[2021-02-22 05:49] LABS: BUN Creatinine Ratio 14.8 (6-22); Blood Urea Nitrogen 13 mg/dL (9-20); Calcium 9.1 mg/dL (8.4-10.2); Carbon Dioxide 30 mmol/L (22-32); Chloride 99 mmol/L (98-107); Estimated Glomerular Filt Rate > 60.0 mL/min (>60); Glucose 119 mg/dL (80-110); HEMOLYSIS < 15 (0-50); Magnesium 2.4 mg/dL (1.6-2.3); Phosphorous 3.3 mg/dL (2.3-3.7); Potassium 4.6 mmol/L (3.4-5.1); Sodium 134 mmol/L (137-145)
[2021-02-22] MEDS: ENOXAPARIN 40 MG/0.4 ML SYRINGE SUBCUT (09:09)
[2021-02-22] MEDS: OXYCODONE IR 5 MG TABLET PO ×2 (09:09→13:46)
[2021-02-22] MEDS: LACTATED RINGERS 1,000 ML 125 ML IV (09:10)
--- NOTE | 2021-02-22 09:39 | PT.IPTN ---
Current Diagnoses Encounter for attention to colostomy (02/20/21) Artificial opening status, unspecified (02/20/21) Surgery Performed Operation Date: 02/20/21 07:45 Actual Procedures s Ureteral Stent Placement(Bilateral) - Joseph Pepper MD p Colostomy Reversal(Not Applicable) - Barrett Pablo MD Physical Therapy Treatment Note M2 PT-IP Current Condition Start: 02/20/21 15:03 Freq: NEEDED Status: Active Protocol: Document 02/20/21 16:01 AB (Rec: 02/20/21 17:15 AB [email or web address]) Physical Therapy Current Condition Current Condition Evaluation Date 02/20/21 Treatment Diagnosis s/p colostomy reversal; difficulty in walking Onset Date 02/20/21 M3 PT-IP Subjective Start: 02/20/21 15:03 Freq: NEEDED Status: Active Protocol: Document 02/22/21 09:39 AW (Rec: 02/22/21 10:30 AW [email or web address]) Subjective Physical Therapy Visit Type Type Treatment Note Visit Start Time 09:16 Visit Stop Time 09:39 Total Visit Minutes 23 Notes RN removed pt from suction prior to tx. RN notified when tx was finished. Number of WAIST CUTTER Visits 0 Physical Therapy Visit Comments Patient Comments Pt willing to participate with PT Therapy Pain Assessment Pain When Pain Assessed During Mobility Pain Present Pain Present Allowed to Sleep Location Abdomen Intensity 6 Scale Used Numeric (0 - 10) Pain Management Techniques Distraction,Modification of Treatment,Re-positioning, Timing of Activity with Medications M4 PT-IP Mobility and Gait Start: 02/20/21 15:03 Freq: NEEDED Status: Active Protocol: Document 02/22/21 09:39 AW (Rec: 02/22/21 13:17 AW [email or web address]) PT-Bed Mobility Assessment Rolling Type of Rolling Log Rolling Level of Assist Contact Guard Assistance Supine to Sit Supine to Sit Standby Assistance PT-Transfer Assessment Sit to and From Stand Sit to and from Stand Contact Guard Assistance,Use of Upper Extremities Equipment Transfer Assistive Device Gait Belt,Front Wheeled Walker Orthotic/Prosthetic Devices or Brace: Yes Transfers Transfer Destination Chair Transfer Technique amb with FWW Transfer Ability Level of Assist Contact Guard Assistance Comments Mobility Comments Pt was lying in bed as PT arrived. He completed supine to sit with log roll to left side CGA and cues for sequencing. He stood and agreed to ambulate in the halls a total of 150 feet with FWW SBA. At the midpoint, pt completed stair training 10 steps with B rails SBA. He was SOB after this activity and needed a standing rest break before continuing. On return to the room, pt transferred to the chair CGA and agreed to sit up for a while. Left pt with call light and tray table in reach. Gait Assessment Gait Gait Assistance Required: Standby Assistance,Contact Guard Assist,1 Person Assist Distance (Feet) 150 Able to Maintain Weight Bearing Status Yes During Gait Assistive Devices Assistive Device Gait Belt,Front Wheeled Walker Orthotic/Prosthetic Devices or Brace: Yes Gait Deviations General Gait Pattern Decreased Stride Length, Decreased Feet Clearance, Flexed Trunk Factors Limiting Gait Function Factors Limiting Gait Function Decreased Activity Tolerance, Decreased Strength,Limited Range of Motion,Pain,Poor Balance Comments Gait Comments Pt responds well to cues for hip extension in gait. Stair Climbing Assessment Evaluation Level of Assist On Stairs Contact Guard Assistance Devices Stair Climbing Assistive Devices Left Railing,Right Railing Technique/Endurance Stair Climbing Direction Ascend and Descend Stair Climbing Technique Step Over Step,Step to Step Number of Steps Climbed 10 Stair Climbing Set # Repetitions (reps) 1 Comments Stair Climbing Comments Step to pattern to descend. Step over step to ascend. SOB after stair climbing. M5 PT-IP Objective Assessments Start: 02/20/21 15:03 Freq: NEEDED Status: Active Protocol: Document 02/20/21 16:01 AB (Rec: 02/20/21 17:15 AB [email or web address]) Orientation Orientation/Cognition Level of Alertness Alert Orientation Name,Place,Situation Language Function Ability No Deficits Noted Safety Awareness Decreased Safety Awareness Memory Description No Deficits Noted Gross Range of Motion Lower Extremity ROM Assessment Within Functional Limits Strength Lower Extremity Strength Assessment Within Functional Limits Coordination Assessment Gross Coordination Gross Coordination WNL Sensation Assessment Sensation Gross Sensation WNL Muscle Tone Muscle Tone WNL Yes M6 PT-IP Treatment Start: 02/20/21 15:03 Freq: NEEDED Status: Active Protocol: Document 02/22/21 09:39 AW (Rec: 02/22/21 10:30 AW [email or web address]) Physical Therapy Treatment Education Education Provided Precautions,Safety Equipment Issued Equipment Type and Company Dispensed larger size abdominal binder for pt comfort as he was complaining binder was too tight and RN agreed. M7 PT-IP Assessment and Plan Start: 02/20/21 15:03 Freq: NEEDED Status: Active Protocol: Document 02/22/21 09:39 AW (Rec: 02/22/21 13:17 AW [email or web address]) PT Summary Assessment and Plan Potential Rehabilitation Potential Good Status of Condition at Evaluation Evolving Summary Impairments Pain,ROM,Strength,Balance, Coordination,Sensation,Tone, Cognition,Bed Mobility, Transfers,Gait,Activity Tolerance Assessment Summary Pt tolerating more activity with less pain. Not feeling ready for cane today. Changed abd binder today as pt complained first binder was too tight. Pt shows good attention to precautions. Will likely be safe to discharge with friend to assist once medically stable. Goals Bed Mobility Goal Independent Transfer Goal Independent,Cane,Front Wheeled Walker Gait Goal Independent,Cane,Front Wheel Walker Gait Distance 250 Other Goals up/down 3 steps 1 rail mod I improve ambulation without AD 250 ft SBA Days to Meet Goals 10 Frequency of Treatment Frequency Of Treatment Once a Day Treatment Plan Physical Therapy Treatment Plan Bed Mobility Training,Transfer Training,Gait Training, Therapeutic Exercise,Balance Retraining,Post Op Education, Discharge Planning,Hot or Cold Pack,Neuromuscular Re-ed, Coordination Retraining,Manual Therapy Other Recommendations and Next Treatment ambulation, stairs Focus Precautions Abdominal Surgery Precautions Log Roll,Lifting Restrictions, Gait Belt above Incisional Area Brace abdominal binder Recommendations To Nursing Amount of Assist Needed 1 Person Assist Discharge Recommendations PT Discharge Recommendations Home with Assistance Equipment Needed for Home Before FWW if not safe with SPC/ Discharge without AD Transportation Needs at Discharge Private Vehicle
--- NOTE | 2021-02-22 11:55 | P.PN_ITS ---
Subjective Subjective Interval history: Emesis overnight nasogastric tube placed , greater than 1 L output. Feels much better. No flatus or bowel movement yet. Exam Vital Signs (past 8 hours): - 02/22/21 05:30 02/22/21 05:47 02/22/21 07:35 Temperature 98.1 F 98.1 F Pulse Rate 76 70 Respiratory Rate 14 18 Blood Pressure 136/95 H 151/87 H Pulse Oximetry 93 93 94 02/22/21 09:00 Temperature Pulse Rate Respiratory Rate Blood Pressure Pulse Oximetry 94 Oxygen Delivery Method Room Air Oxygen Flow Rate 0 Narrative Exam Narrative: General adult male alert oriented no acute distress. Abdomen soft mildly distended compressible. Midline incision clean dry intact with jeanne. Colostomy site with [place] drain in place no cellulitis. Intra- abdominal drain serosanguineous. Objective Labs Result Diagrams: 02/22/21 04:56 02/22/21 04:56 Labs: Laboratory Results - last 24 hr 02/22/21 02/22/21 04:56 04:56 WBC 11.2 H RBC 4.05 L Hgb 13.5 Hct 39.6 L MCV 97.6 MCH 33.2 MCHC 34.0 RDW 12.6 Plt Count 204 Neut % (Auto) 81.7 H Lymph % (Auto) 10.8 L [place] % (Auto) 6.8 Eos % (Auto) 0.3 L Baso % (Auto) 0.4 Neut # (Auto) 9200 H Lymph # (Auto) 1200 [place] # (Auto) 800 Eos # (Auto) 0 Baso # (Auto) 0 Sodium 134 L Potassium 4.6 Chloride 99 Carbon Dioxide 30 BUN 13 Creatinine 0.88 Estimated GFR > 60.0 BUN/Creatinine Ratio 14.8 Glucose 119 H Calcium 9.1 Phosphorus 3.3 Magnesium 2.4 H PFSH Medical History Arthritis Diverticula of colon Perforated diverticulum Surgical History History of creation of ostomy History of total left knee replacement History of total right knee replacement Hx of circumcision Hx of colostomy (05/28/20) Hx of vasectomy S/P surgery on nasal septum Social History household members: none Smoking Status: Former smoker alcohol intake: current Assessment & Plan Post-op Postoperative Procedures: Procedures Operation Date: 02/20/21 07:45 Actual Procedure Side Surgeon s Ureteral Stent Placement Bilateral Joseph Pepper MD p Colostomy Reversal Not Applicable Barrett Pablo MD Postoperative status narrative: 70-year-old man postoperative day 2 status post colostomy reversal with a postoperative ileus - Nasogastric tube to low wall suction - Protonix - await return of bowel function. - NPO except for sips of clears and meds - out of bed and ambulate - SCDs and Lovenox.
[2021-02-22] MEDS: ACETAMINOPHEN 325 MG TABLET 650 MG PO ×2 (12:10→23:52)
--- NOTE | 2021-02-22 12:33 | OT.IPNOTE ---
Discharge pt for OT services as doing well and pt wants to focus on PT needs at this time. Pt will have assist at home when able to go home.
[2021-02-22] MEDS: METOCLOPRAMIDE 10 MG/2 ML INJ IV ×2 (14:53→21:20)
[2021-02-22] MEDS: LACTATED RINGERS 1,000 ML 1000 ML IV (17:56)
[2021-02-22] MEDS: MELATONIN 3 MG TABLET 9 MG PO (21:20)
--- NOTE | 2021-02-22 23:47 | PC.NURSE ---
Pt. states he is passing a lot of flatus, assisted to the bathroom and pass more gas and a scant amt. of bloody liquid and specks of brown stool.
[2021-02-23] VITALS (13 sets, daily range): BP systolic 139–165; BP diastolic 82–96; PULSE 62–83; RESP 14–20; TEMP 36.4–37.3; O2SAT 94–96
[2021-02-23] MEDS: LACTATED RINGERS 1,000 ML 125 ML IV ×2 (02:44→11:14)
[2021-02-23 05:58] LABS: Add Manual Diff / Slide Review NO; Basophils Absolute Auto 100 /uL (0-100); Basophils Percent Auto 0.8 % (0-2); Eosinophils Absolute Auto 300 /uL (0-450); Eosinophils Percent Auto 3.3 % (2-4); Hematocrit 37.7 % (41-53); Hemoglobin 12.8 g/dL (13.5-17.5); Lymphocytes Absolute Auto 1600 /uL (1100-4500); Mean Corpuscular HGB Conc 33.9 % (30-36); Mean Corpuscular Hemoglobin 33.1 PG (26-34); Mean Corpuscular Volume 97.7 fL (80-100); Monocytes Absolute Auto 800 /uL (0-900); Monocytes Percent Auto 8.5 % (3-14); Neutrophils Absolute Auto 7000 /uL (1500-7000); Neutrophils Percent Auto 71.4 % (50-75); Platelet Count 204 X10^3/uL (150-400); Red Blood Cell Count 3.86 X10^6/uL (4.5-5.9); Red Cell Distribution Width 12.6 % (11.6-14.8); White Blood Cell Count 9.8 X10^3/uL (4.5-11.0)
[2021-02-23] MEDS: ACETAMINOPHEN 325 MG TABLET 650 MG PO ×3 (05:59→18:24)
[2021-02-23] MEDS: METOCLOPRAMIDE 10 MG/2 ML INJ IV ×3 (05:59→22:25)
[2021-02-23 06:25] LABS: BUN Creatinine Ratio 15.1 (6-22); Blood Urea Nitrogen 13 mg/dL (9-20); Calcium 8.6 mg/dL (8.4-10.2); Carbon Dioxide 30 mmol/L (22-32); Chloride 100 mmol/L (98-107); Estimated Glomerular Filt Rate > 60.0 mL/min (>60); Glucose 98 mg/dL (80-110); HEMOLYSIS < 15 (0-50); Magnesium 2.1 mg/dL (1.6-2.3); Phosphorous 3.3 mg/dL (2.3-3.7); Potassium 3.9 mmol/L (3.4-5.1); Sodium 134 mmol/L (137-145)
[2021-02-23] MEDS: ENOXAPARIN 40 MG/0.4 ML SYRINGE SUBCUT (10:48)
[2021-02-23] MEDS: PANTOPRAZOLE 40 MG VIAL IV ×2 (10:49→20:58)
--- NOTE | 2021-02-23 13:23 | DI.RAD.S_ITS ---
PROCEDURE: XR ACUTE ABDOMEN SERIES INDICATIONS: distention post ostomy closure. evaluate bowel gas pattern TECHNIQUE: One view chest and two views of the abdomen were acquired. COMPARISON: None. FINDINGS: Surgical changes and devices: None. Chest: Lungs are clear. Heart size is normal. No pleural effusions. No pneumoperitoneum. Abdomen: Gaseous distention of multiple loops of small bowel. Scattered air-fluid levels are noted. Several of the air-fluid levels have differential height. A surgical drain projects over the lower pelvis. Numerous surgical clips project over the midline of the pelvis. No suspicious calcifications. Visualized solid organ contours appear normal. Bones: No suspicious bony lesions. IMPRESSION: Dilated loops of small bowel with scattered air-fluid levels which could represent partial small bowel obstruction or ileus. Dictated by: Tonya Cooper MD, PhD on 02/23/2021 at 14:38 Approved by: Tonya Cooper MD, PhD on 02/23/2021 at 14:39
--- NOTE | 2021-02-23 13:40 | P.PN_ITS ---
Subjective Subjective Date Patient Seen: 02/23/21 Time Patient Seen: 13:00 Interval history: Patient post colostomy closure. He has had 3 bowel movements 1 of which was quite large per his history. Still feels a little distended. Exam Vital Signs (past 8 hours): - 02/23/21 07:41 02/23/21 09:00 02/23/21 11:00 Temperature 98.2 F 99.1 F Pulse Rate 70 66 Respiratory Rate 18 17 Blood Pressure 158/93 H 165/92 H Pulse Oximetry 94 94 96 02/23/21 12:35 Temperature Pulse Rate Respiratory Rate Blood Pressure Pulse Oximetry 95 Oxygen Delivery Method Room Air Oxygen Flow Rate 0 Narrative Exam Narrative: Cooperative in no apparent distress. Lungs clear. Abdomen a bit distended but soft. No unusual tenderness. Alert. Objective Labs Result Diagrams: 02/23/21 05:20 02/23/21 05:20 Labs: Laboratory Results - last 24 hr 02/23/21 02/23/21 05:20 05:20 WBC 9.8 RBC 3.86 L Hgb 12.8 L Hct 37.7 L MCV 97.7 MCH 33.1 MCHC 33.9 RDW 12.6 Plt Count 204 Neut % (Auto) 71.4 Lymph % (Auto) 16.0 L [place] % (Auto) 8.5 Eos % (Auto) 3.3 Baso % (Auto) 0.8 Neut # (Auto) 7000 Lymph # (Auto) 1600 [place] # (Auto) 800 Eos # (Auto) 300 Baso # (Auto) 100 Sodium 134 L Potassium 3.9 Chloride 100 Carbon Dioxide 30 BUN 13 Creatinine 0.86 Estimated GFR > 60.0 BUN/Creatinine Ratio 15.1 Glucose 98 Calcium 8.6 Phosphorus 3.3 Magnesium 2.1 [facility] Medical History Arthritis Diverticula of colon Perforated diverticulum Surgical History History of creation of ostomy History of total left knee replacement History of total right knee replacement Hx of circumcision Hx of colostomy (05/28/20) Hx of vasectomy S/P surgery on nasal septum Social History household members: none Smoking Status: Former smoker alcohol intake: current Assessment & Plan Post-op Postoperative Procedures: Procedures Operation Date: 02/20/21 07:45 Actual Procedure Side Surgeon s Ureteral Stent Placement Bilateral Joseph Pepper MD p Colostomy Reversal Not Applicable Barrett Pablo MD Postoperative status: doing well Postoperative status narrative: Discontinued his NG tube. X-rays ordered to evaluate his distension further. Postoperative plan narrative: Mobilize. X-rays. Continue IV fluids.
--- NOTE | 2021-02-23 14:44 | PT.IPTN ---
Current Diagnoses Encounter for attention to colostomy (02/20/21) Artificial opening status, unspecified (02/20/21) Surgery Performed Operation Date: 02/20/21 07:45 Actual Procedures s Ureteral Stent Placement(Bilateral) - Joseph Pepper MD p Colostomy Reversal(Not Applicable) - Barrett Pablo MD Physical Therapy Treatment Note M2 PT-IP Current Condition Start: 02/20/21 15:03 Freq: NEEDED Status: Active Protocol: Document 02/20/21 16:01 AB (Rec: 02/20/21 17:15 AB [id number]) Physical Therapy Current Condition Current Condition Evaluation Date 02/20/21 Treatment Diagnosis s/p colostomy reversal; difficulty in walking Onset Date 02/20/21 M3 PT-IP Subjective Start: 02/20/21 15:03 Freq: NEEDED Status: Active Protocol: Document 02/23/21 14:17 KS (Rec: 02/23/21 15:57 KS [id number]) Subjective Physical Therapy Visit Type Type Treatment Note Visit Start Time 14:17 Visit Stop Time 14:44 Total Visit Minutes 27 Number of POWER DRIVEN BRUSH MAKER Visits 1 Physical Therapy Visit Comments Patient Comments Pt willing to participate with PT M4 PT-IP Mobility and Gait Start: 02/20/21 15:03 Freq: NEEDED Status: Active Protocol: Document 02/23/21 14:17 KS (Rec: 02/23/21 15:57 KS [id number]) PT-Bed Mobility Assessment Rolling Type of Rolling Log Rolling Level of Assist Contact Guard Assistance Supine to Sit Supine to Sit Standby Assistance Sit to Supine Sit to Supine Minimal Assistance Scooting Scooting to Edge of Bed Standby Assistance PT-Transfer Assessment Sit to and From Stand Sit to and from Stand Contact Guard Assistance,Use of Upper Extremities Equipment Transfer Assistive Device Gait Belt,Front Wheeled Walker Orthotic/Prosthetic Devices or Brace: Yes Transfers Transfer Destination Bed Transfer Technique amb with FWW Transfer Ability Level of Assist Contact Guard Assistance Comments Mobility Comments Pt in bed upon arrival from therapy. CGA for logroll and sup<>sit. Pt then sit<>Stand w / FWW and transferred to [facility] CGA. After using commode, pt ambulated ~300 [address] in hallway w / FWW and SBA. Min cues for upright posture. Pt returned to room and required cues for logroll and Min A for LE guidance back into bed for sit <>sup. Pt left in bed w/ all needs in reach.. Gait Assessment Gait Gait Assistance Required: Standby Assistance,Contact Guard Assist,1 Person Assist Distance (Feet) 300 Able to Maintain Weight Bearing Status Yes During Gait Assistive Devices Assistive Device Gait Belt,Front Wheeled Walker Orthotic/Prosthetic Devices or Brace: Yes Gait Deviations General Gait Pattern Decreased Stride Length, Decreased Feet Clearance, Flexed Trunk Factors Limiting Gait Function Factors Limiting Gait Function Decreased Activity Tolerance, Decreased Strength,Limited Range of Motion,Pain,Poor Balance Comments Gait Comments Please refer to mobility section for details. M5 PT-IP Objective Assessments Start: 02/20/21 15:03 Freq: NEEDED Status: Active Protocol: Document 02/20/21 16:01 AB (Rec: 02/20/21 17:15 AB [id number]) Orientation Orientation/Cognition Level of Alertness Alert Orientation Name,Place,Situation Language Function Ability No Deficits Noted Safety Awareness Decreased Safety Awareness Memory Description No Deficits Noted Gross Range of Motion Lower Extremity ROM Assessment Within Functional Limits Strength Lower Extremity Strength Assessment Within Functional Limits Coordination Assessment Gross Coordination Gross Coordination WNL Sensation Assessment Sensation Gross Sensation WNL Muscle Tone Muscle Tone WNL Yes M6 PT-IP Treatment Start: 02/20/21 15:03 Freq: NEEDED Status: Active Protocol: Document 02/23/21 14:17 KS (Rec: 02/23/21 15:57 KS [id number]) Physical Therapy Treatment Education Education Provided Precautions,Safety M7 PT-IP Assessment and Plan Start: 02/20/21 15:03 Freq: NEEDED Status: Active Protocol: Document 02/23/21 14:17 KS (Rec: 02/23/21 15:57 KS [id number]) PT Summary Assessment and Plan Potential Rehabilitation Potential Good Status of Condition at Evaluation Evolving Summary Impairments Pain,ROM,Strength,Balance, Coordination,Sensation,Tone, Cognition,Bed Mobility, Transfers,Gait,Activity Tolerance Assessment Summary Pt continues to require SBA to [facility] for transfers and ambulation. He was able to ambulate ~300 ft w/ FWW w/ min cues for upright posture. Min A required for LE guidance into bed and cues for logroll. Anticipate pt to be safe to d /c home w/ friend providing assistance when medically stable. Goals Bed Mobility Goal Independent Transfer Goal Independent,Cane,Front Wheeled Walker Gait Goal Independent,Cane,Front Wheel Walker Gait Distance 250 Other Goals up/down 3 steps 1 rail mod I improve ambulation without AD 250 ft SBA Days to Meet Goals 10 Frequency of Treatment Frequency Of Treatment Once a Day Treatment Plan Physical Therapy Treatment Plan Bed Mobility Training,Transfer Training,Gait Training, Therapeutic Exercise,Balance Retraining,Post Op Education, Discharge Planning,Hot or Cold Pack,Neuromuscular Re-ed, Coordination Retraining,Manual Therapy Other Recommendations and Next Treatment ambulation, stairs Focus Precautions Abdominal Surgery Precautions Log Roll,Lifting Restrictions, Gait Belt above Incisional Area Brace abdominal binder Recommendations To Nursing Amount of Assist Needed 1 Person Assist Discharge Recommendations PT Discharge Recommendations Home with Assistance Equipment Needed for Home Before FWW if not safe with SPC/ Discharge without AD Transportation Needs at Discharge Private Vehicle
[2021-02-23] MEDS: LACTATED RINGERS 1,000 ML 80 ML IV (20:37)
[2021-02-23] MEDS: MELATONIN 3 MG TABLET 9 MG PO (22:24)
[2021-02-24] VITALS (12 sets, daily range): BP systolic 121–142; BP diastolic 69–96; PULSE 66–75; RESP 17–19; TEMP 36.1–37; O2SAT 95–97
[2021-02-24] MEDS: ACETAMINOPHEN 325 MG TABLET 650 MG PO ×5 (00:04→23:36)
[2021-02-24] MEDS: METOCLOPRAMIDE 10 MG/2 ML INJ IV ×3 (05:59→21:02)
[2021-02-24] MEDS: PANTOPRAZOLE 40 MG VIAL IV ×2 (11:17→21:02)
[2021-02-24] MEDS: ENOXAPARIN 40 MG/0.4 ML SYRINGE SUBCUT (11:17)
[2021-02-24] MEDS: LACTATED RINGERS 1,000 ML 80 ML IV (12:28)
--- NOTE | 2021-02-24 13:07 | PM.PNPO.1 ---
Subjective Subjective Interval history: The patient is feeling much better. Really not having any abdominal pain. Passing a large amount of flatus and also having multiple bowel movements. NG tube was removed yesterday. He has been kept NPO however due to abdominal distension at the time. Exam Vital Signs (past 8 hours): - 02/24/21 07:52 02/24/21 11:00 Temperature 98.2 F Pulse Rate 73 Respiratory Rate 18 Blood Pressure 140/89 Pulse Oximetry 97 95 Oxygen Delivery Method Room Air Oxygen Flow Rate 0 Narrative Exam Narrative: Cooperative in no apparent distress. Abdomen is much less distended and quite soft today. Lungs are clear. Incisions are intact. There is no cellulitis. Drain sites are looking all right as well. Drainage from the bulb is serous. Objective Labs Result Diagrams: 02/23/21 05:20 02/23/21 05:20 [facility] Medical History Arthritis Diverticula of colon Perforated diverticulum Surgical History History of creation of ostomy History of total left knee replacement History of total right knee replacement Hx of circumcision Hx of colostomy (05/28/20) Hx of vasectomy S/P surgery on nasal septum Social History household members: none Smoking Status: Former smoker alcohol intake: current Assessment & Plan Post-op Postoperative Procedures: Procedures Operation Date: 02/20/21 07:45 Actual Procedure Side Surgeon s Ureteral Stent Placement Bilateral Joseph Pepper MD p Colostomy Reversal Not Applicable Barrett Pablo MD Postoperative status: doing well Postoperative plan: other (Advance to clear liquids now. Removed his drain from his abdominal cavity as well as from the ostomy site after painting the regions with Betadine. May continue to shower. Dressings not necessary at the time of showering. Reapply to the ostomy site and the drain site afterward. Encouraged ambul)
--- NOTE | 2021-02-24 14:00 | PT.IPTN ---
Current Diagnoses Encounter for attention to colostomy (02/20/21) Artificial opening status, unspecified (02/20/21) Surgery Performed Operation Date: 02/20/21 07:45 Actual Procedures s Ureteral Stent Placement(Bilateral) - Joseph Pepper MD p Colostomy Reversal(Not Applicable) - Barrett Pablo MD Physical Therapy Treatment Note M2 PT-IP Current Condition Start: 02/20/21 15:03 Freq: NEEDED Status: Active Protocol: Document 02/20/21 16:01 AB (Rec: 02/20/21 17:15 AB [id number]) Physical Therapy Current Condition Current Condition Evaluation Date 02/20/21 Treatment Diagnosis s/p colostomy reversal; difficulty in walking Onset Date 02/20/21 M3 PT-IP Subjective Start: 02/20/21 15:03 Freq: NEEDED Status: Active Protocol: Document 02/24/21 14:00 AB (Rec: 02/24/21 16:05 AB [id number]) Subjective Physical Therapy Visit Type Type Treatment Note Visit Start Time 14:00 Visit Stop Time 14:47 Total Visit Minutes 47 Number of CHIEF WRITER Visits 0 Physical Therapy Visit Comments Patient Comments agreeable to do PT; stated that he has walked with the nurses and did 2 flights of steps already but agreed to do PT. nurse confirmed M4 PT-IP Mobility and Gait Start: 02/20/21 15:03 Freq: NEEDED Status: Active Protocol: Document 02/24/21 14:00 AB (Rec: 02/24/21 16:05 AB [id number]) PT-Bed Mobility Assessment Rolling Type of Rolling Log Rolling Level of Assist Independent Supine to Sit Supine to Sit Independent Sit to Supine Sit to Supine Independent PT-Transfer Assessment Sit to and From Stand Sit to and from Stand Independent Equipment Transfer Assistive Device None Orthotic/Prosthetic Devices or Brace: Yes Transfers Transfer Destination Bed,Chair Transfer Technique ambulated Transfer Ability Level of Assist Standby Assistance Comments Mobility Comments pt sitting on chair and completed sit to stand independent. ambulated in the hallway without AD. presents with antalgic gait with increase lateral trunk lean to the R and RLE ER. pt with gait deviation but able to ambulate without lose of balance. pt completed up/down steps using 1 R rail SBA. pt ambulated back to his room SBa without AD. completed log roll sit<>supine mod I. pt requested to stay in bed. positioned pt in bed. call light and table placed within reach. informed pt regarding mobility and agreed that no further PT need at this time. Pt stated that he can ask the nurse to ambulate with him again for safety. informed nurse that pt will be d/c'd from PT. Gait Assessment Gait Gait Assistance Required: Standby Assistance Distance (Feet) 300 Able to Maintain Weight Bearing Status Yes During Gait Assistive Devices Assistive Device None Orthotic/Prosthetic Devices or Brace: Yes Gait Deviations General Gait Pattern Antalgic,Lateral Trunk Lean Factors Limiting Gait Function Factors Limiting Gait Function Decreased Activity Tolerance, Decreased Strength,Poor Balance,Poor Safety Awareness Stair Climbing Assessment Evaluation Level of Assist On Stairs Standby Assistance Devices Stair Climbing Assistive Devices Right Railing Technique/Endurance Stair Climbing Direction Ascend and Descend Stair Climbing Technique Step Over Step Number of Steps Climbed 3 Stair Climbing Set # Repetitions (reps) 2 M5 PT-IP Objective Assessments Start: 02/20/21 15:03 Freq: NEEDED Status: Active Protocol: Document 02/20/21 16:01 AB (Rec: 02/20/21 17:15 [facility] Orientation Orientation/Cognition Level of Alertness Alert Orientation Name,Place,Situation Language Function Ability No Deficits Noted Safety Awareness Decreased Safety Awareness Memory Description No Deficits Noted Gross Range of Motion Lower Extremity ROM Assessment Within Functional Limits Strength Lower Extremity Strength Assessment Within Functional Limits Coordination Assessment Gross Coordination Gross Coordination WNL Sensation Assessment Sensation Gross Sensation WNL Muscle Tone Muscle Tone WNL Yes M6 PT-IP Treatment Start: 02/20/21 15:03 Freq: NEEDED Status: Active Protocol: Document 02/24/21 14:00 AB (Rec: 02/24/21 16:05 [email or web address]) Physical Therapy Treatment Education Education Provided Precautions,Safety M7 PT-IP Assessment and Plan Start: 02/20/21 15:03 Freq: NEEDED Status: Active Protocol: Document 02/24/21 14:00 AB (Rec: 02/24/21 16:05 [email or web address]) PT Summary Assessment and Plan Potential Rehabilitation Potential Good Summary Impairments Pain,ROM,Strength,Balance, Coordination,Sensation,Tone, Cognition,Bed Mobility, Transfers,Gait,Activity Tolerance Progress Towards Goals Progressing Toward Goals Assessment Summary pt requiring SBA with ambulation without AD and able to complete stairs using 1 rail SBA. pt plans to go home to his friend's house and his friend will be able to assist him. no further PT intervention indicated at this time. will d/c PT. Goals Bed Mobility Goal Independent Transfer Goal Independent,Cane,Front Wheeled Walker Gait Goal Independent,Cane,Front Wheel Walker Gait Distance 250 Other Goals up/down 3 steps 1 rail mod I improve ambulation without AD 250 ft SBA Days to Meet Goals 10 Frequency of Treatment Frequency Of Treatment Discharge Treatment Plan Physical Therapy Treatment Plan Bed Mobility Training,Transfer Training,Gait Training, Therapeutic Exercise,Balance Retraining,Post Op Education, Discharge Planning,Hot or Cold Pack,Neuromuscular Re-ed, Coordination Retraining,Manual Therapy Other Recommendations and Next Treatment ambulation, stairs Focus Precautions Abdominal Surgery Precautions Log Roll,Lifting Restrictions, Gait Belt above Incisional Area Brace abdominal binder Recommendations To Nursing Amount of Assist Needed 1 Person Assist Discharge Recommendations PT Discharge Recommendations Home with Assistance Transportation Needs at Discharge Private Vehicle
--- NOTE | 2021-02-24 14:03 | PC.NURSE ---
ambulated pt around entire hallway of 2nd floor and 2 levels of stairs- also given popsicle
--- NOTE | 2021-02-24 15:44 | PC.NURSE ---
AMBULATING IN HALLWAYS SBA WITH PT. PT HAS NOW RELEASED HIM TO STAFF AND INDEP.IN ROOM
[2021-02-24] MEDS: MELATONIN 3 MG TABLET 9 MG PO (23:36)
[2021-02-25] VITALS (11 sets, daily range): BP systolic 138–150; BP diastolic 84–97; PULSE 60–74; RESP 16–20; TEMP 36.1–37.2; O2SAT 95–96
[2021-02-25] MEDS: ACETAMINOPHEN 325 MG TABLET 650 MG PO (06:39)
[2021-02-25] MEDS: METOCLOPRAMIDE 10 MG/2 ML INJ IV ×2 (06:40→14:05)
[2021-02-25] MEDS: PANTOPRAZOLE 40 MG VIAL IV ×2 (08:48→20:52)
[2021-02-25] MEDS: ENOXAPARIN 40 MG/0.4 ML SYRINGE SUBCUT (08:48)
--- NOTE | 2021-02-25 10:24 | P.PN_ITS ---
Subjective Subjective Date Patient Seen: 02/25/21 Time Patient Seen: 10:24 Interval history: Maxim tolerated his clear liquid diet all day yesterday. He consumed a s ignificant amount of clear liquids and did experience some reflux afterwards. He is having bowel function now and he is hungry. Exam Vital Signs (past 8 hours): - 02/25/21 03:00 02/25/21 04:12 02/25/21 07:42 Temperature 96.9 F L Pulse Rate 60 Respiratory Rate 17 Blood Pressure 138/84 Pulse Oximetry 96 95 95 02/25/21 07:52 02/25/21 09:00 Temperature 97.0 F L Pulse Rate 65 Respiratory Rate 16 Blood Pressure 139/95 H Pulse Oximetry 96 96 Oxygen Delivery Method Room Air Oxygen Flow Rate 0 Narrative Exam Narrative: Abdomen soft nontender Incision clean dry and intact Objective Labs Result Diagrams: 02/23/21 05:20 02/23/21 05:20 [facility] Medical History Arthritis Diverticula of colon Perforated diverticulum Surgical History History of creation of ostomy History of total left knee replacement History of total right knee replacement Hx of circumcision Hx of colostomy (05/28/20) Hx of vasectomy S/P surgery on nasal septum Social History household members: none Smoking Status: Former smoker alcohol intake: current Assessment & Plan Assessment and plan (1) Postoperative examination: Status: Acute Plan Will advanced to regular diet but I instructed him to go slowly. If he tolerates diet will potentially discharge home tomorrow. Time Spent With Patient Critical Care time: I spent a total of [] minutes of critical care time on this patient's care today; this time is exclusive of procedural time.
[2021-02-25] MEDS: SODIUM CHLORIDE 0.9% FLUSH 10 ML IV ×2 (14:05→20:52)
--- NOTE | 2021-02-25 15:08 | PC.NURSE ---
Patient alert, oriented denies pain and nausea. Tolerated general diet for lunch. Ambulating indep in [place], gait steady.
--- NOTE | 2021-02-25 21:50 | PC.NURSE ---
Patient is alert and oriented. Breath sounds CTA with RA sat of 96%. HRR. BP elevated at 142/93 and has been trending higher. Denied nausea. BT present and is passing flatus; abdomen is soft, slightly distended and tender to touch but denied pain and declined scheduled oxycodone. 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 Dressings to right and left of midline are CDI. Wearing abdominal binder. Denied dysuria, frequency or urgency with urination. Is independent with mobility. Bilateral calf SCD's applied. Fall risk score is low.
[2021-02-26] VITALS: BP 139/84; PULSE 68; RESP 18; TEMP 36.6; O2SAT 96
[2021-02-26] MEDS: MELATONIN 3 MG TABLET 9 MG PO (00:14)
[2021-02-26 04:00] VITALS: BP 159/82; PULSE 66; RESP 18; TEMP 36.7; O2SAT 95
[2021-02-26 08:00] VITALS: BP 153/93; PULSE 65; RESP 18; TEMP 36.6; O2SAT 95
[2021-02-26] MEDS: ENOXAPARIN 40 MG/0.4 ML SYRINGE SUBCUT (08:01)
[2021-02-26] MEDS: PANTOPRAZOLE 40 MG VIAL IV (08:01)
[2021-02-26] MEDS: SODIUM CHLORIDE 0.9% FLUSH 10 ML IV (08:02)
[2021-02-26 08:56] VITALS: O2SAT 94
[2021-02-26 12:00] VITALS: BP 141/94; PULSE 73; RESP 18; TEMP 36.6; O2SAT 97
--- NOTE | 2021-02-26 16:26 | PM.DS.1 ---
History of Present Illness History of Present Illness Date Patient Seen: 02/26/21 Time Patient Seen: 16:26 Chief complaint: Colostomy reversal Discharge Providers Provider Date of admission: 02/20/21 07:54 Discharge Date: 02/26/21 Primary care physician: Cuate King MD Consults: 02/20/21 12:39 Consult to Discharge Planning Routine Comment: Consult to Occupational Therapy Evaluate & Treat Comment: Physician Instructions: Evaluate and treat Consult to Physical Therapy Evaluate & Treat Comment: Physician Instructions: Evaluate and Treat Discharge provider: Stanley Millan MD Summary Hospital Course Hospital Course: The patient underwent a scheduled colostomy reversal by Dr. Pablo on February 20, 2021. Initially he had some ileus but soon he was tolerating regular diet having bowel function. He was discharged home on 02/26/2021. He will follow up with Dr. Pablo in about a week. Exam Vital Signs (past 8 hours): - 02/26/21 08:56 02/26/21 12:00 Temperature 97.8 F Pulse Rate 73 Respiratory Rate 18 Blood Pressure 141/94 H Pulse Oximetry 94 97 Oxygen Delivery Method Room Air Oxygen Flow Rate 0 Objective Labs Result Diagrams: 02/23/21 05:20 02/23/21 05:20 [facility] Medical History Arthritis Diverticula of colon Perforated diverticulum Surgical History History of creation of ostomy History of total left knee replacement History of total right knee replacement Hx of circumcision Hx of colostomy (05/28/20) Hx of vasectomy S/P surgery on nasal septum Social History household members: none Smoking Status: Former smoker alcohol intake: current Discharge Plan Discharge Plan Patient Disposition: Home Discharge orders & Medications Prescriptions: Continued naproxen sodium [Aleve] 220 mg capsule 220 mg PO BID PRN (Reason: pain) 0RF melatonin 10 mg capsule 10 mg PO BEDTIME 0RF Discontinued metronidazole 500 mg tablet 500 mg PO TID Qty: 3 0RF Rx Instructions: TAKE 1 tab at 1 PM, 2PM and 10 PM the day before surgery neomycin 500 mg tablet 1 g PO TID Qty: 6 0RF Rx Instructions: TAKE 2 tabs at 1 PM, 2 PM, and 10 PM the day prior to surgery Follow up/Referrals: Cuate King MD [Primary Care Provider] - Diet/Activity/Treatments Diet: Regular Skin/Wound/Dressing Care Report to your healthcare provider any signs of infection, such as:: chills, fever, night sweats, increased pain, unusual drainage and unusual redness Discharge Data Primary Care Provider: Cuate King
== END 2021-02-26 17:09 | disposition home or self-care (01) | DRG 344 ==
PROVIDERS: Urology; Admitting Provider Surgery; PCP Internal Medicine; Referring Provider Surgery; Visit Provider Surgery
PROC: 0T9B80Z Drainage of Bladder with Drainage Device, Via Natural or Artificial Opening Endoscopic (ICD-10-PCS; principal; 2021-02-20 07:45)
PROC: 0DSM0ZZ Reposition Descending Colon, Open Approach (ICD-10-PCS; CPT 44620; 2021-02-20 07:45)
DX: Z43.3 Encounter for attention to colostomy (principal); K65.8 Other peritonitis; K56.7 Ileus, unspecified; K57.92 Diverticulitis of intestine, part unspecified, without perforation or abscess without bleeding; Z90.49 Acquired absence of other specified parts of digestive tract; Z87.891 Personal history of nicotine dependence; Z20.822 Contact with and (suspected) exposure to COVID-19
CPT/HCPCS: 36415; 44626; 52332; 74022; 80048; 81002; 83735; 84100; 85025; 87635; 94760; 97116; 97162; 97165; 97530; 97535; 99214; C9803; C9113; J1100; J1170; J1650; J2250; J2405; J2543; J2704; J2765; J3010

== ENCOUNTER → 2024-08-09 15:30 | Outpatient (CLI) | payer MEDICARE, OTHER, SELFPAY ==
[2021-02-20 15:21] VITALS: BMI 29.2
--- NOTE | 2024-08-09 15:38 | DI.RAD.S_ITS ---
PROCEDURE: XR WRIST LT MIN 3V INDICATIONS: Left wrist pain TECHNIQUE: Four views of the wrist were acquired. COMPARISON: None. FINDINGS: Bones: No fractures or dislocations. No suspicious bony lesions. Moderate to severe degenerative changes at the 1st carpometacarpal joint. Moderate radiocarpal osteoarthrosis. Mild widening of the scapholunate interval. Soft tissues: No suspicious soft tissue calcifications. Mild soft tissue edema surrounding the wrist. IMPRESSION: 1. No acute bony abnormality. 2. 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 3. Mild widening of the scapholunate interval may indicate underlying ligament laxity or tearing. 4. Nonspecific soft tissue edema surrounding the wrist. Approved by: Inocente Kaba M.D. on 08/09/2024 at 17:48
== END ==
PROVIDERS: PCP Internal Medicine; Referring Provider Family Medicine; Visit Provider Family Medicine
DX: M18.12 Unilateral primary osteoarthritis of first carpometacarpal joint, left hand (principal); M25.532 Pain in left wrist
CPT/HCPCS: 73110

== ENCOUNTER → 2025-03-18 14:12 | Outpatient (CLI) | payer MEDICARE, OTHER, SELFPAY ==
[2021-02-20 15:21] VITALS: BMI 29.2
--- NOTE | 2025-03-18 14:14 | DI.US.S_ITS ---
PROCEDURE: US ABDOMEN LIMITED INDICATIONS: RUQ pain TECHNIQUE: Real-time scanning was performed of the abdominal and retroperitoneal organs, with image documentation. COMPARISON: CT, CT ABDOMEN PELVIS W CON, 05/28/2020, 14:32. FINDINGS: Liver: Liver is diffusely increased in echogenicity. No focal hepatic abnormalities identified. Normal hepatic size. Gallbladder: No gallstones. No wall thickening. No pericholecystic edema. Negative sonographic Elliott's sign. Biliary ducts: Intrahepatic bile ducts are non-dilated. Extrahepatic bile duct caliber measures 6 mm. Normal is 6-7 mm or less in diameter, or 10 mm or less post-cholecystectomy. Pancreas: Not well seen Miscellaneous: No free abdominal fluid. IMPRESSION: 1. Increased hepatic echogenicity likely related to hepatic steatosis; however other hepatocellular disease processes cannot be excluded and clinical correlation is recommended. 2. Unremarkable sonographic appearance of the gallbladder. Dictated by: Kevin GRANT Interpreted: Chance Lane MD on 03/18/2025 at 16:00 Transcribed by: [place] on 03/18/2025 at 16:01 Approved by: Chance Lane M.D. on 03/24/2025 at 16:10
== END ==
LOC: US 14:14
PROVIDERS: PCP Internal Medicine; Referring Provider Internal Medicine; Visit Provider Family Medicine
DX: R10.11 Right upper quadrant pain (principal); R93.2 Abnormal findings on diagnostic imaging of liver and biliary tract
CPT/HCPCS: 76705

== ENCOUNTER → 2025-04-04 14:47 | Outpatient (CLI) | payer MEDICARE, OTHER, SELFPAY ==
[2021-02-20 15:21] VITALS: BMI 29.2
--- NOTE | 2025-04-04 14:49 | DI.MRI.S_ITS ---
PROCEDURE: MR ABDOMEN WO/W CON INDICATIONS: RUQ pain/ Abnormal liver ultrasound TECHNIQUE: Coronal HASTE, axial 2D FLASH in- and [id number]; axial breath-hold T2 FSE. Dynamic axial VIBE during the administration of contrast; post-contrast coronal VIBE or 2D FLASH with fat saturation from the hepatic dome to the iliac crests. Optional diffusion weighted imaging and ADC may be performed. COMPARISON: [facility], US, US ABDOMEN LIMITED, 03/18/2025, 14:57. FINDINGS: Image quality: Diagnostic. Lung bases: Unremarkable. Liver: Moderate signal dropout on the out of phase sequence, indicating steatosis. No solid mass. Subcentimeter segment 4A cyst. Gallbladder: No gallstones or wall thickening. Biliary ducts: No biliary dilation. Pancreas: 5 mm cystic lesion in the pancreatic neck, without connection to the pancreatic duct (series 4, image 21). Spleen: Size is within normal limits. Adrenal Glands: No adrenal nodules. Kidneys and Ureters: No hydronephrosis. No solid mass. No complex renal cystic lesion which requires follow up. Stomach and Bowel: Normal colonic caliber, without significant wall thickening. Colonic diverticulosis without evidence of diverticulitis. Duodenal diverticulum projecting off the 3rd segment of the duodenum measuring 4.3 x 3.1 cm. Additional duodenal diverticulum extending into the posterior pancreatic head measuring 2.5 x 1.8 cm. Peritoneum: No abnormal intraperitoneal fluid. No free air. Ventral Wall: No hernia. Abdominal Nodes: No retroperitoneal or mesenteric adenopathy by size criteria. Vessels: Aorta and inferior vena cava are normal in size. Bones: No aggressive osseous abnormality. IMPRESSION: Moderate hepatic steatosis. 5 mm T2 hyperintense cystic lesion without suspicious features in the pancreatic neck. 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 Recommend 2 year follow-up with MRI/MRCP. A couple of prominent duodenal diverticula, without biliary obstruction. Dictated by: Maxim Chavez M.D. on 04/05/2025 at 9:00 Approved by: Maxim Chavez M.D. on 04/05/2025 at 9:04
== END ==
PROVIDERS: PCP Internal Medicine; Referring Provider Family Medicine; Visit Provider Family Medicine
DX: K86.2 Cyst of pancreas (principal); R93.2 Abnormal findings on diagnostic imaging of liver and biliary tract; K57.90 Diverticulosis of intestine, part unspecified, without perforation or abscess without bleeding; K57.10 Diverticulosis of small intestine without perforation or abscess without bleeding; K76.0 Fatty (change of) liver, not elsewhere classified
CPT/HCPCS: 74183; A9579